=== PATIENT | female | born 1950 | race Caucasian/White ===

== ENCOUNTER 2018-07-29 13:41 | Outpatient (REF) | payer MEDICARE, BC, SELFPAY ==
[2018-07-29 14:14] LABS: Cholesterol 153 mg/dL (50-200); HDL Cholesterol 36 mg/dL (40-60); LDL CHOLESTEROL 93 mg/dL (<100); Triglyceride 291 mg/dL (30-150)
== END 2018-07-29 14:01 ==
LOC: NCHCN 13:41
PROVIDERS: PCP Internal Medicine; Visit Provider Family Medicine
DX: E78.5 Hyperlipidemia, unspecified (principal)
CPT/HCPCS: 80061; 83721

== ENCOUNTER 2019-07-28 14:06 | Outpatient (REF) | payer MEDICARE, BC, SELFPAY ==
[2019-07-28 22:12] LABS: Anion Gap 8.9 mmol/L (3-11); BUN 13 mg/dL (7-18); CO2 27.1 mmol/L (21.0-32.0); CREATININE 0.92 mg/dL (0.55-1.02); Calcium 8.7 mg/dL (8.5-10.1); Chloride 100 mmol/L (98-107); Glucose 74 mg/dL (70-100); Potassium 4.6 mmol/L (3.5-5.1); Sodium 136 mmol/L (136-145)
== END 2019-07-28 14:26 ==
LOC: NCHCN 14:06
PROVIDERS: PCP Internal Medicine; Visit Provider Family Medicine
DX: E87.1 Hypo-osmolality and hyponatremia (principal)
CPT/HCPCS: 80048

== ENCOUNTER 2019-10-20 14:28 | Emergency (ER) | payer MEDICARE, BC, SELFPAY ==
[2019-10-20 14:32] VITALS: BP 156/77; PULSE 71; RESP 16; TEMP 36.3; O2SAT 97
--- NOTE | 2019-10-20 14:48 | ED.GENADUL_ITS ---
Discharge Plan Disposition Patient Disposition: HOME Condition: Good Discharge Details Chief Complaint: Orthopedic Clinical Impression: Subungual hematoma Primary Care Provider: Erin Erickson ED Provider: Nic Tolliver Home Meds and New Rx's Prescriptions: New cephalexin [Keflex] 500 mg capsule 500 mg PO QID 5 Days Qty: 20 RF: 0 No Action atenolol 100 MG tablet 100 mg PO DAILY RF: 0 lovastatin 40 MG tablet 40 mg PO DAILY RF: 0 aspirin [Aspir-81] 81 MG tablet,delayed release (DR/EC) 81 mg PO DAILY RF: 0 levothyroxine 88 MCG tablet 88 mcg PO DAILY RF: 0 metformin [Glucophage] 1,000 MG tablet 1,000 mg PO BID RF: 0 hydrochlorothiazide 25 MG tablet 25 mg PO DAILY RF: 0 lisinopril 40 MG tablet 40 mg PO DAILY RF: 0 liraglutide [Victoza 2-Thee] 0.6 MG/0.1 ML pen injector 1.2 mg SQ DAILY RF: 0 glimiperide 4 mg PO BID RF: 0 humalog kwikpen 2 - 8 units Sub-Q TID RF: 0 lantus 28 units HS RF: 0 zovirax RF: 0 Discharge Instructions Instructions: Subungual Hematoma (ED) Additional Instructions: There is a questionable very small fracture at the distal fingertip. Out of an abundance of precaution I would recommend taking the antibiotic as directed. Please take it with yogurt with live culture. Please keep the splint on for the next week to help with the healing process. Please take Tylenol and Motrin as needed for pain. If you notice any worsening of your symptoms, or any new symptoms such as redness or worsening swelling of your finger, vomiting, diarrhea, fever, chills, shortness of breath, chest pain, numbness, weakness, or fainting , please return immediately to the emergency department for reevaluation. Please follow up with your primary care provider as soon as possible for reassessment and reevaluation. As always, it was a pleasure participating in your medical care today. Referrals: Erin Erickson [Primary Care Provider] - Medical Decision Making This is a pleasant 69-year-old female who presents today for evaluation of trauma to her left thumb. The patient had her left thumb crushed in a car door 5 days ago. It was her nondominant hand. Since then she developed there is subungual hematoma in her left thumb. Pain is mild to moderate. She has no significant pain with movement otherwise. Physical exam demonstrates notable subungual hematoma and well attached nail. The nail was fenestrated with electrocautery, notable amount of blood was removed, no pus. Improvement of pain was certainly present, patient was also given a digital block which also notably improved her symptoms. X-ray is concerning for very small minimal fracture. Out of an abundance of precaution we will prescribe Keflex to prevent/avoid any significant infection. Tetanus will be updated here today. I have extensively reviewed the treatment plan and discharge instructions with the patient. I have addressed all patient concerns at this time. The patient was made aware of what symptoms to monitor for that would warrant a return to the emergency department. Discussed the plan with the patient, they demonstrate verbal understanding and agreement with our assessment and plan at this time. HPI General Date/Time Provider Initiated Documentation: 10/20/19 14:35 . HPI Narrative: This is a 69-year-old female with no significant past medical history except for diabetes, hypertension, thyroid disease, who presents today for evaluation of left thumb pain. 5 days ago on her nondominant hand she squished the tip of her left thumb in a car door. She has had subungual hematoma in her left thumb since then has had pain. She is unsure of her tetanus status. Pain is unrelieved with Tylenol or Motrin. She denies fever chills or redness. Pain is made worse with movement. She denies any other complaints at this time. No other modifying factors. Related Data Home Medications Medication Instructions Recorded Confirmed Glimiperide 4 mg PO BID 12/10/16 12/19/16 Humalog Kwikpen 2 - 8 units SUB-Q TID 12/10/16 12/19/16 Lantus 28 units HS 12/10/16 12/19/16 aspirin [Aspir-81] 81 mg PO DAILY tab-cap 12/10/16 12/19/16 atenolol 100 mg PO DAILY tab-cap 12/10/16 12/19/16 hydrochlorothiazide 25 mg PO DAILY tab-cap 12/10/16 12/19/16 levothyroxine 88 mcg PO DAILY tab-cap 12/10/16 12/19/16 liraglutide [Victoza 2-Thee] 1.2 mg SQ DAILY ml 12/10/16 12/19/16 lisinopril 40 mg PO DAILY tab-cap 12/10/16 12/19/16 lovastatin 40 mg PO DAILY tab-cap 12/10/16 12/19/16 metformin [Glucophage] 1,000 mg PO BID tab-cap 12/10/16 12/19/16 cephalexin [Keflex] 500 mg PO QID 5 Days #20 cap 10/20/19 Previous Rx's Medication Instructions Recorded cephalexin [Keflex] 500 mg PO QID 5 Days #20 cap 10/20/19 Allergies Allergy/AdvReac Type Severity Reaction Status Date / Time No Known Allergies Allergy Unverified 10/20/19 14:36 General Stated Complaint: Orthopedic SABAS: 4 Review of Systems All systems reviewed & are unremarkable except as noted in HPI and below PFSH Surgical History (Updated 09/01/18 @ 14:34 by [facility]) Cholecystectomy Colonoscopy - IV Sedation (12/19/16) Tubal Ligation, Family History Mother CAD (coronary artery disease) Pacemaker Father Diabetes CAD (coronary artery disease) Sister CAD (coronary artery disease) Social History Smoking/Tobacco Use Status: Former Tobacco Use Alcohol Intake: never Drug use: Never Do you feel safe at home: Yes Do you feel safe in your relationship?: Yes Exam Narrative Exam Narrative: 1.Const: Well-nourished, Well-developed, appearing stated age 2.Eyes: PERRL, no conjunctival injection, and symmetrical lids. 3.ENT: Atraumatic external nose and ears. Moist MM. Neck: Symmetric, trachea midline, No thyromegaly. 4.CVS: +S1/S2, No murmurs or gallops. Peripheral pulses 2+ and equal in all extremities. Brisk capillary refill in all extremities. 5.RESP: Unlabored respiratory effort. Clear to auscultation bilaterally. No wheezes rales or rhonchi 6.GI: Soft, Nontender/Nondistended, No hepatosplenomegaly. No guarding or rebound. 7.MSK: Normocephalic. Patient demonstrates evidence of notable contusion and subungual hematoma under her left thumbnail. Patient demonstrates brisk capillary refill, good flexion extension, notable pain on palpation of the distal tip of the finger. No evidence of laceration or other abnormality. No cyanosis or clubbing, Normal movement of all extremities 8.Skin: Warm, Dry. Please see musculoskeletal. 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 Sensation grossly intact, no focal neurologic deficits. 10.Psych: (AAO) x3. Appropriate mood and affect Course Vital Signs Vital signs: Vital Signs Temperature 36.3 C L 10/20/19 14:32 Pulse 71 10/20/19 14:32 Respiratory Rate 16 10/20/19 14:32 Blood Pressure 156/77 H 10/20/19 14:32 Pulse Oximetry 97 10/20/19 14:32 Temperature 36.3 C L 10/20/19 14:32 Temperature Source Skin 10/20/19 14:32 Pulse 71 10/20/19 14:32 Respiratory Rate 16 10/20/19 14:32 Respiratory Effort 10/20/19 14:36 Blood Pressure 156/77 H 10/20/19 14:32 Blood Pressure Position Sitting 10/20/19 14:32 Pulse Oximetry 97 10/20/19 14:32 Oxygen Delivery Method Room Air 10/20/19 14:32 Oxygen Flow Rate 0 10/20/19 14:32 Pain Level 8 10/20/19 14:32 Comment 10/20/19 14:32
--- NOTE | 2019-10-20 14:50 | DI.RAD_ITS ---
EXAM: XR THUMB LT INDICATION: crushed tip. COMPARISON: No exams were available for comparison TECHNIQUE: 2D digital imaging was performed. FINDINGS: Gauze is seen over the thumb. No fracture or foreign body is identified.
[2019-10-20] MEDS: Cephalexin 500 MG CAP PO (15:05)
== END 2019-10-20 15:21 | disposition home or self-care (01) ==
PROVIDERS: Emergency Provider Student in an Organized Health Care Education/Training Program; PCP Family Medicine
DX: S60.111A Contusion of right thumb with damage to nail, initial encounter (principal); W23.0XXA Caught, crushed, jammed, or pinched between moving objects, initial encounter
CPT/HCPCS: 11740; 90471; 99283; 73140; 99281

== ENCOUNTER 2020-02-06 14:37 | Outpatient (REF) | payer MEDICARE, BC, SELFPAY ==
[2020-02-09 09:11] LABS: SARS-CoV-2 RNA Undetected (Undetected); SARS-CoV-2 Specimen Source NASOPHARYGEAL
== END 2020-02-06 14:57 ==
LOC: NCHCN 14:37
PROVIDERS: PCP Family Medicine; Visit Provider Physician Assistant
DX: Z20.828 Contact with and (suspected) exposure to other viral communicable diseases (principal); J06.9 Acute upper respiratory infection, unspecified

== ENCOUNTER 2020-05-28 13:54 | Outpatient (REF) | payer MEDICARE, BC, SELFPAY ==
[2020-05-28 23:45] LABS: Hemoglobin A1C 7.3 % (3.8-5.6)
[2020-05-29 00:02] LABS: BUN 15 mg/dL (7-18); Calcium 8.7 mg/dL (8.5-10.1); Glucose 284 mg/dL (74-106)
[2020-05-29 00:03] LABS: Anion Gap 9.6 mmol/L (3-11); CO2 26.4 mmol/L (21.0-32.0); CREATININE 0.98 mg/dL (0.55-1.02); Chloride 96 mmol/L (98-107); Estimated GFR 56.11 (mL/min/1.73m2); Potassium 4.7 mmol/L (3.5-5.1); Sodium 132 mmol/L (136-145)
[2020-05-29 00:13] LABS: Vitamin D 25 Total 60.1 ng/ml (30-100)
== END 2020-05-28 14:14 ==
LOC: LBN 13:54
PROVIDERS: PCP Family Medicine; Visit Provider Internal Medicine Endocrinology, Diabetes & Metabolism
DX: E55.9 Vitamin D deficiency, unspecified (principal); E11.40 Type 2 diabetes mellitus with diabetic neuropathy, unspecified; E03.8 Other specified hypothyroidism
CPT/HCPCS: 80048; 82306; 83036; 84443

== ENCOUNTER 2020-07-18 21:03 | Outpatient (REF) | payer MEDICARE, BC, SELFPAY ==
[2020-07-21 05:49] LABS: Patient Race White; SARS-CoV-2 RNA Undetected (Undetected); SARS-CoV-2 Specimen Source Nasal
== END 2020-07-18 21:23 ==
LOC: NCHCN 21:03
PROVIDERS: PCP Family Medicine; Visit Provider Family Medicine
DX: Z20.828 Contact with and (suspected) exposure to other viral communicable diseases (principal)
CPT/HCPCS: U0003

== ENCOUNTER 2021-02-01 06:26 | Day surgery (SDC) | payer MEDICARE, BC, SELFPAY ==
[2021-02-01] MEDS: Tropicam./Phenyleph. (1/2.5%) 5 ML BTL OS ×3 (06:47→06:59)
[2021-02-01 06:57] VITALS: BP 158/84; PULSE 67; RESP 16; TEMP 36.3; O2SAT 99
[2021-02-01] MEDS: Lidocaine 1% Pres-Free 5 ML VIAL (07:27)
[2021-02-01] MEDS: Balanced Salt Soln.-PLUS 500 ML BAG (07:29)
[2021-02-01] MEDS: Lidocaine 2% Jelly 6 ML SYR (07:29)
[2021-02-01] MEDS: Povidone-Iodine Ophth 30 ML BTL (07:30)
[2021-02-01] MEDS: Duovisc Viscoelastic System EACH 1 EACH (07:30)
[2021-02-01] MEDS: Tetracaine 0.5% 4 ML BTL OS (07:32)
--- NOTE | 2021-02-01 07:49 | W.PM.DSUDISC ---
Discharge Plan Disposition Patient Disposition: HOME Condition: Good Discharge Details Attending Provider: Geoffrey Yepez Home Meds and New Rx's Prescriptions: No Action lovastatin 40 mg Tablet 40 mg PO DAILY RF: 0 metoprolol succinate 100 mg Tablet Extended Release 24 Hr 100 mg PO DAILY RF: 0 calcium 500 mg Tablet 1,000 mg PO DAILY RF: 0 Theragran Tablet 1 tab PO DAILY RF: 0 aspirin [Aspir-81] 81 mg Tablet,Delayed Release (Dr/Ec) 81 mg PO DAILY RF: 0 levothyroxine 75 mcg Tablet 75 mcg PO DAILY RF: 0 metformin [Glucophage] 1,000 mg Tablet 1,000 mg PO BID RF: 0 glimepiride 4 mg Tablet 4 mg PO BID RF: 0 acyclovir 200 mg Capsule 200 mg PO TID PRNRF: 0 lisinopril 40 mg Tablet 40 mg PO DAILY RF: 0 fluoxetine 20 mg Capsule 20 mg PO DAILY RF: 0 insulin lispro [Humalog KwikPen Insulin] 100 unit/mL Insulin Pen 2 - 8 unit SUBCUT AC RF: 0 Lantus U-100 Insulin 100 unit/mL Cartridge 50 unit SUBCUT HS RF: 0 Victoza 2-Thee 0.6 mg/0.1 mL (18 mg/3 mL) Pen Injector 1.2 mg SUBCUT DAILY RF: 0 Discharge Instructions Stand Alone Forms: Post-op Topical Cataract, Annie Boggs (DSU) Discharge Orders Discharge Orders: Discharge Order (Routine); Ordered 02/01/21 Ordered By: Geoffrey Yepez DS: Diagnosis Discharge Diagnosis (1) Posterior subcapsular age-related cataract of left eye: Status: Resolved (2) Cortical cataract of left eye: Status: Resolved (3) Nuclear sclerotic cataract of left eye: Status: Resolved
--- NOTE | 2021-02-01 07:50 | ROE_ITS ---
Date of service: 02/01/21 Time of Service: 07:50 Operative Note Operative Note DATE OF PROCEDURE: 02/01/21 PRE-OP DIAGNOSIS: Nuclear/cortical/posterior subcapsular cataract, left eye Status post LASIK Desire for monovision, OS near, -2.0 refractive target POST-OP DIAGNOSIS: same PROCEDURE: Cataract extraction using phacoemulsification with intraocular lens implant, left eye SURGEON: Geoffrey Yepez ANESTHESIA TYPE: Local By Surgeon and MAC Refer to Anesthesia Record PATHOLOGY: none sent COMPLICATIONS: None Patient was transported to: same day Patient's condition: stable Implants: Angel [employer] / [employer] Tecnis ZCB00 Indications: Progressive decreased vision due to cataract, left eye Procedure Description: CATARACT SURGERY OPERATIVE REPORT PREOPERATIVE DIAGNOSIS: Nuclear/cortical/posterior subcapsular cataract, left eye Status post LASIK Desire for monovision, OS near, -2.0 target POSTOPERATIVE DIAGNOSIS: Same OPERATION: Cataract extraction using phacoemulsification with posterior chamber intraocular lens implant, left eye. IOL: IOL Clinical Application Consultant/Model: [employer] Vision / [employer] Tecnis ZCB00 IOL Power: + 24.5 diopters IOL Serial Number: [id number] Optic Diameter: 6.0mm Haptic/Overall Diameter: 13.0mm PHACO INFO: Sergo [employer] Vision System with OZil and Active Fluidics Cumulative Dispersed Energy (CDE): 8.35 seconds SURGEON: Geoffrey Yepez MD, RAUL ANESTHESIA: Monitored Anesthesia Care (MAC), with local sub-tenon's anesthetic infiltration COMPLICATIONS: None SPECIMENS: None INDICATIONS FOR PROCEDURE: The patient is a 70-year-old lady who has previously undergone corneal laser refractive surgery. She has now developed symptomatic bilateral nuclear/cortical/posterior subcapsular cataract. She desires cataract surgery and attempt to improve and maximize her vision. In addition, she desires monovision, left eye near. Postoperative refractive target is approximately - 2.0 diopters. The option of cataract surgery was offered to the patient and she wished to proceed. PROCEDURE: The correct surgical eye was identified and marked as the left eye and the pupil was dilated in the preoperative area using mydriatics and cycloplegics. The dilated pupil size was 6.5 mm. Oral sedation was administered in the form of an Imprimis MKO Melt (midazolam 3mg/ketamine 25mg/ondansetron 2mg). The patient was brought to the operating room where cardiopulmonary jaspreet toring was instituted and surgical time-out was performed, confirming the correct operative eye and IOL power. Topical anesthesia was administered and ophthalmic povidone-iodine 5% was instilled into the conjunctival fornices. Lidocaine gel was applied to the cornea and the tavo-ocular area was prepped with Betadine 10% solution and draped in the usual sterile fashion for intraocular surgery, including an aperture drape. A Tegaderm transparent film dressing was cut in half and used to cover the lashes and lid margins. Care was taken to sequester the lashes and lid margins under the Tegaderm dressing. A lid speculum was placed between the lids of the operative eye and the Thom-Tisha operating microscope was maneuvered into position. Osmel scissors were then used to make a conjunctival buttonhole approximately 6mm posterior to the limbus in the inferonasal quadrant. Blunt dissection was carried out to expose bare sclera, and a blunt-tipped sub-tenon?s anesthesia cannula was introduced and passed posteriorly along the globe where non- preserved plain lidocaine was injected into posterior sub-Tenon?s space. A sideport knife was used to make a paracentesis port superior/superiortemporally. Intraocular phenylephrine/lidocaine was injected into the anterior chamber. The anterior chamber was then filled with viscoelastic. A 2.4mm keratome knife was used to create a half-thickness groove at the limbus and then to construct a three-plane near-clear corneal tunnel extending 2.0mm into clear cornea in the temporal position. . A flap was raised on the anterior capsule and capsulorhexis forceps were used to complete a continuous curvilinear capsulorhexis of 5.5 mm. Balanced salt solution was then used to perform cortical cleaving hydrodissection and nuclear hydrodelineation until the lens could be freely rotated within the capsular bag. The lens nucleus was then disassembled and removed within the capsular bag and iris plane using phacoemulsification. Residual cortical material was removed using the 45-degree angled silicone I/A tip with 0.3mm port. The posterior capsule was carefully polished to remove as much residual lens epithelial cells as safely possible. The capsular bag was then inflated and the anterior chamber deepened with viscoelastic. The lens implant described above was inserted into the capsular bag using the MILDRED [place] Injector. A Kuglen hook was used to dial the IOL into position. Residual viscoelastic was then removed first from posterior to the IOL, then from the anterior chamber using the I/A handpiece. The lens implant was noted to center nicely within the capsular bag. The incisions were stromally hydrated, and the anterior chamber was reformed using BSS. Then 0.5cc of moxifloxacin 1.0mg/ml were injected into the capsular bag and anterior chamber. The incisions were checked with a Weck spear and found to be secure. Several drops of ophthalmic povidone-iodine 5% were then applied to the eye followed by two drops of Imprimis combination prednisolone/moxifloxacin/nepafenac solution. The drapes were removed and a clear plastic protective eye shield was placed over the eye. The patient was then returned to Same Day Surgery in stable condition.
[2021-02-01 08:16] VITALS: BP 158/73; PULSE 72; RESP 16; TEMP 36.6; O2SAT 97
== END 2021-02-01 08:41 | disposition home or self-care (01) ==
PROVIDERS: Visit Provider Ophthalmology
PROC: (CPT 66984; principal; 2021-02-01 07:30)
DX: H25.042 Posterior subcapsular polar age-related cataract, left eye (principal); H25.12 Age-related nuclear cataract, left eye; E78.00 Pure hypercholesterolemia, unspecified; I10 Essential (primary) hypertension; E11.9 Type 2 diabetes mellitus without complications; Z79.4 Long term (current) use of insulin; E03.9 Hypothyroidism, unspecified
CPT/HCPCS: 66984; V2632

== ENCOUNTER 2021-02-14 06:45 | Outpatient (CLI) | payer MEDICARE, BC, SELFPAY ==
--- NOTE | 2021-02-14 | DI.MAMMO_ITS ---
EXAM: MG MAMMO SCREENING CLINICAL HISTORY: SCREENING, Z12.31. TECHNIQUE: Bilateral full field digital CC and MLO mammographic images were obtained with 3D tomosyn thesis and utilizing computer aided detection (CAD). COMPARISON: Prior mammograms dating back to 2013, the most recent being October 2016. FINDINGS: There are new microcalcifications posteriorly in the left breast only partially included in the field of view here and requiring spot Mag views. Benign-appearing nodules both breasts are again noted which are unchanged and probably benign lymph n odes. There is no significant architectural distortion nor skin thickening-retraction. IMPRESSION: There is new microcalcification group located quite posteriorly in the left breast, not evident on pr ior mammograms. Spot Mag views recommended this microcalcification group. BI-RADS Category 0 - Assessment Incomplete: Need additional imaging evaluation Breast Density - Category B - Scattered areas of fibroglandular density Breast density Category C or D implies that the patient has dense breast tissue. Dense breast tissue can make it harder to find cancer on a mammogram. Dense breast tissue is also associated with an incr eased risk of breast cancer. This information about the result of the mammogram report was provided to the patient to raise their awareness. Use this report when you speak with the patient about their risks for breast cancer, which includes their family history. At that time, you may recommend additional screening tests (Ultrasoun d or MRI) as these tests may add significant information. A negative radiographic report should not delay biopsy if a dominant or clinically suspicious mass is present. Up to ten percent of cancers are not identified on mammography. A negative report may reinforce clinical impression. Adenosis and dense breasts may obscure an underlying neoplasm. False positive reports average 6 to 10%. Patient will receive a letter notifying them of these results.
== END 2021-02-14 07:05 ==
PROVIDERS: PCP Family Medicine; Visit Provider Family Medicine
DX: Z12.31 Encounter for screening mammogram for malignant neoplasm of breast (principal); R92.8 Other abnormal and inconclusive findings on diagnostic imaging of breast
CPT/HCPCS: 77063; 77067

== ENCOUNTER 2021-02-15 09:45 | Day surgery (SDC) | payer MEDICARE, BC, SELFPAY ==
[2021-02-15] MEDS: Tropicam./Phenyleph. (1/2.5%) 5 ML BTL OD ×3 (09:55→10:10)
[2021-02-15 10:02] VITALS: BP 124/71; PULSE 73; RESP 16; TEMP 36.1; O2SAT 95
[2021-02-15] MEDS: Tetracaine 0.5% 4 ML BTL OD (11:06)
[2021-02-15] MEDS: Lidocaine 1% Pres-Free 5 ML VIAL (11:12)
[2021-02-15] MEDS: Balanced Salt Soln.-PLUS 500 ML BAG (11:15)
[2021-02-15] MEDS: Duovisc Viscoelastic System EACH 1 EACH (11:15)
[2021-02-15] MEDS: Lidocaine 2% Jelly 6 ML SYR (11:16)
[2021-02-15] MEDS: Povidone-Iodine Ophth 30 ML BTL (11:18)
--- NOTE | 2021-02-15 11:38 | W.PM.DSUDISC ---
Discharge Plan Disposition Patient Disposition: HOME Condition: Good Discharge Details Attending Provider: Geoffrey Yepez Home Meds and New Rx's Prescriptions: No Action hydrochlorothiazide 25 MG tablet 25 mg PO DAILY RF: 0 lovastatin 40 mg Tablet 40 mg PO DAILY RF: 0 metoprolol succinate 100 mg Tablet Extended Release 24 Hr 100 mg PO DAILY RF: 0 calcium 500 mg Tablet 1,000 mg PO DAILY RF: 0 Theragran Tablet 1 tab PO DAILY RF: 0 aspirin [Aspir-81] 81 mg Tablet,Delayed Release (Dr/Ec) 81 mg PO DAILY RF: 0 levothyroxine 75 mcg Tablet 75 mcg PO DAILY RF: 0 metformin [Glucophage] 1,000 mg Tablet 1,000 mg PO BID RF: 0 glimepiride 4 mg Tablet 4 mg PO BID RF: 0 acyclovir 200 mg Capsule 200 mg PO TID PRNRF: 0 lisinopril 40 mg Tablet 40 mg PO DAILY RF: 0 fluoxetine 20 mg Capsule 20 mg PO DAILY RF: 0 insulin lispro [Humalog KwikPen Insulin] 100 unit/mL Insulin Pen 2 - 8 unit SUBCUT AC RF: 0 Lantus U-100 Insulin 100 unit/mL Cartridge 50 unit SUBCUT HS RF: 0 Victoza 2-Thee 0.6 mg/0.1 mL (18 mg/3 mL) Pen Injector 1.2 mg SUBCUT DAILY RF: 0 Discharge Instructions Stand Alone Forms: Post-op Topical Cataract, Press Ganey (DSU) Discharge Orders Discharge Orders: Discharge Order (Routine); Ordered 02/15/21 Ordered By: Geoffrey Yepez DS: Diagnosis Discharge Diagnosis (1) Nuclear sclerotic cataract of right eye: Status: Resolved (2) Cortical cataract of right eye: Status: Resolved
--- NOTE | 2021-02-15 11:38 | ROE_ITS ---
Date of service: 02/15/21 Time of Service: 11:38 Operative Note Operative Note DATE OF PROCEDURE: 02/15/21 PRE-OP DIAGNOSIS: Nuclear/cortical cataract, right eye POST-OP DIAGNOSIS: same PROCEDURE: Cataract extraction using phacoemulsification with intraocular lens implant, right eye SURGEON: Geoffrey Yepez ANESTHESIA TYPE: Local By Surgeon and MAC Refer to Anesthesia Record ESTIMATED BLOOD LOSS: 0 PATHOLOGY: none sent COMPLICATIONS: None Patient was transported to: same day Patient's condition: stable Implants: [employer] / [employer] Tecnis ZCB00 intraocular lens Indications: Progressive decreased vision due to cataract, right eye Procedure Description: CATARACT SURGERY OPERATIVE REPORT PREOPERATIVE DIAGNOSIS: Nuclear/cortical cataract, right eye Status post corneal laser refractive surgery POSTOPERATIVE DIAGNOSIS: Same OPERATION: Cataract extraction using phacoemulsification with posterior chamber intraocular lens implant, right eye. IOL: IOL Drywall Professional/Model: [employer]J Vision / [employer] T[employer]nis ZCB00 IOL Power: + 23.0 diopters IOL Serial Number: [id number] Optic Diameter: 6.0mm Haptic/Overall Diameter: 13.0mm PHACO INFO: Sergo [employer] Vision System with OZil and Active Fluidics Cumulative Dispersed Energy (CDE): 8.01 seconds SURGEON: Geoffrey Yepez MD, RAUL ANESTHESIA: Monitored Anesthesia Care (MAC), with local sub-tenon's anesthetic infiltration COMPLICATIONS: None SPECIMENS: None INDICATIONS FOR PROCEDURE: The patient is a 70-year-old lady who has previously undergone corneal laser refractive surgery who has now developed significant nuclear and cortical cataracts. She has already undergone cataract surgery in the left eye and is doing well postoperatively. She now presents for cataract surgery in the right eye. PROCEDURE: The correct surgical eye was identified and marked as the right eye and the pupil was dilated in the preoperative area using mydriatics and cycloplegics. The dilated pupil size was 7.0 mm. Oral sedation was administered in the form of an Imprimis MKO Melt (midazolam 3mg/ketamine 25mg/ondansetron 2mg). The patient was brought to the operating room where cardiopulmonary monitoring was instituted and surgical time-out was performed, confirming the correct operative eye and IOL power. Topical anesthesia was administered and ophthalmic povidone-iodine 5% was instilled into the conjunctival fornices. Lidocaine gel was applied to the cornea and the tavo-ocular area was prepped with Betadine 10% solution and draped in the usual sterile fashion for intraocular surgery, including an aperture drape. A Tegaderm transparent film dressing was cut in half and used to cover the lashes and lid margins. Care was taken to sequester the lashes and lid margins under the Tegaderm dressing. A lid speculum was placed between the lids of the operative eye and the Thom-Tisha operating microscope was maneuvered into position. Osmel scissors were then used to make a conjunctival buttonhole approximately 6mm posterior to the limbus in the inferonasal quadrant. Blunt dissection was carried out to expose bare sclera, and a blunt-tipped sub-tenon?s anesthesia cannula was introduced and passed posteriorly along the globe where non- preserved plain lidocaine was injected into posterior sub-Tenon?s space. A sideport knife was used to make a paracentesis port inferiortemporally. Intraocular phenylephrine/lidocaine was injected into the anterior chamber. The anterior chamber was then filled with viscoelastic. A 2.4mm keratome knife was used to create a half-thickness groove at the limbus and then to construct a three-plane near-clear corneal tunnel extending 2.0mm into clear cornea in the superiortemporal position. . A flap was raised on the anterior capsule and capsulorhexis forceps were used to complete a continuous curvilinear capsulorhexis of 5.5 mm. Balanced salt solution was then used to perform cortical cleaving hydrodissection and nuclear hydrodelineation until the lens could be freely rotated within the capsular bag. The lens nucleus was then disassembled and removed within the capsular bag and iris plane using phacoemulsification. Residual cortical material was removed using the I/A handpiece. The posterior capsule was carefully polished to remove as much residual lens epithelial cells as safely possible. The capsular bag was then inflated and the anterior chamber deepened with viscoelastic. The lens implant described above was inserted into the capsular bag using the [employer]ED [place] Injector. A Kuglen hook was used to dial the IOL into position. Residual viscoelastic was then removed first from posterior to the IOL, then from the anterior chamber using the I/A handpiece. The lens implant was noted to center nicely within the capsular bag. The incisions were stromally hydrated, and the anterior chamber was reformed using BSS. Then 0.5cc of moxifloxacin 1.0mg/ml were injected into the capsular bag and anterior chamber. The incisions were checked with a Weck spear and found to be secure. Several drops of ophthalmic povidone-iodine 5% were then applied to the eye followed by two drops of Imprimis combination prednisolone/moxifloxacin/nepafenac solution. The drapes were removed and a clear plastic protective eye shield was placed over the eye. The patient was then returned to Same Day Surgery in stable condition.
[2021-02-15 12:05] VITALS: BP 142/79; PULSE 74; RESP 16; TEMP 36.6; O2SAT 95
== END 2021-02-15 12:29 | disposition home or self-care (01) ==
PROVIDERS: Visit Provider Ophthalmology
PROC: (CPT 66984; principal; 2021-02-15 12:30)
DX: H25.11 Age-related nuclear cataract, right eye (principal); H25.011 Cortical age-related cataract, right eye; Z96.1 Presence of intraocular lens; Z98.42 Cataract extraction status, left eye; I10 Essential (primary) hypertension
CPT/HCPCS: 66984; V2632

== ENCOUNTER 2021-02-21 01:04 | Outpatient (CLI) | payer MEDICARE, BC, SELFPAY ==
--- NOTE | 2021-02-21 | DI.MAMMO_ITS ---
EXAM: MG MAMMO SCREEN CALL BACK UNI CLINICAL HISTORY: F/U MAMMO, NEW LT MICROCALCIFICATIONS TECHNIQUE: Spot compression magnification views were performed in CC and MLO projections of the pos terior inferior left breast. COMPARISON: 2013 through recent exam 14 February 2021. FINDINGS: The recent exam showed calcifications partially included on the left cc view. The calcifications wer e difficult to include on the spot magnification views due to the far posterior location. They show a coarse, benign appearance. There is no associated architectural distortion.. IMPRESSION: BI-RADS Category 2 - Benign Findings Yearly screening mammography is recommended. Breast Density - Category B, scattered fibroglandular densities.
== END 2021-02-21 01:24 ==
PROVIDERS: Visit Provider Family Medicine
DX: Z12.31 Encounter for screening mammogram for malignant neoplasm of breast (principal); R92.8 Other abnormal and inconclusive findings on diagnostic imaging of breast; N64.59 Other signs and symptoms in breast
CPT/HCPCS: 77063; 77067

== ENCOUNTER 2021-09-19 08:26 | Outpatient (REF) | payer MEDICARE, BC, SELFPAY ==
[2021-09-19 14:14] LABS: ALT 19 U/L (14-59); AST 17 U/L (15-37); Albumin 3.9 g/dL (3.4-5.0); Alkaline Phosphatase 64 U/L (46-116); Anion Gap 6.8 mmol/L (3-11); BUN 17 mg/dL (7-18); Bilirubin, Total 0.4 mg/dL (0.2-1.0); CO2 31.2 mmol/L (21.0-32.0); Calcium 8.9 mg/dL (8.5-10.1); Calculated LDL 76 mg/dL (<100); Chloride 96 mmol/L (98-107); Cholesterol 157 mg/dL (<200); Glucose 159 mg/dL (74-106); HDL Cholesterol 41 mg/dL (40-60); Potassium 4.9 mmol/L (3.5-5.1); Sodium 134 mmol/L (136-145); Total Protein 6.5 g/dL (6.4-8.2); Triglyceride 202 mg/dL (<150)
[2021-09-19 14:19] LABS: Hemoglobin A1C 8.5 % (<5.7)
== END 2021-09-19 08:27 | disposition home or self-care (01) ==
LOC: NCHCN 08:26
PROVIDERS: Visit Provider Family Medicine
DX: E11.40 Type 2 diabetes mellitus with diabetic neuropathy, unspecified (principal); I10 Essential (primary) hypertension; E78.5 Hyperlipidemia, unspecified
CPT/HCPCS: 80053; 80061; 83036

== ENCOUNTER 2021-12-24 02:24 | Outpatient (CLI) | payer MEDICARE, SELFPAY ==
--- NOTE | 2021-12-24 14:00 | NS.NUTBLAN_ITS ---
Luis Miguel was referred to [facility] for diabetes self management education. 5'2 133 lbs BMI 24. PMH: DM2, hypertension, hyperlipidemia. Reports losing about 50 lbs in last couple of years secondary to stress and starting victoza- no appetite. Estimated Nutrient Needs: [id number] kcal, 60-70 g protein, 45-55 g fat Most recent labs (12/16/21) A1C: 7.9% chol: 157, LDL: 76, HDL: 41, Tri Meds: metformin 1000 mg BID Glimepiride 4 mg BID victoza 1.2 mg qd Humalog 2-8 units QID Lantus: 50 u q hs lisinopril, metoprolol, lovastatin MVI, [place] with D No formal exercise Diet Recall: yogurt parfait, hot dog, 1/2 cup noodles, 1/2 cup baked beans, coke Luis Miguel requests help to lower her A1C and states that stress from recent divorce and poor eating habits have taken its toll. Currently, she is not eating in excess, suspect high blood sugars due mostly to stress and anxiety. She reports having no appetite at all since taking victoza and has to force herself to eat twice daily. Typically eats a yogurt for breakfast and has a small dinner. Does drink coke during day. Session today focused on how to adjust her diet to meet her nutrient needs. She is willing to try Coke Zero and take a Glucerna shake for lunch. We also discussed importance of checking blood sugars. She does check her blood sugars in AM. Typically, running 170-180 mg/dl fasting and 220-240 mg after meals. Reports no hypoglycemic events. Dexcom 6 continuous glucose monitor offered and placed. Direct feed back on meal choices will be a great teaching tool. Will follow up with PCP for script for sensors- will need 3 sensors per month. Using her iphone as reader. Traveling to [place] this week. Follow up appt. scheduled for 01/09/22 at 2 pm for data down load. Will fax glycemic info to PCP at that time.
== END 2021-12-24 02:25 | disposition home or self-care (01) ==
LOC: DS 02:24
PROVIDERS: Visit Provider Dietitian, Registered
DX: E11.9 Type 2 diabetes mellitus without complications (principal); Z71.3 Dietary counseling and surveillance
CPT/HCPCS: 97802

== ENCOUNTER 2022-01-09 02:53 | Outpatient (CLI) | payer MEDICARE, SELFPAY | END 2022-01-09 02:54 | disposition home or self-care (01) | LOC: DS 02:54 | PROVIDERS: Visit Provider Dietitian, Registered ==

== ENCOUNTER 2022-01-16 04:41 | Outpatient (CLI) | payer MEDICARE, SELFPAY ==
--- NOTE | 2022-01-16 13:00 | NS.NUTBLAN_ITS ---
Luis Miguel returns for diabetes self management education. She has used a Dexcom G6 continuous glucose monitor from 12/19/21-01/01/22. Was unable to cook pickled meat new sensors as not approved by pharmacy. She enjoyed wearing the CGM as it kept her more mindful and aware of foods that cause hyperglycemia. Home Dm meds: 16 units lantus PM, 3-5 units humolog TID 24 hour recall: yogurt, pork rinds, hashbrowns, hot dog, pork and beans. Has stopped eating bread and pastries Ambulatory Glucose Profile (12/18-01/01/22) Average Blood Sugar: 173 mg/dl Time in Range (70-180 mg/dl): 57.3% 180-250 mg/dl: 42% >250 mg/dl: 8.7% no hypoglycemic events Blood sugars are not well controlled as per CGM report. Will benefit from continued use of CGM as feedback and as a teaching tool. [employer] to follow up with PCP office about getting approval for CGM by DME as needed with medicare. Luis Miguel takes insulin 4 times per day, making her eligible for a CGM through an DME. Luis Miguel as made some progress on her diet but continues to have elevated blood sugars. Would benefit from increase in long acting insulin, and splitting dose with an AM and PM dose. Plan: Luis Miguel to follow up with PCP re: insulin adjustment [employer] to follow up with PCP office re: approve for CGM with Medicare
== END 2022-01-16 04:42 | disposition home or self-care (01) ==
PROVIDERS: Visit Provider Dietitian, Registered
DX: E11.9 Type 2 diabetes mellitus without complications (principal); Z79.4 Long term (current) use of insulin; Z71.3 Dietary counseling and surveillance
CPT/HCPCS: 97803

== ENCOUNTER → 2023-06-26 00:54 | Outpatient (CLI) | payer MEDICARE, SELFPAY ==
--- NOTE | 2023-06-26 | DI.MAMMO_ITS ---
Exam(s) MAMMO SCREENING EXAM: MAMMO SCREENING CLINICAL HISTORY: SCREENING, Z12.31,WELL ADULT PREVENTATIVE CARE,Z00.00 TECHNIQUE: Mammograms were interpreted according to the usual protocol including computer analysis w ith CAD system, tomosynthesis and C-view imaging. COMPARISON: 2013 through 2020 FINDINGS: The breasts are composed of scattered fibroglandular densities, Breast Density category B. No suspicious masses or suspicious microcalcifications are seen. No skin thickening or abnormal axillary lymph nodes are seen. There has been no significant change from prior exams. IMPRESSION: BI-RADS Category 1, Negative mammogram Yearly screening mammography is recommended. Breast Density - Category B, scattered fibroglandular densities. A negative radiographic report should not delay biopsy if a dominant or clinically suspicious mass is present. Up to ten percent of cancers are not identified on mammography. A negative report may reinforce clinical impression. Adenosis and dense breasts may obscure an underlying neoplasm. False positive reports average 6 to 10%. Patient will receive a letter notifying them of these results.
== END ==
PROVIDERS: Visit Provider Family Medicine
DX: Z12.31 Encounter for screening mammogram for malignant neoplasm of breast (principal)
CPT/HCPCS: 77063; 77067

== ENCOUNTER 2023-09-16 18:38 | Outpatient (REF) | payer MEDICARE, SELFPAY ==
[2023-09-16 14:54] LABS: Abs Immature Grans 0.02 10^3/uL (0.0-0.06); Absolute Basophil Count 0.03 10^3/uL (0.0-0.2); Absolute Eosinophil Count 0.18 10^3/uL (0.0-0.7); Absolute Lymphocyte Count 1.71 10^3/uL (1.2-3.4); Absolute Monocyte Count 0.47 10^3/uL (0.1-0.8); Absolute Neutrophil Count 3.47 10^3/uL (1.2-6.7); Basophils % 0.5; Eosinophils % 3.1; HCT 35.5 % (36.0-46.0); Immature Grans % 0.3; Lymphocytes % 29.1; MCH 27.3 pg (27.0-33.0); MCHC 33.8 % (32.0-36.0); MCV 81 fL (80-95); MPV 10.5 fL (8.0-11.0); Platelet Count 314 10^3/uL (130-400); RDW 13.1 % (11.7-14.6); RDW-SD 38.6 fL; WBC 5.88 10^3/uL (4.4-10.8)
[2023-09-16 15:24] LABS: ALT 19 U/L (14-59); AST 15 U/L (15-37); Albumin 3.9 g/dL (3.4-5.0); Alkaline Phosphatase 55 U/L (46-116); Anion Gap 12.4 mmol/L (3-11); BUN 26 mg/dL (7-18); Bilirubin, Total 0.4 mg/dL (0.2-1.0); CO2 21.6 mmol/L (21.0-32.0); CREATININE 1.3 mg/dL (0.55-1.02); Calcium 8.8 mg/dL (8.5-10.1); Chloride 89 mmol/L (98-107); Estimated GFR 43.15 (mL/min/1.73m2); Glucose 193 mg/dL (74-106); Potassium 4.2 mmol/L (3.5-5.1); Total Protein 6.8 g/dL (6.4-8.2)
[2023-09-16 15:42] LABS: Sodium 123 mmol/L (136-145)
== END 2023-09-16 18:39 | disposition home or self-care (01) ==
LOC: NCHCN 18:38
PROVIDERS: PCP Family Medicine; Visit Provider Family Medicine
DX: R19.7 Diarrhea, unspecified (principal)
CPT/HCPCS: 80053; 85025

== ENCOUNTER 2023-09-18 16:50 | Outpatient (REF) | payer MEDICARE, SELFPAY ==
[2023-09-18 14:34] LABS: Anion Gap 11.1 mmol/L (3-11); BUN 12 mg/dL (7-18); CO2 24.9 mmol/L (21.0-32.0); Calcium 9.2 mg/dL (8.5-10.1); Chloride 95 mmol/L (98-107); Estimated GFR 59.12 (mL/min/1.73m2); Glucose 88 mg/dL (74-106); Potassium 4.5 mmol/L (3.5-5.1); Sodium 131 mmol/L (136-145)
== END 2023-09-18 16:51 | disposition home or self-care (01) ==
LOC: NCHCN 16:50
PROVIDERS: PCP Family Medicine; Visit Provider Family Medicine
DX: R19.7 Diarrhea, unspecified (principal)
CPT/HCPCS: 80048

== ENCOUNTER 2023-11-24 16:33 | Emergency (ER) | payer MEDICARE, SELFPAY ==
[2023-11-24 16:46] VITALS: BP 147/72; PULSE 79; RESP 18; TEMP 36.9; O2SAT 98
--- NOTE | 2023-11-24 17:20 | DI.RAD_ITS ---
Exam(s) XR FOOT RT COMPLETE EXAM: XR FOOT RT COMPLETE CLINICAL HISTORY: Right foot pain. TECHNIQUE: 2D digital imaging was performed of the right foot. Three images were obtained. AP, obl ique and lateral views were obtained. COMPARISON: No exams were available for comparison FINDINGS: BONES: No acute fracture is present. No bony destructive lesion is seen. There is a tiny spur at the plantar surface of the calcaneus. JOINTS: No dislocation present. The joint spaces are well maintained. SOFT TISSUE: Normal. IMPRESSION: No acute abnormality. DATA REPOSITORY: RADIATION DOSE DELIVERED:
--- NOTE | 2023-11-24 17:40 | ED.GENADUL_ITS ---
HPI General Stated Complaint: Orthopedic SABAS: 4 Date/Time Provider Initiated Documentation: 11/24/23 16:51. HPI Narrative: MDM This is a overall very well-appearing normothermic and not tachycardic 73-year-old insulin-dependent diabetic female with right erythema with signs of infection concerning for cellulitis. No pain out of proportion to suggest necrotizing soft tissue infection. Her feet are well cared for and she has no diabetic foot ulcers. No fluctuance to suggest abscess. Patient and I discussed whether or not her symptoms could be secondary to gout. She has no history of gout and her pain is not limited to 1 joint so my suspicion is lower for gout. Furthermore patient is not an alcoholic. I advised that she elevate her foot. I did not put her in a splint as I want her to monitor her foot. I offered her a work note which she declined. I advised that her foot may become slightly more swollen and more red in the next 24 hours but that if she had sudden worsening in her pain, fevers, cannot eat or drink as result of nausea or vomiting that she should return immediately to the emergency department. She understood her return indications and was discharged with empiric trial of expectant outpatient management. I treated her with clindamycin 450 mg every 8 for 14 days. 5:43 PM I asked health progressive care unit registered nurse Gail to have the patient seen by her primary care later this week for follow-up in setting of her right diabetic foot cellulitis. Chronic conditions affecting the care of the patient: Diabetes History obtained from an outside historian: N/A External record review: N/A Medications: Clindamycin Social determinants of health affecting disposition: N/A Management discussed with: N/A Treatment/interventions considered: N/A Response to therapies provided: N/A HPI This is a 73-year-old diabetic female arrived to the emergency department via private vehicle in the setting of right foot pain. Patient reports that yesterday morning she woke up and her foot on the right felt painful and swollen. It felt slightly better during the day and then returned today. She has no history of trauma to her right foot. No prior history of similar symptoms in the past. No history of gout. Patient denies routine tobacco, ethanol, and illicits. She works on a [employer] office and oftentimes is sitting. She has no diabetic foot ulcers. Her hemoglobin A1c is 7.1%. She has been recently taken off of her glargine. No fevers chills nausea vomiting chest pain or shortness of breath. Exam General: Well-appearing in no acute distress speaking in complete sentences. Head: Normocephalic, atraumatic. Eye: Extraocular eye movements intact. No conjunctival injection. No scleral icterus. Ear, nose, mouth, throat: Grossly normal inspection. Normal voice, handling secretions normally. Neck: Trachea midline. Cardiovascular: Well-perfused distal extremities. Respiratory: Nonlabored respiration. Gastrointestinal: Nondistended abdomen. Musculoskeletal: Right foot well-perfused with 2+ PT and DP pulses. Right foot is slightly warm and has mild swelling with mild erythema. No pain out of proportion. No fluctuance. Cap refill less than 2 seconds of the right toes. Patient is able to dorsi and plantarflex on the right with 5/5 strength. Patient has no signs of diabetic foot ulcers. Patient is not missing any toes on the right. Skin: Normal for age and race, grossly normal temperature and turgor. No acute rash. Neurologic: Alert and appropriate, no apparent acute deficits. Psychiatric: Mood and manner are appropriate. Grooming and personal hygiene are appropriate. Related Data Home Medications Medication Instructions Recorded Confirmed acyclovir 200 mg capsule 200 mg PO TID PRN 01/29/21 11/24/23 aspirin 81 mg tablet,delayed 81 mg PO DAILY 01/29/21 11/24/23 release calcium 500 mg tablet 1,000 mg PO DAILY 01/29/21 11/24/23 glimepiride 4 mg tablet 4 mg PO BID 01/29/21 11/24/23 insulin glargine 100 unit/mL 50 unit subcut HS 01/29/21 11/24/23 subcutaneous cartridge insulin lispro 100 unit/mL 2 - 8 unit subcut AC 01/29/21 11/24/23 subcutaneous pen (Humalog KwikPen (U-100) Insulin) levothyroxine 75 mcg tablet 75 mcg PO DAILY 01/29/21 11/24/23 liraglutide 0.6 mg/0.1 mL (18 mg/3 1.2 mg subcut DAILY 01/29/21 11/24/23 mL) subcutaneous pen injector (Victoza 2-Thee) lovastatin 40 mg tablet 40 mg PO DAILY 01/29/21 11/24/23 metformin 1,000 mg tablet 1,000 mg PO BID 01/29/21 11/24/23 (Glucophage) metoprolol succinate 100 mg 100 mg PO DAILY 01/29/21 11/24/23 tablet,extended release 24 hr therapeutic multivitamin 1 tab PO DAILY 01/29/21 11/24/23 lisinopril 20 2 tab PO DAILY 07/09/23 11/24/23 mg-hydrochlorothiazide 12.5 mg tablet omeprazole 40 mg capsule,delayed 40 mg PO DAILY 07/09/23 11/24/23 release clindamycin HCl 150 mg capsule 450 mg (3 x 150 mg) PO Q8H 14 days 11/24/23 #126 caps Previous Rx's Medication Instructions Recorded clindamycin HCl 150 mg capsule 450 mg (3 x 150 mg) PO Q8H 14 days 11/24/23 #126 caps Allergies Allergy/AdvReac Type Severity Reaction Status Date / Time betamethasone Allergy Intermediate Skin Rash Unverified 11/24/23 16:49 [From Lotrisone] clotrimazole [From Lotrisone] Allergy Intermediate Skin Rash Unverified 11/24/23 16:49 PFSH All Active Problems (Updated 11/24/23 @ 17:40 by Edwin Hensley MD) Cellulitis of right foot (Acute) Dysphagia (Acute) Medical History (Updated 11/24/23 @ 17:40 by Edwin Hensley MD) Diabetes mellitus Depression Hypothyroidism Hyperlipemia Hypertension Bilateral cataracts Surgical History (Updated 02/15/21 @ 11:38 by Geoffrey Yepez MD) Hx of cataract surgery [place] teeth extracted History of esophagogastroduodenoscopy (EGD) Hx of colonoscopy Hx of cholecystectomy Tubal Ligation, Colonoscopy - IV Sedation (12/19/16) Cholecystectomy Family History Mother CAD (coronary artery disease) Pacemaker Father Diabetes CAD (coronary artery disease) Sister CAD (coronary artery disease) Social History (System 02/13/21 @ 11:22 by Wu Pelayo) Smoking/Tobacco Use Status: Former Tobacco Use Quit Date: 11/16/03 Smoking risk assessment performed?: Yes Alcohol Intake: never Drug use: Never Substance use type: does not use Do you feel safe at home: Yes Do you feel safe in your relationship?: Yes Course Vital Signs Vital signs: Vital Signs Temperature 36.9 C 11/24/23 16:46 Pulse 79 11/24/23 16:46 Respiratory Rate 18 11/24/23 16:46 Blood Pressure 147/72 H 11/24/23 16:46 Pulse Oximetry 98 11/24/23 16:46 Temperature 36.9 C 11/24/23 16:46 Temperature Source Skin 11/24/23 16:46 Pulse 79 11/24/23 16:46 Respiratory Rate 18 11/24/23 16:46 Blood Pressure 147/72 H 11/24/23 16:46 Blood Pressure Position Sitting 11/24/23 16:46 Pulse Oximetry 98 11/24/23 16:46 Oxygen Delivery Method Room Air 11/24/23 16:46 Oxygen Flow Rate 0 11/24/23 16:46 Pain Level 9 11/24/23 16:46 Medical Decision Making Quality:SDOH Health Related Social Needs: No Data to Display Discharge Plan Disposition Patient Disposition: Home Discharge Details Clinical Impression: Cellulitis of right foot Primary Care Provider: Erin Erickson ED Provider: Edwin Hensley Home Meds and New Rx's Prescriptions: New clindamycin HCl 150 mg capsule 450 mg PO Q8H 14 Days Qty: 126 0RF Continued lisinopril-hydrochlorothiazide 20-12.5 mg tablet 2 tab PO DAILY omeprazole 40 mg capsule,delayed release(DR/EC) 40 mg PO DAILY lovastatin 40 mg Tablet 40 mg PO DAILY Hold Instructions: by pcp metoprolol succinate 100 mg Tablet Extended Release 24 Hr 100 mg PO DAILY calcium 500 mg Tablet 1,000 mg PO DAILY therapeutic multivitamin Tablet 1 tab PO DAILY aspirin 81 mg Tablet,Delayed Release (Dr/Ec) 81 mg PO DAILY levothyroxine 75 mcg Tablet 75 mcg PO DAILY metformin [Glucophage] 1,000 mg Tablet 1,000 mg PO BID glimepiride 4 mg Tablet 4 mg PO BID acyclovir 200 mg Capsule 200 mg PO TID PRN insulin lispro [Humalog KwikPen Insulin] 100 unit/mL Insulin Pen 2 - 8 unit SUBCUT AC Rx Instructions: TID FOR CORRECTION OF HIGH BG >150 insulin glargine 100 unit/mL Cartridge 50 unit SUBCUT HS Victoza 2-Thee 0.6 mg/0.1 mL (18 mg/3 mL) Pen Injector 1.2 mg SUBCUT DAILY Discharge Instructions Instructions: Cellulitis (ED) Additional Instructions: You were seen in the emergency department for your foot pain. You are receiving antibiotics that you should take as directed. Please return to the emergency department if you develop worsening pain streaking signs of infection or any fevers. Otherwise please follow-up with your primary care provider. Discharge Data Discharge Date/Time-TO BE ENTERED AT DEPARTURE: 11/24/23 17:52
[2023-11-24] MEDS: Clindamycin 150 MG CAP 450 MG PO (17:47)
--- NOTE | 2023-11-24 17:48 | NUR.NOTE ---
Referral Faxed to [facility] for Pt to be seen by her Primary Care Provider this week for a right foot infection.
== END 2023-11-24 17:52 | disposition home or self-care (01) ==
PROVIDERS: Emergency Provider Emergency Medicine; PCP Family Medicine
DX: L03.115 Cellulitis of right lower limb (principal); R13.10 Dysphagia, unspecified; E11.9 Type 2 diabetes mellitus without complications; E03.8 Other specified hypothyroidism; E78.5 Hyperlipidemia, unspecified; I10 Essential (primary) hypertension; Z79.82 Long term (current) use of aspirin; Z79.4 Long term (current) use of insulin; Z79.84 Long term (current) use of oral hypoglycemic drugs; Z87.891 Personal history of nicotine dependence
CPT/HCPCS: 99283; 73630

== ENCOUNTER → 2024-01-28 02:36 | Outpatient (CLI) | payer MEDICARE, SELFPAY ==
--- NOTE | 2024-01-28 | DI.RAD_ITS ---
Exam(s) XR LUMBAR SPINE COMPLETE EXAM: XR LUMBAR SPINE COMPLETE CLINICAL HISTORY: M54.31 Sciatica, right side. TECHNIQUE: 2D digital imaging was performed. COMPARISON: No exams were available for comparison FINDINGS: Five views. No evidence of fracture. Mild degenerative anterolisthesis L4 upon L5 related to facet arthropathy. There are no pars defects at this level. There is no disc space narrowing at this level nor other l evels in the lumbar spine and there is no scoliosis. Some degenerative changes are noted in the facet joints at the lower 3 levels. Sacroiliac joints cabrera ear unremarkable. Twelfth ribs are small. Calcification noted in the abdominal aorta and common iliac arteries. IMPRESSION: Mild findings as above. If clinically indicated flexion and extension lateral views can be performed to determine the true amount of slippage of L4 upon L5 during everyday activities. DATA REPOSITORY: RADIATION DOSE DELIVERED:
== END ==
PROVIDERS: PCP Family Medicine; Visit Provider Family Medicine
DX: M54.31 Sciatica, right side (principal)
CPT/HCPCS: 72110

== ENCOUNTER → 2024-02-29 04:57 | Outpatient (CLI) | payer MEDICARE, SELFPAY ==
--- NOTE | 2024-02-29 | DI.MRI_ITS ---
Exam(s) MR LUMBAR SPINE WO EXAM: MR LUMBAR SPINE WO CLINICAL HISTORY: LUMBAGO WITH SCIATICA PRECIOUS, M54.40. TECHNIQUE: Multiplanar multisequence MRI of the Lumbar spine was performed. COMPARISON: CR XR LUMBAR SPINE COMPLETE from 01/28/2024 FINDINGS: Bones: The last intervertebral disc space is designated the L5/S1 level for the numbering purpose of this examination. The vertebral body heights are well maintained. There is a mild left convex curva ture of the lumbar spine. The signal characteristics are unremarkable. Cord: The conus tip ends at the T12 level. It is of normal size and signal intensity. T12-L1: No disc herniations or bulges are present. No central spinal canal or neural foraminal stenos is. L1-2: No disc herniations or bulges are present. No central spinal canal or neural foraminal stenosis . L2-3: No disc herniations or bulges are present. No central spinal canal or neural foraminal stenosis . L3-4: There is a diffuse disc bulge. There are degenerative changes of the facets and hypertrophy of the ligamentum flavum. These all contribute to cause moderate narrowing of the central spinal canal . There is mild right neural foraminal stenosis. No significant left neural foraminal stenosis. L4-5: There is a mild diffuse disc bulge. There are degenerative changes of the facets bilaterally. There is a 0.6 cm synovial cyst associated with the right L4-5 facet joint. It does project into th e central spinal canal. There are hypertrophic changes of the ligamenta flavum. The findings do res ult in mild narrowing of the central spinal canal. There is mild right neural foraminal narrowing an d no significant left neural foraminal stenosis. L5-S1: No disc herniations or bulges are present. No central spinal canal or neural foraminal stenosi s. Soft tissues: The visualized SI joints and sacrum are well maintained. The paraspinal soft tissues ar e unremarkable. IMPRESSION: 1. Degenerative changes at L3-L4 causing moderate central spinal canal stenosis and mild right neural foraminal stenosis. 2. Degenerative changes at L4-L5 causing mild central spinal canal stenosis and mild right neural for aminal stenosis. DATA REPOSITORY:
== END ==
PROVIDERS: PCP Family Medicine; Visit Provider Family Medicine
DX: M54.41 Lumbago with sciatica, right side (principal); M71.38 Other bursal cyst, other site; M54.42 Lumbago with sciatica, left side; M51.26 Other intervertebral disc displacement, lumbar region
CPT/HCPCS: 72148

== ENCOUNTER 2024-03-13 14:05 | Emergency (ER) | payer MEDICARE, SELFPAY ==
[2024-03-13 14:09] VITALS: PULSE 78; RESP 18; TEMP 36.2; O2SAT 99
[2024-03-13 14:13] VITALS: BP 248/99
--- NOTE | 2024-03-13 14:41 | ED.GENADUL_ITS ---
Discharge Plan Disposition Patient Disposition: Home Condition: Good Discharge Details Clinical Impression: Right sciatic nerve pain Primary Care Provider: Erin Erickson ED Provider: Nic Tolliver Home Meds and New Rx's Prescriptions: New prednisone 50 mg tablet 50 mg PO DAILY Qty: 5 0RF No Action lisinopril-hydrochlorothiazide 20-12.5 mg tablet 2 tab PO DAILY omeprazole 40 mg capsule,delayed release(DR/EC) 40 mg PO DAILY lovastatin 40 mg Tablet 40 mg PO DAILY Hold Instructions: by pcp metoprolol succinate 100 mg Tablet Extended Release 24 Hr 100 mg PO DAILY calcium 500 mg Tablet 1,000 mg PO DAILY therapeutic multivitamin Tablet 1 tab PO DAILY aspirin 81 mg Tablet,Delayed Release (Dr/Ec) 81 mg PO DAILY levothyroxine 75 mcg Tablet 75 mcg PO DAILY metformin [Glucophage] 1,000 mg Tablet 1,000 mg PO BID glimepiride 4 mg Tablet 4 mg PO BID acyclovir 200 mg Capsule 200 mg PO TID PRN insulin lispro [Humalog KwikPen Insulin] 100 unit/mL Insulin Pen 2 - 8 unit SUBCUT AC Rx Instructions: TID FOR CORRECTION OF HIGH BG >150 insulin glargine 100 unit/mL Cartridge 50 unit SUBCUT HS Victoza 2-Thee 0.6 mg/0.1 mL (18 mg/3 mL) Pen Injector 1.2 mg SUBCUT DAILY Discharge Instructions Instructions: Sciatica (ED) Additional Instructions: As we discussed together we do need to help diminish the inflammation that is occurring around the sciatic nerve. Please take the prednisone as directed. Please make sure that if you continue the Tylenol and ibuprofen as prescribed by your primary care provider that you continue taking the omeprazole that you are prescribed. You can also take the prednisone with Tums. If you take these medications without your stomach acid medication it could cause an ulcer or irritation in your stomach. Please make sure to take all these medications with food. Please follow-up closely with the [facility] spine center for your scheduled appointment in April. Please continue to see physical therapy/chiropractor for continued management of the muscle strength surrounding your back and buttock. If you notice any worsening of your symptoms, or any new symptoms such as vomiting, diarrhea, fever, chills, shortness of breath, chest pain, numbness, weakness, or fainting , please return immediately to the emergency department for reevaluation. Please follow up with your primary care provider as soon as possible for reassessment and reevaluation. As always, it was a pleasure participating in your medical care today. Referrals: Erin Erickson [Primary Care Provider] - [facility] General Date/Time Provider Initiated Documentation: 03/13/24 14:24 . HPI Narrative: 73-year-old female with past medical history of type 2 diabetes, hypertension, hypothyroidism, high cholesterol, who presents today for evaluation of right buttock and sciatic nerve distribution pain. Patient states that for the last 2 to 3 months she has been having this.. She did already get an outpatient MRI which showed no evidence of cauda equina, and no emergent surgical etiology. The MRI was performed 15 days ago, and it did show mild foraminal and canal stenosis. No evidence of other concerning abnormality. Pain has continued. She has seen physical therapy/chiropractor without s ignificant improvement. She does have scheduled appointment at the [facility] spine center on April 27. She has been taking Tylenol and Motrin as prescribed by her primary care provider, she is also appropriately on omeprazole. She has tried methocarbamol without significant improvement. She has no other complaints at this time. Patient denies any saddle anesthesia, numbness or tingling in the groin, change in sensation when wiping. Patient denies any change in sensation during sexual intercourse, bowel or bladder incontinence, leakage, or retention. Patient denies any weakness in the lower extremities, atypical falls or imbalance. Related Data Home Medications Medication Instructions Recorded Confirmed acyclovir 200 mg capsule 200 mg PO TID PRN 01/29/21 11/24/23 aspirin 81 mg tablet,delayed 81 mg PO DAILY 01/29/21 11/24/23 release calcium 500 mg tablet 1,000 mg PO DAILY 01/29/21 11/24/23 glimepiride 4 mg tablet 4 mg PO BID 01/29/21 11/24/23 insulin glargine 100 unit/mL 50 unit subcut HS 01/29/21 11/24/23 subcutaneous cartridge insulin lispro 100 unit/mL 2 - 8 unit subcut AC 01/29/21 11/24/23 subcutaneous pen (Humalog KwikPen (U-100) Insulin) levothyroxine 75 mcg tablet 75 mcg PO DAILY 01/29/21 11/24/23 liraglutide 0.6 mg/0.1 mL (18 mg/3 1.2 mg subcut DAILY 01/29/21 11/24/23 mL) subcutaneous pen injector (Victoza 2-Thee) lovastatin 40 mg tablet 40 mg PO DAILY 01/29/21 11/24/23 metformin 1,000 mg tablet 1,000 mg PO BID 01/29/21 11/24/23 (Glucophage) metoprolol succinate 100 mg 100 mg PO DAILY 01/29/21 11/24/23 tablet,extended release 24 hr therapeutic multivitamin 1 tab PO DAILY 01/29/21 11/24/23 lisinopril 20 2 tab PO DAILY 07/09/23 11/24/23 mg-hydrochlorothiazide 12.5 mg tablet omeprazole 40 mg capsule,delayed 40 mg PO DAILY 07/09/23 11/24/23 release prednisone 50 mg tablet 50 mg PO DAILY #5 tabs 03/13/24 Previous Rx's Medication Instructions Recorded prednisone 50 mg tablet 50 mg PO DAILY #5 tabs 03/13/24 Allergies Allergy/AdvReac Type Severity Reaction Status Date / Time betamethasone Allergy Intermediate Skin Rash Unverified 11/24/23 16:49 [From Lotrisone] clotrimazole [From Lotrisone] Allergy Intermediate Skin Rash Unverified 11/24/23 16:49 General Stated Complaint: Nk/Back Pain SABAS: 4 Review of Systems All systems reviewed & are unremarkable except as noted in HPI and below Exam Narrative Exam Narrative: 1.Const: Well-nourished, Well-developed, appearing stated age 2.Eyes: PERRL, no conjunctival injection, and symmetrical lids. 3.ENT: Atraumatic external nose and ears. Moist MM. Neck: Symmetric, trachea midline, No thyromegaly. 4.CVS: +S1/S2, No murmurs or gallops. Peripheral pulses 2+ and equal in all extremities. Brisk capillary refill in all extremities. 5.RESP: Unlabored respiratory effort. Clear to auscultation bilaterally. No wheezes rales or rhonchi 6.GI: Soft, Nontender/Nondistended, No hepatosplenomegaly. No guarding or rebound. 7.MSK: Normocephalic/Atraumatic, Extremities w/o deformity or ttp No cyanosis or clubbing, Normal movement of all extremities No midline tenderness to palpation over the CTLS spine. Normal ROM in flexion, extension, side bend, and rotation. Patient has +5 out of 5 strength in the lower extremities in dorsiflexion and plantarflexion, knee flexion and extension, hip flexion and extension. Normal strength for dorsiflexion and plantar flexion of the great toe bilaterally. There is +2 over 2 dorsalis pedis pulses bilaterally. There is normal sensation to the skin with light touch at the foot, knee, and hip. Normal saddle sensation. Good sensation over the deep sural nerve area bilaterally. Rectal exam demonstrates good rectal tone with excellent tavo-rectal sensation. Reflexes are +2 over 4 in the patellar reflex bilaterally. +5 out of 5 strength in the medial, ulnar, radial nerve distribution bilaterally in the hands as well as intact light touch sensation to these dermatomes on the hands 8.Skin: Warm, Dry. No rashes or lesions. 9.Neuro: wrapper layer and examiner soft work II-XII grossly intact. Sensation grossly intact, no focal neurologic deficits. 10.Psych: (AAO) x3. Appropriate mood and affect Course Vital Signs Vital signs: Vital Signs Temperature 36.2 C L 03/13/24 14:09 Pulse 78 03/13/24 14:09 Respiratory Rate 18 03/13/24 14:09 Pulse Oximetry 99 03/13/24 14:09 Temperature 36.2 C L 03/13/24 14:09 Temperature Source Skin 03/13/24 14:09 Pulse 78 03/13/24 14:09 Respiratory Rate 18 03/13/24 14:09 Respiratory Effort Normal 03/13/24 14:12 Blood Pressure 248/99 H 03/13/24 14:13 Blood Pressure Position Sitting 03/13/24 14:09 Pulse Oximetry 99 03/13/24 14:09 Oxygen Delivery Method Room Air 03/13/24 14:09 Oxygen Flow Rate 0 03/13/24 14:09 Medical Decision Making 73-year-old female with past medical history of type 2 diabetes, hypertension, hypothyroidism, high cholesterol, who presents today for evaluation of right buttock and sciatic nerve distribution pain. Patient states that for the last 2 to 3 months she has been having this.. She did already get an outpatient MRI which showed no evidence of cauda equina, and no emergent surgical etiology. The MRI was performed 15 days ago, and it did show mild foraminal and canal stenosis. No evidence of other concerning abnormality. Pain has continued. She has seen physical therapy/chiropractor without significant improvement. She does have scheduled appointment at the [facility] spine center on April 27. She has been taking Tylenol and Motrin as prescribed by her primary care provider, she is also appropriately on omeprazole. She has tried methocarbamol without significant improvement. She has no other complaints at this time. Patient denies any saddle anesthesia, numbness or tingling in the groin, change in sensation when wiping. Patient denies any change in sensation during sexual intercourse, bowel or bladder incontinence, leakage, or retention. Patient denies any weakness in the lower extremities, atypical falls or imbalance. Exam demonstrates well-appearing female, no midline cervical thoracic or lumbar spine tenderness. Mild pain over the area of the piriformis muscle in the right lateral sacrum. Sensation intact throughout the entirety of the leg, +2 patellar reflexes, excellent dorsiflexion of the great toe. Normal saddle sensation, normal rectal tone, no diminished rectal tone. Symptoms appear clinically consistent with mild sciatica. Pulses are intact. Good capillary refill. At this time the patient does have the majority of her medical management certainly appropriately titrated however I do feel that she at this stage does require additional anti-inflammatory effects. We will start the patient on a short 5-day course of prednisone steroids. Will recommend continued physical therapy. Will recommend continued close follow-up with the spine center. With no evidence of cauda equina syndrome, vascular abnormality, or neurovascular deficit I do feel that the patient can be discharged home. I did recommend taking Tums with the steroid, and making sure that she not miss any of her antiacid medication while on the NSAIDs and steroid. I also did discuss with her the concern for stomach irritation and potential GI bleed which she understands. Discussed red flags which to return. I have extensively reviewed the treatment plan and discharge instructions with the patient. I have addressed all patient concerns at this time. The patient was made aware of what symptoms to monitor for that would warrant a return to the emergency department. Discussed the plan with the patient, they demonstrate verbal understanding and agreement with our assessment and plan at this time. The documentation in this chart was dictated using [employer] dictation software. Please excuse any dictation errors. Quality:SDOH Health Related Social Needs: No Data to Display PFSH All Active Problems Right sciatic nerve pain (Acute) Dysphagia (Acute) Medical History Diabetes mellitus Depression Hypothyroidism Hyperlipemia Hypertension Bilateral cataracts Surgical History Hx of cataract surgery [place] teeth extracted History of esophagogastroduodenoscopy (EGD) Hx of colonoscopy Hx of cholecystectomy Tubal Ligation, Colonoscopy - IV Sedation (12/19/16) Cholecystectomy Family History Mother CAD (coronary artery disease) Pacemaker Father Diabetes CAD (coronary artery disease) Sister CAD (coronary artery disease) Social History Smoking/Tobacco Use Status: Former Tobacco Use Quit Date: 11/16/03 Smoking risk assessment performed?: Yes Alcohol Intake: never Drug use: Never Substance use type: does not use Do you feel safe at home: Yes Do you feel safe in your relationship?: Yes
== END 2024-03-13 14:51 | disposition home or self-care (01) ==
PROVIDERS: Emergency Provider Student in an Organized Health Care Education/Training Program; PCP Family Medicine
DX: M54.31 Sciatica, right side (principal)
CPT/HCPCS: 99283

== ENCOUNTER 2024-06-29 10:28 | Outpatient (REF) | payer MEDICARE, SELFPAY ==
[2024-06-29 14:59] LABS: Abs Immature Grans 0.02 10^3/uL (0.0-0.06); Absolute Basophil Count 0.07 10^3/uL (0.0-0.2); Absolute Eosinophil Count 0.38 10^3/uL (0.0-0.7); Absolute Lymphocyte Count 1.66 10^3/uL (1.2-3.4); Absolute Monocyte Count 0.52 10^3/uL (0.1-0.8); Absolute Neutrophil Count 3.75 10^3/uL (1.2-6.7); Basophils % 1.1 %; Eosinophils % 5.9 %; HCT 33.8 % (36.0-46.0); HGB 11.4 g/dL (11.2-15.7); Immature Grans % 0.3 %; Lymphocytes % 25.9 %; MCHC 33.7 % (32.0-36.0); MCV 86 fL (80-95); MPV 10.6 fL (8.0-11.0); Monocytes % 8.1 %; Neutrophils % 58.7 %; Platelet Count 356 10^3/uL (130-400); RBC 3.93 10^6/uL (3.93-5.22); RDW-SD 40.5 fL
[2024-06-29 17:20] LABS: ALT 16 U/L (14-59); AST 12 U/L (15-37); Albumin 4.1 g/dL (3.4-5.0); Alkaline Phosphatase 52 U/L (46-116); Anion Gap 11.3 mmol/L (3-11); BUN 22 mg/dL (7-18); Bilirubin, Total 0.43 mg/dL (0.2-1.0); CO2 26.7 mmol/L (21.0-32.0); CREATININE 1.1 mg/dL (0.55-1.02); Calcium 9.1 mg/dL (8.5-10.1); Chloride 94 mmol/L (98-107); Estimated GFR 52.73 (mL/min/1.73m2); Folate 15.3 ng/mL (8.6-20.0); Glucose 117 mg/dL (74-106); Potassium 4.7 mmol/L (3.5-5.1); Sodium 132 mmol/L (136-145); Total Protein 6.7 g/dL (6.4-8.2); Vitamin B12 109 pg/mL (193-986)
== END 2024-06-29 10:29 | disposition home or self-care (01) ==
LOC: NCHCN 10:28
PROVIDERS: PCP Family Medicine; Visit Provider Family Medicine
DX: K13.0 Diseases of lips (principal)
CPT/HCPCS: 80053; 82607; 82746; 84443; 85025

== ENCOUNTER 2024-07-21 21:02 | Outpatient (REF) | payer MEDICARE, SELFPAY | END 2024-07-21 21:03 | disposition home or self-care (01) | LOC: NCHCN 21:02 | PROVIDERS: PCP Family Medicine; Visit Provider Nurse Practitioner Family | DX: N95.2 Postmenopausal atrophic vaginitis (principal) | CPT/HCPCS: 87480; 87510; 87660 ==

== ENCOUNTER 2024-10-31 15:29 | Outpatient (REF) | payer MEDICARE, SELFPAY ==
[2024-10-31 15:32] LABS: HGB 11.5 g/dL (11.2-15.7); MCH 28.3 pg (27.0-33.0); MCHC 32.9 % (32.0-36.0); MCV 86 fL (80-95); MPV 10.6 fL (8.0-11.0); Platelet Count 301 10^3/uL (130-400); RBC 4.07 10^6/uL (3.93-5.22); RDW 12.8 % (11.7-14.6); WBC 6.88 10^3/uL (4.4-10.8)
[2024-10-31 16:08] LABS: ALT 12 U/L (14-59); AST 13 U/L (15-37); Albumin 4.1 g/dL (3.4-5.0); Alkaline Phosphatase 58 U/L (46-116); BUN 19 mg/dL (7-18); Bilirubin, Total 0.44 mg/dL (0.2-1.0); CREATININE 1.3 mg/dL (0.55-1.02); Chloride 96 mmol/L (98-107); Estimated GFR 42.88 (mL/min/1.73m2); Glucose 112 mg/dL (74-106); Potassium 4.6 mmol/L (3.5-5.1); Sodium 133 mmol/L (136-145); Total Protein 6.8 g/dL (6.4-8.2)
== END 2024-10-31 15:30 | disposition home or self-care (01) ==
LOC: NCHCN 15:29
PROVIDERS: PCP Family Medicine; Visit Provider Family Medicine
DX: M48.062 Spinal stenosis, lumbar region with neurogenic claudication (principal); M48.061 Spinal stenosis, lumbar region without neurogenic claudication
CPT/HCPCS: 80053; 85027

== ENCOUNTER 2024-11-01 16:35 | Outpatient (REF) | payer MEDICARE, SELFPAY ==
--- NOTE | 2024-11-01 15:30 | LIPBX_PTH ---
PATIENT: Luis Miguel Bahena LOC: [facility] U#:[id number] AGE/SX: 74/F ROOM: RE11/01/[address]: Ed Dhillon MD : [id number] BED: DIS: 11/01/2024 SPEC #: [id number] RECD: 11/02/24 12:48 STATUS: TATUM REQ #: [id number] MICHAEL: 11/01/24 15:[address]: Ed Dhillon DEPT: Surgical Specimen RECD BY: Emma Barnes ENTERED: 11/02/24 12:48 SP TYPE: LIPBX OTHR DR: Erin Erickson Tissues: 1 - LIP BIOPSY/RESECTION Procedures: GROSS AND MICRO LEVEL 4 SPECIAL STAIN 1 Comments: [id number]
== END 2024-11-01 16:36 | disposition home or self-care (01) ==
LOC: LBN 16:35
PROVIDERS: PCP Family Medicine; Visit Provider Otolaryngology
DX: K13.0 Diseases of lips (principal)
CPT/HCPCS: 88305; 88312

== ENCOUNTER 2024-12-07 13:29 | Outpatient (REF) | payer MEDICARE, SELFPAY ==
[2024-12-07 15:33] LABS: Anion Gap 7.6 mmol/L (3-11); BUN 14 mg/dL (7-18); CO2 29.4 mmol/L (21.0-32.0); CREATININE 0.9 mg/dL (0.55-1.02); Calcium 8.7 mg/dL (8.5-10.1); Chloride 96 mmol/L (98-107); Estimated GFR 66.67 (mL/min/1.73m2); Glucose 156 mg/dL (74-106); Magnesium 0.9 mg/dL (1.8-2.4); Potassium 5.2 mmol/L (3.5-5.1); Sodium 133 mmol/L (136-145)
== END 2024-12-07 13:30 | disposition home or self-care (01) ==
LOC: NCHCN 13:29
PROVIDERS: PCP Family Medicine; Visit Provider Family Medicine
DX: E87.1 Hypo-osmolality and hyponatremia (principal); E83.42 Hypomagnesemia
CPT/HCPCS: 80048; 83735

== ENCOUNTER 2025-02-02 20:03 | Outpatient (REF) | payer MEDICARE, SELFPAY ==
[2025-02-02 20:49] LABS: HCT 32.1 % (36.0-46.0); HGB 10.4 g/dL (11.2-15.7); MCH 28.8 pg (27.0-33.0); MCHC 32.4 % (32.0-36.0); MCV 89 fL (80-95); MPV 11.2 fL (8.0-11.0); Platelet Count 304 10^3/uL (130-400); RBC 3.61 10^6/uL (3.93-5.22); RDW 14.2 % (11.7-14.6); RDW-SD 45.5 fL; WBC 6.82 10^3/uL (4.4-10.8)
[2025-02-02 21:11] LABS: ALT 23 U/L (14-59); AST 12 U/L (15-37); Albumin 3.7 g/dL (3.4-5.0); Alkaline Phosphatase 70 U/L (46-116); Anion Gap 8.1 mmol/L (3-11); BUN 13 mg/dL (7-18); Bilirubin, Total 0.3 mg/dL (0.2-1.0); CO2 27.9 mmol/L (21.0-32.0); CREATININE 1.3 mg/dL (0.55-1.02); Calcium 8.9 mg/dL (8.5-10.1); Chloride 102 mmol/L (98-107); Estimated GFR 42.88 (mL/min/1.73m2); Glucose 222 mg/dL (74-106); Magnesium 1.1 mg/dL (1.8-2.4); Potassium 5.3 mmol/L (3.5-5.1); Sodium 138 mmol/L (136-145); TSH 4.33 uIU/mL (0.36-3.74); Total Protein 6.5 g/dL (6.4-8.2)
[2025-02-03 17:19] LABS: T4, Free 1.2 ng/dL (0.8-2.2)
== END 2025-02-02 20:04 | disposition home or self-care (01) ==
LOC: NCHCN 20:03
PROVIDERS: PCP Family Medicine; Visit Provider Family Medicine
DX: I10 Essential (primary) hypertension (principal); E83.42 Hypomagnesemia; Z00.00 Encounter for general adult medical examination without abnormal findings; E03.9 Hypothyroidism, unspecified
CPT/HCPCS: 80053; 85027; 83735; 84439; 84443

== ENCOUNTER 2025-02-20 23:34 | Observation (INO) | payer MEDICARE, SELFPAY ==
--- NOTE | 2025-02-20 23:30 | RT.EKG_ITS ---
APPROVED REPORT Exam: Resting ECG Reason for Exam: nausea over 44 Patient Location: E HR:84 bpm ECG Measurements Heart Rate 84 AXIS MI 221 P 68 QRSd 92 QRS 54 QT 419 T 50 QTc 495 Conclusion Sinus rhythm...normal P axis, V-rate no ST segment or T wave abnormailties to suggest occlusive VT
[2025-02-20 23:35] VITALS: BP 260/108; PULSE 93; RESP 18; TEMP 33.8; O2SAT 96
[2025-02-20 23:39] VITALS: BP 260/108; PULSE 90; RESP 18; TEMP 33.4; O2SAT 95
--- NOTE | 2025-02-20 23:45 | DI.CT_ITS ---
Exam(s) CT HEAD WO EXAM: CT HEAD WO CLINICAL HISTORY: headache, vomiting, elevated BP. TECHNIQUE: Imaging Protocol: Axial computed tomography images with coronal and sagittal reformatted images were created and reviewed COMPARISON: No exams were available for comparison FINDINGS: Ventricles and Extra axial spaces: Normal in size and morphology for the patient's age. Hemorrhage: None. Cerebral parenchyma: No evidence of acute infarct or mass. small focal calcifications in the right co alejandra radiata and a few in the basal ganglia which appear chronic. Midline shift: None. Brainstem/Cerebellum: Normal. Calvarium: Normal. Visualized Paranasal sinuses:Clear. Mastoids: Clear. Soft Tissues: Unremarkable. ORBITS: Unremarkable. PITUITARY: Not enlarged. IMPRESSION: No acute intracranial process. RADIATION DOSE DELIVERED: 832.6mGy.cm Total DLP DATA REPOSITORY: All CT scans at this facility are submitted to the National Radiology Data Registry (NRDR) Dose Index Registry (DIR) with the [employer] ([employer]). RADIATION OPTIMIZATION: All CT scans at this facility use at least one of these dose optimization te chniques: automated exposure control; mA and/or kV adjustment per patient size (includes targeted exa ms where dose is matched to clinical indication); or iterative reconstruction.
--- NOTE | 2025-02-20 23:50 | W.ED.GENAD ---
Discharge Plan Disposition Patient Disposition: Admit to [facility] Condition: Serious Discharge Details Chief Complaint: Nausea/Vomit/Diar Clinical Impression: Hypertensive crisis, Vomiting, Hypotension due to drugs, Headache Primary Care Provider: Erin Erickson ED Provider: Elissa Lindsey Home Meds and New Rx's Prescriptions: No Action omeprazole 40 mg capsule,delayed release(DR/EC) 40 mg PO DAILY acyclovir 200 mg capsule 400 mg PO TID PRN diclofenac sodium 3 % gel 1 applic topical BID triamcinolone acetonide 0.1 % cream 1 applic topical BID metoprolol succinate 100 mg Tablet Extended Release 24 Hr 100 mg PO DAILY calcium 500 mg Tablet 1,000 mg PO DAILY therapeutic multivitamin Tablet 1 tab PO DAILY aspirin 81 mg Tablet,Delayed Release (Dr/Ec) 81 mg PO DAILY levothyroxine 75 mcg Tablet 75 mcg PO DAILY metformin [Glucophage] 1,000 mg Tablet 1,000 mg PO BID glimepiride 4 mg Tablet 4 mg PO BID insulin lispro [Humalog KwikPen Insulin] 100 unit/mL Insulin Pen 2 - 8 unit SUBCUT AC Rx Instructions: TID FOR CORRECTION OF HIGH BG >150 Trulicity 0.75 mg/0.5 mL pen injector 0.75 mg subcut QWEEK lisinopril 40 mg tablet 40 mg PO DAILY Patient Comments: TAKE ONE TABLET BY MOUTH EVERY DAY insulin glargine [Lantus Solostar U-100 Insulin] 100 unit/mL (3 mL) insulin pen 50 unit SUBCUT HS HPI General Mode of arrival: EMS. Date/Time Provider Initiated Documentation: 02/20/25 23:48. Limitations to Documentation: no limitations. Information obtained by: patient and EMS. HPI Narrative: 74yo F with hx HTN, DM, presenting via EMS for nausea and vomiting. [place] well yesterday. One hour prior to arrival began vomiting, 3-4 times over the last hour. Non bloody nonbilious. Had an episode of loose stool about 30 minutes ago, also non bloody. No abdominal pain. Has never had symptoms this bad before. Reports a headache which started after the vomiting and is worse with vomiting, described as 'mild' but gives a 7 when asked to rate severity on numeric scale. No numbness, tingling, or weakness. No vertigo or vision changes. Headache is dull, involves her whole head, is not worse with movement. Not maximal at onset. No recent falls or injuries, no head strikes. No sick contacts. She is otherwise in her usual state of health with no fevers, chills, rash, or other concerns. Related Data Home Medications ?Medication ?Instructions ?Recorded ?Confirmed aspirin 81 mg tablet,delayed 81 mg PO DAILY 01/29/21 02/20/25 release calcium 500 mg tablet 1,000 mg PO DAILY 01/29/21 02/20/25 glimepiride 4 mg tablet 4 mg PO BID 01/29/21 02/20/25 insulin lispro 100 unit/mL 2 - 8 unit subcut AC 01/29/21 02/20/25 subcutaneous pen (Humalog KwikPen (U-100) Insulin) levothyroxine 75 mcg tablet 75 mcg PO DAILY 01/29/21 02/20/25 metformin 1,000 mg tablet 1,000 mg PO BID 01/29/21 02/20/25 (Glucophage) metoprolol succinate 100 mg 100 mg PO DAILY 01/29/21 02/20/25 tablet,extended release 24 hr therapeutic multivitamin 1 tab PO DAILY 01/29/21 02/20/25 omeprazole 40 mg capsule,delayed 40 mg PO DAILY 07/09/23 02/20/25 release acyclovir 200 mg capsule 400 mg PO TID PRN 08/19/24 02/20/25 diclofenac sodium 3 % topical gel 1 applic topical BID 08/19/24 02/20/25 triamcinolone acetonide 0.1 % 1 applic topical BID 08/19/24 02/20/25 topical cream dulaglutide 0.75 mg/0.5 mL 0.75 mg subcut QWEEK 02/20/25 02/20/25 subcutaneous pen injector (Trulicity) lisinopril 40 mg tablet 40 mg PO DAILY 02/20/25 02/21/25 insulin glargine 100 unit/mL (3 50 unit subcut HS 02/21/25 02/21/25 mL) subcutaneous pen (Lantus Solostar U-100 Insulin) Allergies Allergy/AdvReac Type Severity Reaction Status Date / Time betamethasone (From Allergy Intermediate Skin Rash Unverified 02/20/25 23:49 Lotrisone) clotrimazole (From Lotrisone) Allergy Intermediate Skin Rash Unverified 02/20/25 23:49 General Stated Complaint: Nausea/Vomit/Diar SABAS: 3 Exam Narrative Exam Narrative: General: Alert, well nourished Head: Normocephalic, atraumatic Neck: Trachea midline, ?Neck supple. ENT: ?MMM.? No oropharygeal lesions or exudate. Cardiac: ?RRR, no murmurs appreciated Resp: No respiratory distress. CTAB. Abd: ?Soft, non-distended, nontender : ?No suprapubic tenderness. Extremities: ?No deformities.? No peripheral edema. Neuro: ? GCS 15.? PERRL.? EOMI.? Fluent speech, no dysarthria. Motor- 5/5 strength symmetric bilateral upper and lower extremities including shoulder abductors/adductors, elbow flexors/extensors, wrist flexors/extensors, finger abductors/adductors, hipflexors/extensors, knee flexors/extensors, ankle dorsiflexors and planter flexors. Sensation- ?Intact to light touch and symmetric multiple dermatomes including upper and lower extremities Coordination- No dysmetria on finger to nose Gait/station: ?Normal stance.? No truncal ataxia. Steady gait with equal normal steps CRANIAL NERVES: II: Pupils equal and reactive, III, IV, : EOM intact, no gaze preference or deviation, no nystagmus. V: normal sensation in V1, V2, and V3 segments bilaterally VII: no asymmetry, no nasolabial fold flattening VIII: normal hearing to speech IX, X: normal palatal elevation, no uvular deviation XI: 5/5 head turn and 5/5 shoulder shrug bilaterally XII: midline tongue protrusion Course Vital Signs Vital signs: Vital Signs Temperature 33.8 C L 02/20/25 23:35 Pulse 93 H 02/20/25 23:35 Respiratory Rate 18 02/20/25 23:35 Blood Pressure 260/108 H 02/20/25 23:35 Pulse Oximetry 96 02/20/25 23:35 Temperature 33.4 C L 02/20/25 23:39 Temperature Source Temporal Artery Scan 02/20/25 23:35 Pulse 90 02/20/25 23:39 Respiratory Rate 18 02/20/25 23:39 Blood Pressure 260/108 H 02/20/25 23:39 Pulse Oximetry 95 02/20/25 23:39 Oxygen Delivery Method Room Air 02/20/25 23:39 Oxygen Flow Rate 0 02/20/25 23:35 Pain Level 5 02/20/25 23:39 Medical Decision Making 74yo F with hx HTN, DM, presenting via EMS for nausea and vomiting x 1 hour with associated diarrhea and headache. Fingerstick blood glucose in normal range for EMS. Hypertensive on arrival, 260/108 (pt reports her typical blood pressure is in 190-200 range systolic). Normal neurologic exam. Onset of headache after vomiting and presence of diarrhea favor gastroenteritis, however constellation of symptoms in setting of markedly elevated blood pressure raises concern for intracranial hemmoraghe. History and exam not suggestive of DKA, mesenteric ischemia, bowel obstruction, cholecystitis, or other surgical intrabdominal process, aortic dissection, acute pulmonary edema, or hypertensive encephalopathy. Given 4mg IV zofran for vomiting and 1g IV acetaminophen for headache; will get CT head to evaluate for bleed -EKG on arrival SR, no ST segment or T wave abnormalities to suggest occlusive NH. Some baseline wander and motion artifact limit interp; will repeat when patient more comfortable. -Labs reviewed as below, CBC with leukocytosis to 18 (nonspecific), CMP overall reassuring with no actionable electrolyte abnormalities at Cr of 1.4 from 1.3 one month prior on [facility] record review, Mg low at 1.1 (2g IV replacement ordered), lipase not suggestive of pancreatitis, coags normal, initial troponin normal at 6 with one hour repeat of 7 (would not further pursue ACS) -CT independently reviewed; punctuate lesions on right concerning for potential bleed vs artifact/calcifications on my view, discussed with [facility]. [facility] radiology with finding of 'small hyperdensities in the right basal ganglia and segura radiata. Differential includes small calcifications versus hemmorrhages'. On reassessment patient reports headache has entirely resolved and nausea is much better. Neurologic exam remains normal. Appears very well. Repeat EKG NSR, borderline QTc, no ST segment or T wave abnormalities to suggest occlusive NH. Will avoid further QT prolonging medication. Repeat BP with systolic 205. Clinically remains less likely ICH however with possibility of bleed with potentially devastating consequences does warrant improved blood pressure control. Will start with 10mg of IV labatelol with target SBP <160. Strong response to labatelol with repeat BP 142/42; patient is symptomatic and lightheaded with this though remains alert and well appearing, no pallor or diaphoresis. Consulted [facility] neurosurgery; spoke with Tasneem HOBBS with plan for CTA, repeat noncon CT in 6 hours, mt garcia for seizure ppx. Recommended goal BP <140, however after discussion given that patient is symptomatic at 140 states <150 would be acceptable target. Started on low dose labatelol gtt for this purpose. -CTA independently reviewed and discussed with [facility] radiology Dr. Varela; no evident AVM or aneurysm however does have significant stenosis of R & L carotid siphons and distal left M1 segment; I reviewed this finding with patient and let her know that she will need to followup with her primary care doctor regarding this for medical management (statins, antihypertensive) vs referral for vascular intervention. On reassessment @ 0315 BP 136/38, patient sleeping. Overall acceptable, nursing aware to monitor closely and wean/titrate drip as needed. BP had increased back to ~170's-190's prior to being up-titrated to current pump settings. 0330 patient down-titrated off drip after being on slightly less than an hour in total as SBP decreased to low 100's. Patient awake, alert, feels 'weak all over' but no pre-syncope with this and no neurologic complaints. Remains well appearing with no further headache or nausea. Within 5-10 minutes BP increased to 132/52. Given aggressive level of response to labatelol and resulting labile pressures, will change to nicardipene if needed and start with half dose (2.5mg/hr). 0355 patient with SBP 90's within 1-2 minutes after starting nicardipene which was immediately dced. Remained persistently borderline hypotensive with SBP 90's-100's for approximately one hour after this. No bradycardia. Bedside US shows non-plethoric IVC, no abdominal aortic aneurysm, no free fluid in RUQ or LUQ or pelvis, no pericardial effusion. Hypotension most likely 2/t response to antihypertensives . Given 1L IVFB (I do not believe she is significantly volume depleted based on her exam and only 1 hour of N/V/D prior to arrival however certainly possible and may be contributing to labile pressures with antihypertensives. Within one hour BP improved to SBP 120's-130's. She continued to feel entirely throughout well with no headache, nausea, further vomiting, pain anywhere including abdomen/chest/back, and with no abdominal tenderness on exam. 0600 BP more stable SBP 100's-120's; some readings remain low however these are all when patient is laying on her right side with arm positioned under her (BP cuff on right currently). Taken to CT; will get scan for dissection as well as noncon head. Plan for 2nd liter IVFB on return from CT given double contrast load and normal pressure at this time. -CT head independently reviewed, lesions do not appear grossly increased in size on my view; radiology read as small calcifications and NO intracranial hemorrhage. -CTA CAP independently reviewed, no clear dissection on my view. Radiology as below, no dissection or acute intrabdominal process, significant atherosclerotic disease. Spoke again with [facility] neurosurgery, Dr. Cunha, who reviewed CT images and concurs with radiology read; no further interventions or followup indicated from their perspective. Did advise possible non-urgent neurology involvement for intracranial atherosclerotic disease. On reassessment patient is well appearing, normal neurologic exam, no further headache or N/V/D, BP remains quite low compared to initial presenting at 119/65. I question whether her initial presentation (WARD/N/V/HTN) represents hypertensive crisis vs simple gastroenteritis. Her symptoms did resolve entirely after 20% reduction in initial BP (as well as treatment with tylenol and zofran) and have not recurred after approximately seven hours despite no further anti-emetics. Given possibility of hypertensive crisis and dramatic BP swings here with medication warrants hospital admission for monitoring as medication continues to wear off and to determine need for further treatment. Discussed with [facility] hospitalist Dr. Dumas and patient accepted to medicine service for further workup and management. Awaiting admission orders and transfer to the floor. Imaging Data Radiologic Study: Imaging: CT Scan Radiologist's impression: CT non-con head: IMPRESSION: Small hyperdensities in the right basal ganglia and segura radiata. Differential includes small calcifications versus hemorrhages. Comparison with prior imaging if available can be helpful for stability assessment. Otherwise short-term follow-up is recommended. CTA head & neck: IMPRESSION: 1. Hypoplastic right A1 segment, congenital variant. 2. Approximately 80-90% stenosis of the right carotid siphon. 3. Approximately 80% stenosis of the left carotid siphon. 4. Approximately 60-70% stenosis of the distal left M1 segment. 5. Empty sella IMPRESSION: 1. Arteriosclerotic changes, as described above. 2. No large vessel occlusion. CT non-con head (repeat): MPRESSION: 1. No acute intracranial hemorrhage or infarct. 2. Small calcifications in the right basal ganglia and segura radiata, apparently related to small venous angioma. CTA dissection: IMPRESSION: 1. No evidence of thoracic or abdominal aortic aneurysm or dissection. 2. Extrinsic compression of the left subclavian vein as described above. Correlate for thoracic outlet syndrome. 3. The kidneys demonstrate small wedge-shaped hypoattenuating foci. These may represent renal cortical infarcts of uncertain chronicity. 4. Short-segment severe stenosis of the superior mesenteric artery origin. 5. Moderate stenosis of the celiac artery origin. 6. Severe stenosis of the left renal artery origin. 7. Possible hemodynamically significant stenosis of the right renal artery origin. 8. Bilateral renal cortical scarring. Quality:SDOH Health Related Social Needs: No Data to Display Critical Care Time Critical Care Time Critical Care Time: Yes Total Critical Care Time: 76 Attestation: Due to a high probability of clinically significant, life threatening deterioration, the patient required my highest level of preparedness to intervene emergently and I personally spent this critical care time directly and personally managing the patient. This critical care time included obtaining a history; examining the patient; pulse oximetry; ordering and review of studies; arranging urgent treatment with development of a management plan; evaluation of patient's response to treatment including approximately one hour at bedside managing blood pressure with nursing; frequent reassessment; and, discussions with other providers. This critical care time was performed to assess and manage the high probability of imminent, life-threatening deterioration that could result in multi-organ failure. It was exclusive of separately billable procedures and treating other patients? PFSH All Active Problems (Updated 02/21/25 @ 07:52 by Elissa Lindsey MD) Headache (Acute) Hypotension due to drugs (Acute) Vomiting (Acute) Hypertensive crisis (Acute) Dysgeusia (Acute) Cheilitis (Acute) Dysphagia (Acute) Medical History Diabetes mellitus Depression Hypothyroidism Hyperlipemia Hypertension Bilateral cataracts Surgical History Hx of cataract surgery [place] teeth extracted History of esophagogastroduodenoscopy (EGD) Hx of colonoscopy Hx of cholecystectomy Tubal Ligation, Colonoscopy - IV Sedation (12/19/16) Cholecystectomy Family History Mother CAD (coronary artery disease) Pacemaker Father Diabetes CAD (coronary artery disease) Sister CAD (coronary artery disease) Social History Smoking/Tobacco Use Status: Former Tobacco Use Quit Date: 11/16/03 Smoking risk assessment performed?: Yes Alcohol Intake: never Drug use: Never Substance use type: does not use Do you feel safe at home: Yes Do you feel safe in your relationship?: Yes POCUS Exam (ED) FAST Exam DATE OF EXAM: 02/21/25 TIME OF EXAM: 05:10 PROVIDER THAT PERFORMED THE STUDY: Elissa Lindsey IS THIS A REPEAT EXAM DURING THIS ENCOUNTER: no REASON FOR EXAM: Hypotension VISUALIZED STRUCTURES: Hepatorenal space, Pelvis, Pericardium, Perisplenic space and Other structure: aorta PERTINENT FINDINGS/IMPRESSION: no apparent free fluid and no pericardial effusion Limited Transthoracic Exam: Exam complete Limited Chest Exam: Exam complete Limited Abdominal Exam: Exam complete Limited Retroperitoneal Exam: Exam complete THOMAS Exam DATE OF EXAM: 02/21/25 TIME OF EXAM: 05:10 PROVIDER THAT PERFORMED THE STUDY: Elissa Lindsey
[2025-02-20] MEDS: Ondansetron 4 MG/2 ML VIAL (23:52)
[2025-02-20 23:55] LABS: Abs Immature Grans 0.12 10^3/uL (0.0-0.06); Basophils % 0.6 %; Eosinophils % 1.1 %; HCT 40.4 % (36.0-46.0); HGB 12.8 g/dL (11.2-15.7); Immature Grans % 0.6 %; Lymphocytes % 10.8 %; MCH 28.1 pg (27.0-33.0); MCHC 31.7 % (32.0-36.0); MCV 89 fL (80-95); MPV 10.1 fL (8.0-11.0); Monocytes % 5.5 %; Neutrophils % 81.4 %; Platelet Count 373 10^3/uL (130-400); RBC 4.56 10^6/uL (3.93-5.22); RDW 13.5 % (11.7-14.6); RDW-SD 43.9 fL; WBC 18.48 10^3/uL (4.4-10.8)
[2025-02-20] MEDS: ACETAMINOPHEN 1,000 MG/100 ML BAG 400 MG IVPB (23:55)
[2025-02-20 23:56] LABS: Absolute Basophil Count 0.11 10^3/uL (0.0-0.2); Absolute Monocyte Count 1.02 10^3/uL (0.1-0.8); Absolute Neutrophil Count 15.04 10^3/uL (1.2-6.7)
[2025-02-21] VITALS (122 sets, daily range): BP systolic 89–192; BP diastolic 16–81; PULSE 64–101; RESP 10–28; TEMP 35.5–36.9; O2SAT 94–100
--- NOTE | 2025-02-21 | DI.US_ITS ---
Exam(s) US RENAL EXAM: US RENAL CLINICAL HISTORY: severe HTN, bilateral renal art stenosis on CT. TECHNIQUE: Craven scale, color and spectral Doppler were used. COMPARISON: CT CT THORAX ABD/PEL CTA from 02/21/2025 FINDINGS: Right kidney: 8.7cm. Mildly lobulated contour. Echogenicity: Normal Hydronephrosis: No Cyst or mass: No Nephrolithiasis: No Left kidney: 8.3cm. Mildly lobulated contour. Echogenicity: Normal Hydronephrosis: No Cyst or mass: 7 millimeter cyst upper pole. Nephrolithiasis: No Bladder:Normal. Prevoid vol:312 cc Postvoid vol:8 cc IMPRESSION: Mildly lobulated renal contour could be congenital versus bilateral areas of scarring. Mild bilatera l renal atrophy. DATA REPOSITORY:
[2025-02-21 00:08] LABS: PTT Activated 23.7 sec (20.6-30.2); Prothrombin Time 9.7 sec (9.1-11.1)
[2025-02-21 00:14] LABS: ALT 20 U/L (14-59); AST 16 U/L (15-37); Albumin 4.2 g/dL (3.4-5.0); Alkaline Phosphatase 80 U/L (46-116); Anion Gap 11.8 mmol/L (3-11); BUN 23 mg/dL (7-18); Bilirubin, Total 0.3 mg/dL (0.2-1.0); CO2 25.2 mmol/L (21.0-32.0); CREATININE 1.4 mg/dL (0.55-1.02); Calcium 9.8 mg/dL (8.5-10.1); Chloride 98 mmol/L (98-107); Estimated GFR 39.23 (mL/min/1.73m2); Glucose 157 mg/dL (74-106); Magnesium 1.1 mg/dL (1.8-2.4); Potassium 3.9 mmol/L (3.5-5.1); Sodium 135 mmol/L (136-145); Total Protein 7.8 g/dL (6.4-8.2); Troponin I 6 ng/L (<or=51)
[2025-02-21 00:20] LABS: Lipase 120 U/L (<78)
--- NOTE | 2025-02-21 00:30 | RT.EKG_ITS ---
APPROVED REPORT Exam: Resting ECG Reason for Exam: vomiting Patient Location: E HR:74 bpm ECG Measurements Heart Rate 74 AXIS VT 185 P 65 QRSd 87 QRS 68 QT 442 T 95 QTc 492 Conclusion Sinus rhythm...normal P axis, V-rate 60- 99 Probable left atrial enlargement...P >50mS, <-0.10mV V1 no ST segment or T wave abnormailties to suggest occlusive DE
[2025-02-21] MEDS: MAGNESIUM SULFATE 2 GM/50 ML BAG IV_INF ×2 (00:34→09:52)
--- NOTE | 2025-02-21 00:35 | DI.VRAD_ITS ---
Addendum created by Smooth Rooney DO on 02/21/2025 12:38:10 AM EDT: THIS REPORT CONTAINS FINDINGS THAT MAY BE CRITICAL TO PATIENT CARE. The findings were verbally communicated via telephone conference with BARB DESIR at 12:38 AM EDT on 02/21/2025. The findings were acknowledged and understood. Initial report created on 02/21/2025 12:35:19 AM EDT: PROCEDURE INFORMATION: Exam: CT Head Without Contrast Exam date and time: 02/20/2025 11:58 PM Age: 74 years old Clinical indication: Other: Headache, vomiting, elevated BP TECHNIQUE: Imaging protocol: Computed tomography of the head without contrast. Radiation optimization: All CT scans at this facility use at least one of these dose optimization techniques: automated exposure control; mA and/or kV adjustment per patient size (includes targeted exams where dose is matched to clinical indication); or iterative reconstruction. COMPARISON: No relevant prior studies available. FINDINGS: Brain: Small hyperdensities in the right basal ganglia and segura radiata. Cerebral ventricles: No ventriculomegaly. Paranasal sinuses: Visualized sinuses are unremarkable. No fluid levels. Mastoid air cells: Visualized mastoid air cells are well aerated. Orbital cavities: Bilateral cataract surgery. Bones: Unremarkable. No acute fracture. Soft tissues: Unremarkable. IMPRESSION: Small hyperdensities in the right basal ganglia and segura radiata. Differential includes small calcifications versus hemorrhages. Comparison with prior imaging if available can be helpful for stability assessment. Otherwise short-term follow-up is recommended. Dictated and Authenticated by: Smooth Rooney MD. Orderin César Bowers MD
[2025-02-21] MEDS: Labetalol 100 MG/20 ML VIAL 10 MG IVP (00:49)
--- NOTE | 2025-02-21 01:15 | DI.CT_ITS ---
Exam(s) CT BRAIN NECK CTA EXAM: CT BRAIN NECK CTA CLINICAL HISTORY: WARD, N/V, HTN, ? ICH on noncon. TECHNIQUE: Imaging Protocol: Axial CT angiography was performed with multi-slice acquisition and mu lti-planar and MIP reconstructions. CONTRAST MATERIAL: Intravenous: Omnipaque 350 Contrast volume:70ml COMPARISON: CT CT HEAD WO from 02/20/2025 FINDINGS: CT Head W/O and W contrast: Ventricles and Extra axial spaces: Normal in size and morphology for the patient's age. Hemorrhage: None. Cerebral parenchyma: No evidence of acute infarct or mass. Small calcifications again noted in rig ht basal ganglia and segura radiata. Partially empty sella. Midline shift: None. Brainstem/Cerebellum: No acute findings.. Calvarium: Normal. Visualized Paranasal sinuses/Mastoids: Clear. Soft Tissues: Unremarkable. Enhancement: Normal. CTA Brain W: Internal Carotid Arteries: Petrous: Normal. Cavernous: Heavy calcification causing significant stenosis approximately 80 percent bilaterally. Cerebral: Normal. Middle Cerebral Arteries: Right: No aneurysm, occlusion or significant stenosis. Left: Narrowing of the distal portion, 60-70 percent. No aneurysm. Anterior Cerebral Arteries: Right: No aneurysm, occlusion or significant stenosis. Mildly hypoplastic A1 segment, and tonic vari ant. Left: No aneurysm, occlusion or significant stenosis. Posterior cerebral Arteries: Right: No aneurysm, occlusion or significant stenosis. Left: No aneurysm, occlusion or significant stenosis. Vertebral Arteries: Right: No aneurysm, occlusion or significant stenosis. Left: No aneurysm, occlusion or significant stenosis. Basilar Artery: No aneurysm, occlusion or significant stenosis. CTA Neck W: Common Carotid: Calcification at the origins bilateral. Right: Heavy calcification focally in the distal portion with proximate 60 percent stenosis. Scatter ed calcifications. No dissection, occlusion . Left: Scattered calcifications. No dissection, occlusion or significant stenosis. External Carotid: Right: No dissection, occlusion or significant stenosis. Left: No dissection, occlusion or significant stenosis. Internal Carotid: Right: Scattered calcifications. No dissection, occlusion or significant stenosis. Left: Calcification proximally. No dissection, occlusion or significant stenosis. Vertebral Artery: Right: No dissection, occlusion or significant stenosis. Left: No dissection, occlusion or significant stenosis. Lung Apices: No acute findings. Bones: No acute abnormality. Degenerative changes in the cervical spine. Soft Tissues: Normal. IMPRESSION: 1. CTA brain: The cavernous portions of the internal carotid arteries heavily calcified causing appro ximately 80 percent stenosis bilaterally. Stenosis of the distal left M1 segment of 60-70 [address]: there are few right chronic calcifications in the right segura radiata and right basal g anglia. No acute abnormality. 3. CTA neck: Multifocal calcifications. Approximate 60 percent stenosis at the distal right common c arotid artery. No other areas of significant stenosis. RADIATION DOSE DELIVERED: 1,183.14mGy.cm Total DLP DATA REPOSITORY: All CT scans at this facility are submitted to the National Radiology Data Registry (NRDR) Dose Index Registry (DIR) with the [employer] ([employer]). RADIATION OPTIMIZATION: All CT scans at this facility use at least one of these dose optimization te chniques: automated exposure control; mA and/or kV adjustment per patient size (includes targeted exa ms where dose is matched to clinical indication); or iterative reconstruction.
[2025-02-21 01:26] LABS: Troponin I 7 ng/L (<or=51)
[2025-02-21] MEDS: Omnipaque 350 MG/ML 100 ML BTL IJ ×2 (01:48→05:48)
[2025-02-21] MEDS: Normal Saline - Diluent 50 ML VIAL IJ ×2 (01:49→05:50)
[2025-02-21] MEDS: Normal Saline Flush 10 ML SYR IVP ×2 (01:49→05:51)
--- NOTE | 2025-02-21 02:44 | DI.VRAD_ITS ---
Addendum created by Dain Varela MD on 02/21/2025 2:47:08 AM EDT: Findings were discussed with BARB DESIR at 02/21/2025 2:46 AM EDT. Initial report created on 02/21/2025 2:43:50 AM EDT: PROCEDURE INFORMATION: Exam: CTA Head Without And With Contrast, Arteriography Exam date and time: 02/21/2025 1:49 AM Age: 74 years old Clinical indication: Stroke-like symptoms; Headache; Additional info: WARD, n/v, HTN, ? ich on noncon TECHNIQUE: Imaging protocol: Computed tomographic angiography of the head without and with contrast. Exam focused on the arteries. 3D rendering (Not supervised by radiologist): MIP and/or 3D reconstructed images were created by the technologist. Radiation optimization: All CT scans at this facility use at least one of these dose optimization techniques: automated exposure control; mA and/or kV adjustment per patient size (includes targeted exams where dose is matched to clinical indication); or iterative reconstruction. Contrast material: OMNIPAQUE 350; Contrast volume: 70 ml; Contrast route: INTRAVENOUS (IV); Other technique: STROKE PROTOCOL was implemented. COMPARISON: CT HEAD WO 02/20/2025 11:58 PM FINDINGS: ANTERIOR CIRCULATION: Right internal carotid artery: There is calcification of the right carotid siphon with approximately 80-90% stenosis of the lumen. Right middle cerebral artery: No occlusion or significant stenosis. No aneurysm. Right anterior cerebral artery: The right A1 segment is slightly hypoplastic. Left internal carotid artery: There is calcification of the left carotid siphon with approximately 80% stenosis of the lumen. Left middle cerebral artery: There is approximately 60-70% stenosis of the distal left M1 segment. Left anterior cerebral artery: No occlusion or significant stenosis. No aneurysm. POSTERIOR CIRCULATION: Right vertebral artery: No occlusion or significant stenosis. No aneurysm. Left vertebral artery: No occlusion or significant stenosis. No aneurysm. Basilar artery: No occlusion or significant stenosis. No aneurysm. Right posterior cerebral artery: No occlusion or significant stenosis. No aneurysm. Left posterior cerebral artery: No occlusion or significant stenosis. No aneurysm. HEAD: Brain: Empty sella is noted. Cerebral ventricles: Normal. No ventriculomegaly. Bones: Unremarkable. No acute fracture. Orbital cavities: The patient is status post bilateral intraocular lens replacement surgeries. Paranasal sinuses: Visualized sinuses are normal. No fluid levels. Mastoid air cells: Visualized mastoids are normal. No mastoid effusion. Soft tissues: Unremarkable. IMPRESSION: 1. Hypoplastic right A1 segment, congenital variant. 2. Approximately 80-90% stenosis of the right carotid siphon. 3. Approximately 80% stenosis of the left carotid siphon. 4. Approximately 60-70% stenosis of the distal left M1 segment. 5. Empty sella. ASSESSMENT: ASPECTS ([facility] Stroke Program Early CT Score) is 10. PROCEDURE INFORMATION: Exam: CTA Neck Without And With Contrast Exam date and time: 02/21/2025 1:49 AM Age: 74 years old Clinical indication: Stroke-like symptoms; Headache; Additional info: WARD, n/v, HTN, ? ich on noncon TECHNIQUE: Imaging protocol: Computed tomographic angiography of the neck without and with contrast. Exam focused on the cervical segments of the vasculature. 3D rendering (Not supervised by radiologist): MIP and/or 3D reconstructed images were created by the technologist. Radiation optimization: All CT scans at this facility use at least one of these dose optimization techniques: automated exposure control; mA and/or kV adjustment per patient size (includes targeted exams where dose is matched to clinical indication); or iterative reconstruction. Contrast material: OMNIPAQUE 350; Contrast volume: 70 ml; Contrast route: INTRAVENOUS (IV); COMPARISON: CT HEAD WO 02/20/2025 11:58 PM FINDINGS: Right common carotid artery: There is calcification of the mid right common carotid artery with no hemodynamically significant stenosis. There is calcification of the distal right common carotid artery with approximately 60% stenosis of the lumen. Right internal carotid artery: No stenosis of the extracranial segment. No dissection or occlusion. Right external carotid artery: No occlusion or stenosis of the origin. Left common carotid artery: There is calcification of the proximal left common carotid artery. There is calcification of the mid left common carotid artery. There is calcification of the distal left common carotid artery with no hemodynamically significant stenosis. Left internal carotid artery: There is calcification of the proximal left internal carotid artery with no hemodynamically significant stenosis. Left external carotid artery: No occlusion or stenosis of the origin. Right vertebral artery: No stenosis. No dissection or occlusion. Left vertebral artery: No stenosis. No dissection or occlusion. Brachiocephalic artery: There is calcification involving the proximal brachiocephalic artery and proximal left subclavian artery. Aorta: There is calcification of the aortic arch. Soft tissues: Normal. No significant soft tissue swelling. Bones/joints: There is narrowing of the intervertebral disc spaces at C5-C6-C7. There is fusion of the left articular facets at C2-C3. IMPRESSION: 1. Arteriosclerotic changes, as described above. 2. No large vessel occlusion. REFERENCES: NASCET CRITERIA. The degree of stenosis in the cervical segment of the internal carotid artery is based on NASCET criteria. Normal is no stenosis. Mild is less than 50% stenosis. Moderate is 50-69% stenosis. Severe is 70% to 99% stenosis. Total occlusion is no detectable patent lumen. Dictated and Authenticated by: Dain Varela MD. Orderin César Bowers MD
[2025-02-21] MEDS: levETIRAcetam 1,000 MG in Normal Saline 100 ML 400 MG IVPB (03:00)
[2025-02-21] MEDS: niCARdipine 25 MG in Normal Saline 240 ML IV (03:50)
[2025-02-21] MEDS: Normal Saline 1,000 ML 1000 ML IV ×2 (04:05→05:50)
--- NOTE | 2025-02-21 05:15 | DI.CT_ITS ---
Exam(s) CT THORAX ABD/PEL CTA EXAM: CT THORAX ABD/PEL CTA CLINICAL HISTORY: eval for aortic dissection. TECHNIQUE: Imaging Protocol: Axial CT angiography was performed with multi-slice acquisition and m ulti-planar and/or 3D reconstructions. CONTRAST MATERIAL: Intravenous: Omnipaque 350 Contrast volume:70 ml Oral: / no COMPARISON: CT UPPER ABD W/WO CONTRAST(P) from 04/25/2014 FINDINGS: CHEST: Pulmonary Arteries: Bolus timing set for evaluation for the aorta. No gross evidence of filling defe ct to suggest pulmonary emboli. Tracheobronchial tree: Patent where visualized. Mediastinum and Hoa: No dominant adenopathy or fluid collection. Pulmonary parenchyma: No consolidation or dominant measurable mass. Mild right upper lobe scarring. Dependent changes. Pleura: No effusion or pneumothorax. Heart: The heart is not dilated. Moderate coronary artery calcifications are seen. Aorta: Thoracic aorta non-dilated. No evidence of dissection. Mild atherosclerotic changes. Venous structures: There are multiple collaterals around the left shoulder and posterior chest wall. This appears to be secondary to narrowing of the subclavian vein passing between the clavicle and le ft 1st rib. Bones: Unremarkable for age. Tubes, Catheters, and Lines: None Vasculature: Abdomen: Celiac axis: Calcified plaque causing moderate stenosis. There may also be compression by the median arcuate ligament. Mesenteric arteries: Mixed plaque at the origin causing severe stenosis. Renal Arteries: Moderate to severe stenosis of both renal arteries at the origin secondary to calcifi c plaque. There is a single renal artery perfusing each kidney. Aorta: No evidence of occlusion or significant stenosis. No aneurysm or dissection. Moderate ath erosclerotic calcifications. Narrowing of the luminal diameter distally. Pelvis: Iliac Arteries: Heavily calcified proximally but no evidence of occlusion or significant stenosis. Common Femoral Arteries: [id number] plaque left greater than right no evidence of occlusion or significant stenosis. ABDOMEN: Liver: Normal density. No measurable mass. Portal, Superior Mesenteric, and Splenic Veins: Unremarkable. Gallbladder and Biliary Tract: Cholecystectomy. No biliary dilation. Pancreas: Normal density, no abnormal calcifications or inflammatory process. Spleen: Normal. Adrenals: No masses seen. Kidneys: Normal size and axis. Small multifocal areas of bilateral renal scarring. No radiodense st ones or obstructive uropathy. No masses seen. Bowel: No obstruction or bowel wall thickening. Appendix is not visualized. Peritoneal Cavity: No ascites, collection or mesenteric inflammatory response. Soft Tissues: Unremarkable. Bladder: Symmetric distention, no gross wall thickening. Reproductive Organs: Unremarkable as visualized. Lymph Nodes: Within normal limits. Bones: posterior fusion hardware at the L4-5 level. IMPRESSION: No evidence of aortic dissection. Some compression of the left subclavian vein between the 1st rib and clavicle. 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 Bilateral renal artery stenosis at the origin. Mild bilateral renal cortical scarring. RADIATION DOSE DELIVERED: 498.66mGy.cm Total DLP DATA REPOSITORY: All CT scans at this facility are submitted to the National Radiology Data Registry (NRDR) Dose Index Registry (DIR) with the [employer] ([employer]). RADIATION OPTIMIZATION: All CT scans at this facility use at least one of these dose optimization te chniques: automated exposure control; mA and/or kV adjustment per patient size (includes targeted exa ms where dose is matched to clinical indication); or iterative reconstruction.
--- NOTE | 2025-02-21 05:45 | DI.CT_ITS ---
Exam(s) CT HEAD WO EXAM: CT HEAD WO CLINICAL HISTORY: repeat, ? ICH. TECHNIQUE: Imaging Protocol: Axial computed tomography images with coronal and sagittal reformatted images were created and reviewed COMPARISON: CT CT BRAIN NECK CTA from 02/21/2025 FINDINGS: Ventricles and Extra axial spaces: Normal in size and morphology for the patient's age. Hemorrhage: None. Cerebral parenchyma: No evidence of acute infarct or mass. Calcifications again noted in right basa l ganglia and segura radiata. No evidence of hemorrhage. Midline shift: None. Brainstem/Cerebellum: Normal. Calvarium: Normal. Visualized Paranasal sinuses:Clear. Mastoids: Clear. Soft Tissues: Unremarkable. ORBITS: Unremarkable. PITUITARY: Not enlarged. IMPRESSION: No acute intracranial process. RADIATION DOSE DELIVERED: 763.12mGy.cm Total DLP DATA REPOSITORY: All CT scans at this facility are submitted to the National Radiology Data Registry (NRDR) Dose Index Registry (DIR) with the [employer] ([employer]). RADIATION OPTIMIZATION: All CT scans at this facility use at least one of these dose optimization te chniques: automated exposure control; mA and/or kV adjustment per patient size (includes targeted exa ms where dose is matched to clinical indication); or iterative reconstruction.
--- NOTE | 2025-02-21 06:45 | DI.VRAD_ITS ---
PROCEDURE INFORMATION: Exam: CT Head Without Contrast Exam date and time: 02/21/2025 5:47 AM Age: 74 years old Clinical indication: Other: Repeat CT; Repeat ? ich TECHNIQUE: Imaging protocol: Computed tomography of the head without contrast. Radiation optimization: All CT scans at this facility use at least one of these dose optimization techniques: automated exposure control; mA and/or kV adjustment per patient size (includes targeted exams where dose is matched to clinical indication); or iterative reconstruction. COMPARISON: CT BRAIN NECK CTA 02/21/2025 1:49 AM FINDINGS: Brain: Small radiodensities in the right basal ganglia and segura radiata, described on the previous study represent calcifications, apparently related to small venous angioma. No acute intracranial hemorrhage or infarct is identified. No mass effect. There is no midline shift. Cerebral ventricles: No ventriculomegaly. Paranasal sinuses: Visualized sinuses are unremarkable. No fluid levels. Mastoid air cells: Visualized mastoid air cells are well aerated. Bones: Unremarkable. No acute fracture. Soft tissues: Unremarkable. IMPRESSION: 1. No acute intracranial hemorrhage or infarct. 2. Small calcifications in the right basal ganglia and segura radiata, apparently related to small venous angioma. Dictated and Authenticated by: Dain Varela MD. Orderin César Bowers MD
--- NOTE | 2025-02-21 07:05 | NUR.NOTE ---
Called [facility] [place] for Dr Lindsey @ [phone] Called to [employer] @ [phone]
--- NOTE | 2025-02-21 07:18 | DI.VRAD_ITS ---
PROCEDURE INFORMATION: Exam: CTA Chest With Contrast CTA Abdomen and Pelvis With Contrast Exam date and time: 02/21/2025 6:03 AM Age: 74 years old Clinical indication: Other: Eval for dissection; Abdominal pain; Generalized; Prior surgery; Surgery date: 6+ months; Surgery type: Back surgery; Eval for aortic dissection TECHNIQUE: Imaging protocol: Computed tomographic angiography of the chest with contrast. Exam focused on the arteries. Computed tomographic angiography of the abdomen and pelvis with contrast. Exam focused on the arteries. 3D rendering (Not supervised by radiologist): MIP and/or 3D reconstructed images were created by the technologist. Radiation optimization: All CT scans at this facility use at least one of these dose optimization techniques: automated exposure control; mA and/or kV adjustment per patient size (includes targeted exams where dose is matched to clinical indication); or iterative reconstruction. Contrast material: OMNIPAQUE 350; Contrast volume: 70 ml; Contrast route: INTRAVENOUS (IV); COMPARISON: CT BRAIN NECK CTA 02/21/2025 1:49 AM FINDINGS: VASCULATURE: Pulmonary arteries: Limited evaluation of the lobar and segmental pulmonary arteries due to timing of the contrast bolus, which was optimized for evaluation of the aorta. No central pulmonary arterial filling defects identified. Aorta: No aortic aneurysm. No aortic dissection. Celiac trunk and mesenteric arteries: Patent. Short-segment severe stenosis of the superior mesenteric artery origin due to calcified and noncalcified plaque (image 39/series 6). Moderate stenosis of the celiac artery origin which may be due to a combination of calcified plaque and compression by the median arcuate ligament. Renal arteries: Patent bilateral single renal arteries. Severe stenosis of the left renal artery origin (image 24/series 4). Blooming artifact from a calcified plaque at the right renal artery origin limits evaluation. There may also be a hemodynamically significant stenosis of the right renal artery origin. Right iliac arteries: No occlusion or significant stenosis. Left iliac arteries: No occlusion or significant stenosis. Veins: Numerous enhancing collateral vessels are seen around the left shoulder , lower neck, and upper left posterior chest wall. The left subclavian vein is markedly narrowed as it passes between the clavicle and left anterior 1st rib (image 12/series 8). CHEST: Lungs: Unremarkable. No consolidation. No masses. Pleural spaces: Unremarkable. No pneumothorax. No pleural effusion. Heart: Unremarkable. No cardiomegaly. No pericardial effusion. Coronary arteries: Mild atherosclerotic calcifications of the coronary arteries. ABDOMEN AND PELVIS: Liver: No mass. Gallbladder and biliary ducts: The gallbladder is surgically absent. No biliary dilatation. Pancreas: Unremarkable. No mass. No ductal dilation. Spleen: Unremarkable. No splenomegaly. Adrenal glands: Unremarkable. No mass. Kidneys and ureters: The kidneys are ibzj-ww-toqaplghdr atrophic, qtns-wfnqcro-mzbc-right. The kidneys demonstrate renal cortical defects consistent with scarring, right greater than left. The kidneys also demonstrate small wedge-shaped hypoattenuating foci. Otherwise unremarkable. Stomach and bowel: Unremarkable. No obstruction. No mucosal thickening. Appendix: Appendix unable to be delineated. Intraperitoneal space: Unremarkable. No free air. No significant fluid collection. Urinary bladder: Unremarkable. No mass. Reproductive: Unremarkable as visualized. Lymph nodes: Unremarkable. No enlarged lymph nodes. Bones/joints: See Veins finding. Soft tissues: Unremarkable. IMPRESSION: 1. No evidence of thoracic or abdominal aortic aneurysm or dissection. 2. Extrinsic compression of the left subclavian vein as described above. Correlate for thoracic outlet syndrome. 3. The kidneys demonstrate small wedge-shaped hypoattenuating foci. These may represent renal cortical infarcts of uncertain chronicity. 4. Short-segment severe stenosis of the superior mesenteric artery origin. 5. Moderate stenosis of the celiac artery origin. 6. Severe stenosis of the left renal artery origin. 7. Possible hemodynamically significant stenosis of the right renal artery origin. 8. Bilateral renal cortical scarring. Dictated and Authenticated by: Marilia Saucedo MD. Orderin César Bowers MD
--- NOTE | 2025-02-21 08:09 | W.PM.HP.N ---
Date of service: 02/21/25 Time of Service: 08:09 Assessment and Plan Assessment and plan (1) Hypertensive crisis: Status: Acute Assessment and plan: Initial presentation c/w hypertensive crisis By time of admission this morning BP had stabilized off nicardipine drip Given severe HTN followed by hypotension, admitted for observation (2) Vomiting: Status: Acute Assessment and plan: It appears the trigger to this episode was food poisoning. Her symptoms appear to be resolved. monitor. (3) Hypertension: Assessment and plan: Reviewing her medical records [facility] and [facility], and per her history, her blood pressure has been poorly controlled since HCTZ stopped during her post-op course after spinal surgery at [facility] [place] in November 2024. HCTZ was at 50mg/day and was stopped due to hyponatremia. She has been on 40mg lisinopril (down from 80mg) since then continuously (though this is not clear on [facility] record). Will add low dose amlodipine to this along with the metoprolol. See JEYSON below. (4) Headache: Status: Acute Assessment and plan: A/w severe HTN. CT/CTA reassuring, neurosurgery reassured by f/u scan. symptoms much imrpoved. (5) Diabetes mellitus: Assessment and plan: Blood sugars have been recently poorly controlled. She is also experiencing lows since starting GLP-1. A1c today c/w improved control. Will cut glimeperide, give only daily given risk of hypoglycemia with this medicaiton. She may be able to come off this as she titrates up GLP-1 hold metormin for 48h after contrast CT (6) Hypothyroidism: Assessment and plan: Recent TSH wnl, not contributing to HTN (7) Renal artery stenosis, [place], bilateral: Status: Acute Assessment and plan: This is likely a trigger for labile HTN She has been tolerating ÓSCAR, which is appropriate first line therapy for this. K+ not high. Adding CCB as above I ordered renal doppler, but our radioloy unable to measure peak velocities. Will defer to PCP if she wants referral for vascular to consider surgical/stenting options, but if BP controlled on medications it is likely not worth it. (8) Spongiotic dermatitis: Status: Acute Assessment and plan: She was prescribed Cellcept, which can affect BP, but never took it. Mild clinically. Managing with skin care. (9) DVT prophylaxis: Status: Acute Assessment and plan: enoxaparin History of Present Illness History of Present Illness Chief Complaint: vomiting, headache Narrative: 74 yo F with history of hypertension and type 2 DM who presented to the emergency room overnight with sudden onset nausea and vomiting followed by headache and was found to be hypertensive in the 260s/100s. She was well before about 8pm when she started feeling nauseous and vomiting. She had several loose watery stools. No blood in stool or fever, no bad abdominal pain. She started getting a headache and called her daughter to bring her into the hospital a little after midnight. When she arrived her blood pressure was 260/108. CT was initially concerning for bleed, CTA head/neck done, repeat CT reassuring per read and neurosurgical consult from [facility]. This was a false positive. Her headache got a lot better when she was put on nicardipine drip and BP came down, but this was stopped by 4am when BP became low. BP improved with fluids and she has been off medication since. She went out to dinner last night at [employer] restaurant in [place] where she had scallops, thinks she may have had food poisoning. No blood or yellow in vomit. She is no longer nauseous and ate breakfast. She had several loose watery stools last night but has not had more since she has been here. No abdominal pain now, no discomfort or n/v after eating . No chest pain or SOB or palpitations. Not dizzy. She has a mild diffuse WARD still, but better than previously. She fever had voice changes, vision changes, or focal numbness or weakness. Review of Systems All systems reviewed & are unremarkable except as noted in HPI and below Integumentary/Breasts Skin/Breast: Reports pruritus (chronic) and Reports rash (chronic, not bad) PFSH All Active Problems DVT prophylaxis (Acute) Spongiotic dermatitis (Acute) with eosinophils, Dr. Jarquin Renal artery stenosis, tling[place] & ha[place], bilateral (Acute) Headache (Acute) Hypotension due to drugs (Acute) Vomiting (Acute) Hypertensive crisis (Acute) Dysgeusia (Acute) Cheilitis (Acute) Dysphagia (Acute) Medical History Diabetes mellitus Depression Hypothyroidism Hyperlipemia Hypertension Bilateral cataracts Surgical History Hx of cataract surgery [place] teeth extracted History of esophagogastroduodenoscopy (EGD) Hx of colonoscopy Hx of cholecystectomy Tubal Ligation, Colonoscopy - IV Sedation (12/19/16) Cholecystectomy Family History Mother CAD (coronary artery disease) Pacemaker Father Diabetes CAD (coronary artery disease) Sister CAD (coronary artery disease) Social History (Updated 02/21/25 @ 15:32 by Edwin Dumas) Smoking/Tobacco Use Status: Former Tobacco Use Quit Date: 11/16/03 Smoking risk assessment performed?: Yes Alcohol Intake: never Drug use: Never Substance use type: does not use Housing: house Do you feel safe at home: Yes Do you feel safe in your relationship?: Yes Additional Social history: lives in her own apartment in [facility] office in [place]. Daughter Maritza close. Meds Allergies and Home Medications Allergies Allergy/AdvReac Type Severity Reaction Status Date / Time betamethasone (From Allergy Intermediate Skin Rash Unverified 02/20/25 23:49 Lotrisone) clotrimazole (From Lotrisone) Allergy Intermediate Skin Rash Unverified 02/20/25 23:49 Home Medications ?Medication ?Instructions ?Recorded ?Confirmed ?Type aspirin 81 mg tablet,delayed 81 mg PO DAILY 01/29/21 02/20/25 History release calcium 500 mg tablet 1,000 mg PO DAILY 01/29/21 02/20/25 History glimepiride 4 mg tablet 4 mg PO BID 01/29/21 02/20/25 History insulin lispro 100 unit/mL 2 - 8 unit subcut AC 01/29/21 02/20/25 History subcutaneous pen (Humalog KwikPen (U-100) Insulin) levothyroxine 75 mcg tablet 75 mcg PO DAILY 01/29/21 02/20/25 History metformin 1,000 mg tablet 1,000 mg PO BID 01/29/21 02/20/25 History (Glucophage) metoprolol succinate 100 mg 100 mg PO DAILY 01/29/21 02/20/25 History tablet,extended release 24 hr therapeutic multivitamin 1 tab PO DAILY 01/29/21 02/20/25 History omeprazole 40 mg capsule,delayed 40 mg PO DAILY 07/09/23 02/20/25 History release acyclovir 200 mg capsule 400 mg PO TID PRN 08/19/24 02/20/25 History diclofenac sodium 3 % topical gel 1 applic topical BID 08/19/24 02/20/25 History triamcinolone acetonide 0.1 % 1 applic topical BID 08/19/24 02/20/25 History topical cream dulaglutide 0.75 mg/0.5 mL 0.75 mg subcut QWEEK 02/20/25 02/20/25 History subcutaneous pen injector (Trulicity) lisinopril 40 mg tablet 40 mg PO DAILY 02/20/25 02/21/25 History insulin glargine 100 unit/mL (3 50 unit subcut HS 02/21/25 02/21/25 History mL) subcutaneous pen (Lantus Solostar U-100 Insulin) Exam Narrative Exam Narrative: GEN: Alert and oriented x 4, pleasant and cooperative, gives linear history. No acute distress at rest. HEENT: Head atraumatic. Conjunctiva clear, no icterus. PEERL, EOMI. no rhinorrhea. MMM, OP benign. Neck is supple with no masses or lymphadenopathy, normal ROM, trachea midline LUNGS: CTAB with normal effort CV: RRR with no murmurs, gallops, or rubs. cap refill <2 sec ABD: active bowel sounds, soft, nontender and nondistended. No masses. EXT: no cyanosis, clubbing, or edema MSK: No joint redness or swelling NEURO: CN 2-12 grossly intact. Normal sensation to light touch. Normal movement of 4 extremities. Normal speech and coordination. No tremor SKIN: No rashes or open wounds except subtle red patches on forehead, perioral PSYCH: normal mood and affect, nl thought process Results Imaging Abdominal x-ray: report reviewed and image reviewed (NSR, nl axis, intervals okay but QTc 492, no ischemic ST-T changes) Imaging Studies: CT head 00:35: Small hyperdensities in the right basal ganglia and segura radiata. Differential includes small calcifications versus hemorrhages. Comparison with prior imaging if available can be helpful for stability assessment. Otherwise short-term follow-up is recommended. 5:35: No acute intracranial process. CTA head/neck:1. CTA brain: The cavernous portions of the internal carotid arteries heavily calcified causing approximately 80 percent stenosis bilaterally. Stenosis of the distal left M1 segment of 60-[address]: there are few right chronic calcifications in the right segura radiata and right basal ganglia. No acute abnormality. 3. CTA neck: Multifocal calcifications. Approximate 60 percent stenosis at the distal right common carotid artery. No other areas of significant stenosis. CT C/A/P: No evidence of aortic dissection. Some compression of the left subclavian vein between the 1st rib and clavicle. 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 Bilateral renal artery stenosis at the origin. Mild bilateral renal cortical scarring. Labs 02/20/25 23:43 02/20/25 23:43 Labs: Laboratory Results - last 24 hr 02/20/25 02/21/25 02/21/25 23:43 00:55 02:48 WBC 18.48 H RBC 4.56 Hgb 12.8 Hct 40.4 MCV 89 MCH 28.1 MCHC 31.7 L RDW 13.5 Plt Count 373 MPV 10.1 Immature Gran % 0.6 Neutrophils % 81.4 Lymphocytes % 10.8 Monocytes % 5.5 Eosinophils % 1.1 Basophils % 0.6 Nucleated RBC % 0.0 Absolute Neutrophils 15.04 H Absolute Lymphocytes 2.00 Absolute Monocytes 1.02 H Absolute Eosinophils 0.20 Absolute Basophils 0.11 PT 9.7 INR 1.0 APTT 23.7 Sodium 135 L Potassium 3.9 Chloride 98 Carbon Dioxide 25.2 Anion Gap 11.8 H BUN 23 H Creatinine 1.4 H Est GFR (CKD-EPI 2020) 39.23 Glucose 157 H Calcium 9.8 Magnesium 1.1 L Total Bilirubin 0.3 AST 16 ALT 20 Alkaline Phosphatase 80 Troponin I 6 7 Cancelled Total Protein 7.8 Albumin 4.2 Lipase 120 H Last Vital Signs Temp 35.5 C L 02/21/25 03:15 Pulse 76 02/21/25 07:21 Resp 20 02/21/25 07:21 BP 119/65 02/21/25 07:21 Pulse Ox 100 02/21/25 07:02 Time Spent Time spent with Patient: >75 minutes Time was spent: preparing to see the patient(eg.review tests), obtaining and/or reviewing separately otained hiistory, ordering medications,tests, procedures, referring, communicating with other health personal care home administrator, indepentently interpreting results, counseling the patient and care coordination
[2025-02-21 08:28] LABS: Hemoglobin A1C 6.8 % (<5.7)
--- NOTE | 2025-02-21 08:47 | W.PC.ACHO ---
Registration Status: Primary Language: Preferred Language: ED Information & Data Chief Complaint Nausea/Vomit/Diar 02/20/25 23:50 Triage Note PT states that she started 02/20/25 23:35 vomiting after eating scallops for dinner. PT states that she has eaten them previously and had no issues. Medical / Surgical History (Last Reviewed 11/01/24 @ 17:00 by Ed Dhillon MD) Diabetes mellitus Depression Hypothyroidism Hyperlipemia Hypertension Bilateral cataracts (Last Reviewed 11/01/24 @ 17:00 by Ed Dhillon MD) Hx of cataract surgery [place] teeth extracted History of esophagogastroduodenoscopy (EGD) Hx of colonoscopy Hx of cholecystectomy Tubal Ligation, Colonoscopy - IV Sedation (12/19/16) Cholecystectomy Most Recent Vital Signs Temperature 35.5 C L 02/21/25 03:15 Temperature Source Tympanic 02/21/25 03:15 Pulse 76 02/21/25 07:21 Pulse 80 02/21/25 07:21 Respiratory Rate 20 02/21/25 07:21 Blood Pressure 119/65 02/21/25 07:21 Blood Pressure Mean 86 02/21/25 07:21 Pulse Oximetry 100 02/21/25 07:02 Oxygen Delivery Method Room Air 02/20/25 23:39 Oxygen Flow Rate 0 02/20/25 23:35 Pain Level 5 02/20/25 23:39 Allergies betamethasone (From Lotrisone) Allergy (Intermediate, Unverified 02/20/25 23:49) Skin Rash clotrimazole (From Lotrisone) Allergy (Intermediate, Unverified 02/20/25 23:49) Skin Rash Active Medications Generic Name Dose Route Start Last Admin Trade Name Freq PRN Reason Stop Dose Admin Nicardipine HCl 25 mg/ Sodium 250 mls @ 0 mls/hr 02/21/25 03:45 02/21/25 06:10 Chloride IV Infused INFUSION PAULETTE Titration Protocol Sliding Scale Iohexol 100 ml 02/21/25 02:00 02/21/25 05:48 Omnipaque 350 Mg/Ml 100 Ml Btl IJ 03/23/25 23:59 70 ml DIRECTED PAULETTE Administration Labetalol HCl 10 mg 02/21/25 00:45 02/21/25 00:49 Labetalol 100 Mg/20 Ml Vial IVP 10 mg NOW PAULETTE Administration Sodium Chloride 0 ml 02/21/25 01:48 02/21/25 05:51 Normal Saline Flush 10 Ml Syr IVP 10 ml PRN PRN Administration Sodium Chloride 50 ml 02/21/25 02:00 02/21/25 05:50 Normal Saline - Diluent 50 Ml Vial IJ 50 ml .FOR DI USE PAULETTE Administration IV IV Catheter Type [Left Upper Saline Lock arm] IV Catheter Type [Left Saline Lock Antecubital] IV Catheter Gauge [Left Upper 20 arm] IV Catheter Gauge [Left 18 Antecubital] Diet Orders Category Date Time Status Diabetes Consistent CHO/Heart Healthy [DIET] Nutrition 02/21/25 Breakfast Active Diagnostics 02/21/25 02/21/25 02/20/25 Range/Units 02:48 00:55 23:43 WBC 18.48 H (4.4-10.8) 10^3/uL RBC 4.56 (3.93-5.22) 10^6/uL Hgb 12.8 (11.2-15.7) g/dL Hct 40.4 (36.0-46.0) % MCV 89 (80-95) fL MCH 28.1 (27.0-33.0) pg MCHC 31.7 L (32.0-36.0) % RDW 13.5 (11.7-14.6) % Plt Count 373 (130-400) 10^3/uL MPV 10.1 (8.0-11.0) fL Immature Gran % 0.6 % Neutrophils % 81.4 % Lymphocytes % 10.8 % Monocytes % 5.5 % Eosinophils % 1.1 % Basophils % 0.6 % Nucleated RBC % 0.0 (0.0-0.3) % Absolute Neutrophils 15.04 H (1.2-6.7) 10^3/uL Absolute Lymphocytes 2.00 (1.2-3.4) 10^3/uL Absolute Monocytes 1.02 H (0.1-0.8) 10^3/uL Absolute Eosinophils 0.20 (0.0-0.7) 10^3/uL Absolute Basophils 0.11 (0.0-0.2) 10^3/uL PT 9.7 (9.1-11.1) sec INR 1.0 (0.9-1.1) APTT 23.7 (20.6-30.2) sec Sodium 135 L (136-145) mmol/L Potassium 3.9 (3.5-5.1) mmol/L Chloride 98 (98-107) mmol/L Carbon Dioxide 25.2 (21.0-32.0) mmol/L Anion Gap 11.8 H (3-11) mmol/L BUN 23 H (7-18) mg/dL Creatinine 1.4 H (0.55-1.02) mg/dL Est GFR (CKD-EPI 2020) 39.23 (mL/min/1.73m2) Glucose 157 H (74-106) mg/dL Hemoglobin A1c 6.8 H (<5.7) % Calcium 9.8 (8.5-10.1) mg/dL Magnesium 1.1 L (1.8-2.4) mg/dL Total Bilirubin 0.3 (0.2-1.0) mg/dL AST 16 (15-37) U/L ALT 20 (14-59) U/L Alkaline Phosphatase 80 (46-116) U/L Troponin I Cancelled 7 6 (<or=51) ng/L Total Protein 7.8 (6.4-8.2) g/dL Albumin 4.2 (3.4-5.0) g/dL Lipase 120 H (<78) U/L [id number] Documentation Fingerstick Glucose Start: 02/20/25 23:49 Freq: .Stat Status: Active Protocol: Activity Type Activity Date Activity User E-sign Co-sign Detail Recorded Client Recorded Date Recorded By Document 02/21/25 07:11 RASHADG DAEMON(3) [id number] 02/21/25 07:12 BKG DAEMON(4) Intake and Output - 24 Hour Total 02/20/25 23:26 thru 02/21/25 07:32 Intake Total 2290.683 Balance 2290.683 Weight 54.1 kg Intake: IV 2290.683 Falls Risk Assessment History of Falls No History 02/20/25 23:39 Contributing Factors No Factors 02/20/25 23:39 Ambulatory Aids Independent 02/20/25 23:39 Tubes/Lines None 02/20/25 23:39 Gait Evaluation No gait disturbance 02/20/25 23:39 Cognition No cognitive impairment 02/20/25 23:39 Fall Total Score 0 02/20/25 23:39 Level of Risk Standard/Low Risk 02/20/25 23:39 Problems (Last Reviewed 11/01/24 @ 17:00 by Ed Dhillon MD) DVT prophylaxis (Acute) Spongiotic dermatitis (Acute) Renal artery stenosis, [place], bilateral (Acute) Headache (Acute) Hypotension due to drugs (Acute) Vomiting (Acute) Hypertensive crisis (Acute) Notes 02/21/25 07:05 Nursing Notes by Elissa Enriquez [place] [facility] [place] @ 0647 Called DI to [facility] @ 0647 Initialized on 02/21/25 07:05 - END OF NOTE v v v v v v v v v Sending and/or Receiving Nurses: Please use comment section below to note any information pertinent to the patient hand-off not included above. Information / Comments: Report received from:missael
[2025-02-21] MEDS: Omeprazole 20 MG CAPCR 40 MG PO (09:50)
[2025-02-21] MEDS: Aspirin E.C. 81 MG TABEC PO (09:50)
[2025-02-21] MEDS: Multivitamin TAB 1 TAB PO (09:50)
[2025-02-21] MEDS: Metoprolol CR 100 MG TABCR PO (09:50)
[2025-02-21] MEDS: amLODIPine 2.5 MG TAB PO (09:51)
[2025-02-21] MEDS: Levothyroxine 75 MCG TAB PO (09:51)
[2025-02-21] MEDS: Lisinopril 20 MG TAB 40 MG PO (09:51)
[2025-02-21] MEDS: Enoxaparin 30 MG/0.3 ML SYR SC (09:52)
[2025-02-21] MEDS: Calcium Carbonate 1.25 GM TAB PO (09:54)
--- NOTE | 2025-02-21 11:23 | W.INDIABCONS ---
Date of service: 02/21/25 Time of Service: 11:23 Diabetes Inpatient Consult Reason for Visit: diabetes consult re: diabetes mgt/education DESCRIPTION/ASSESSMENT: 74yo female with recent vomiting/diarrhea - being treated for hypertensive crisis. Hx of HTN, DMII with insulin use at home. Home meds include weekly GLP-1 (delaglutide), Glimepiride 4mg BID, 50u insulin glargine HS, and insulin lispro at meals on sliding scale to correct glucose >150. A1c was 6.8% yesterday with fasting glucose today at 157. Fingersticks in upper 100's to lower 200's so far this admission. Sodium lab slightly low yesterday at 135. BUN/Cr 23/1.4, magnesium at 1.1 yesterday (received for iv Mag for this - no lab yet today.) Total protein and albumin labs wnl yesterday. INTERVENTION: went up to offer education x 2 but pt busy with nursing and then resting with harp musician volunteer in room. No aggressive intervention planned. Discharge anticipated within 24 hours. PLAN: will approach again prior to discharge to offer outpatient education Time Spent in Nutritional Counseling and Treatment: 0
--- NOTE | 2025-02-21 11:38 | PHA.REVIEW2 ---
Pharmacy Admission Review Admission Clinical Review Admission Pharmacy Review: DVT prophylaxis (Acute) Spongiotic dermatitis (Acute) Renal artery stenosis, [place], bilateral (Acute) Headache (Acute) Hypotension due to drugs (Acute) Vomiting (Acute) Hypertensive crisis (Acute) betamethasone (From Lotrisone) Allergy (Intermediate, Unverified 02/20/25 23:49) Skin Rash clotrimazole (From Lotrisone) Allergy (Intermediate, Unverified 02/20/25 23:49) Skin Rash Resuscitation Status DNI Height 5 ft 2 in Weight 54.431 kg Pharmacy Admission Review Renal Dosing Renal Dosing: BUN 23 mg/dL (7-18) H 02/20/25 23:43 Creatinine 1.4 mg/dL (0.55-1.02) H 02/20/25 23:43 Medications needing adjustments: Intervened (CrCl 29.83 mL/min) List of meds needing interventions: changed enoxaparin dose from 40mg daily to 30mg daily Anticoagulation Anticoagulation: Hgb 12.8 g/dL (11.2-15.7) 02/20/25 23:43 Hct 40.4 % (36.0-46.0) 02/20/25 23:43 Plt Count 373 10^3/uL (130-400) 02/20/25 23:43 INR 1.0 (0.9-1.1) 02/20/25 23:43 Creatinine 1.4 mg/dL (0.55-1.02) H 02/20/25 23:43 DVT Prophylaxis: Intervened (changed dose due to CrCl < 30) Medications: Enoxaparin (30mg daily) Relevant Labs Relevant Labs: Sodium 135 mmol/L (136-145) L 02/20/25 23:43 Potassium 3.9 mmol/L (3.5-5.1) 02/20/25 23:43 Chloride 98 mmol/L (98-107) 02/20/25 23:43 Magnesium 1.1 mg/dL (1.8-2.4) L 02/20/25 23:43 Electrolytes, C-Reactive P, ESR: Reviewed (No new labs for today) DM Control DM Control: Glucose 157 mg/dL (74-106) H 02/20/25 23:43 Hemoglobin A1c 6.8 % (<5.7) H 02/20/25 23:43 Finger Stick Blood Glucose 213 1139 Finger Stick Blood Glucose 213 1128 Finger Stick Blood Glucose 227 1128 Finger Stick Blood Glucose 227 1002 Finger Stick Blood Glucose 227 0943 Finger Stick Blood Glucose 184 0943 Finger Stick Blood Glucose 184 0711 DM Control: Reviewed Insulin Dosing, Diabetic Medication: Has order for SS insulin, glargine 50 units at bedtime, Trulicity 0.75mg once weekly (changed to patients own order) and glimepiride 2mg BID Cardiac Review Cardiac Review: Troponin I 7 ng/L (<or=51) 02/21/25 02:48 Blood Pressure 125/60 1125 Blood Pressure 131/76 0902 Blood Pressure 131/76 0859 Blood Pressure 178/71 0842 Blood Pressure 161/78 0831 Blood Pressure 160/81 0821 Blood Pressure 167/69 0811 Blood Pressure 151/53 0801 Blood Pressure 127/42 0751 Blood Pressure 135/48 0740 Blood Pressure 125/49 0730 Blood Pressure 119/65 0721 Blood Pressure 122/35 0702 BP, HR, EF%: Reviewed (HR WNL) List meds needing interventions: Has order for amlodipine 2.5mg daily, metoprolol XL 100mg daily and nicardipine infusion (currently paused). Discontinue nicardipine order?? QTc Review QTc: Reviewed (492 from 02/21/25) IV to PO Switch IV Medications: Reviewed (nicardipine) Home Meds Home Med List reviewed: Intervened Relevent Home Meds Not ordered & why?: acyclovir (PRN), diclofenac gel and metformin (has order for SS insulin) Asked nursing to check with patient when their Trulicity is due. Per nurse patient uses on Fridays. I changed order to patients own and informed nurse that it will need to be brought in if patient is still here. Current Meds Current Medication Order Review: Reviewed
[2025-02-21] MEDS: Insulin Aspart 300 UNITS/3 ML PEN SC (11:39)
--- NOTE | 2025-02-21 16:28 | W.PM.DS.N ---
Date of service: 02/21/25 Time of Service: 16:28 DS: Diagnosis Discharge Diagnosis (1) Hypertensive crisis: Status: Acute (2) Vomiting: Status: Acute (3) Hypertension: (4) Headache: Status: Acute (5) Diabetes mellitus: (6) Hypothyroidism: (7) Renal artery stenosis, [place], bilateral: Status: Acute (8) Spongiotic dermatitis: Status: Acute (9) DVT prophylaxis: Status: Acute Discharge Plan Disposition Patient Disposition: Home Condition: Good Discharge Details Reason For Visit: Hypertensive Emergency Admit Date/Time: 02/21/25 07:51 Admit Provider: Edwin Dumas Attending Provider: Edwin Dumas [facility] Hospital Course: 74 yo F with history of hypertension and type 2 DM who presented to the emergency room overnight with sudden onset nausea and vomiting followed by headache and was found to be hypertensive in the 260s/100s. She also had several loose watery stools. She started getting a headache and called her daughter to bring her into the hospital a little after midnight. When she arrived her blood pressure was 260/108. CT was initially concerning for bleed, CTA head/neck done, repeat CT reassuring per read and neurosurgical consult from [facility]. This was a false positive. Her headache got a lot better when she was put on nicardipine drip and BP came down, but this was stopped by 4am when BP became low. BP stabilized and she was admitted to the floor for observation. Troponins and EKG were reassuring. After review of her records, her BP has been running high since HCTZ stopped post-op at [facility] in November due to hyponatremia. She has been taking her lisinopril and metoprolol. 2.5mg amlodipine was added to this regimen. While inpatient, she did not have other spikes in blood pressure or new symtpoms. She elected to go home later in the same day. Stenosis of bilateral renal arteries was noted on CT, which may be contributing to labile BP. Lisinopril is first line for this and was continued. Renal doppler was requested but radiology at [facility] does not do these. She may consider vascular surgery evaluation as an outpatient. Other vascular disease including carotid stenosis was noted, but none critical. Ongoing aspirin and high intensity statin therapy was recommended. Atorvastatin 40mg was prescribed. Her GI symptoms did not recur during her admission. SHe likely had food poisoning. Her A1c was 6.8%, which was an improvement. She started dulaglutide (Trulicity) 3 weeks ago. She described recent lows on her CGM, mostly at night, despite cutting glargine dose to 20u/day. It was recommended she cut the glimepiride to once daily from BID. As she titrates up her GLP-1, we discussed stopping the sulfonurea and/or the insulin. She had an advanced directive that said DNI, but she wanted a short term trial of intubation if necessary. COLST was redone and faxed to PCP office. Her daughter Maritza is DPOA-H and also signed this. Follow up: Blood sugar follow up, titrate medications Blood pressure follow up with new amlodipine Follow up tolerability of statin therapy, lipids Home Meds and New Rx's Prescriptions: New amlodipine 2.5 mg Tablet 2.5 mg PO DAILY Qty: 30 1RF atorvastatin 40 mg tablet 40 mg PO QHS Qty: 30 1RF Continued omeprazole 40 mg capsule,delayed release(DR/EC) 40 mg PO DAILY acyclovir 200 mg capsule 400 mg PO TID PRN triamcinolone acetonide 0.1 % cream 1 applic topical BID metoprolol succinate 100 mg Tablet Extended Release 24 Hr 100 mg PO DAILY calcium 500 mg Tablet 1,000 mg PO DAILY therapeutic multivitamin Tablet 1 tab PO DAILY aspirin 81 mg Tablet,Delayed Release (Dr/Ec) 81 mg PO DAILY levothyroxine 75 mcg Tablet 75 mcg PO DAILY insulin lispro [Humalog KwikPen Insulin] 100 unit/mL Insulin Pen 2 - 8 unit SUBCUT AC Rx Instructions: TID FOR CORRECTION OF HIGH BG >150 Trulicity 0.75 mg/0.5 mL pen injector 0.75 mg subcut QWEEK lisinopril 40 mg tablet 40 mg PO DAILY Patient Comments: TAKE ONE TABLET BY MOUTH EVERY DAY Changed insulin glargine [Lantus Solostar U-100 Insulin] 100 unit/mL (3 mL) insulin pen 20 unit SUBCUT HS Qty: 0 0RF glimepiride 4 mg Tablet 4 mg PO DAILY Qty: 0 0RF Held metformin [Glucophage] 1,000 mg Tablet 1,000 mg PO BID Hold Instructions: Resume on 02/23/25. hold due to contrast given with CT scan Discontinued diclofenac sodium 3 % gel 1 applic topical BID Discharge Instructions Instructions: High blood pressure emergencies Additional Instructions: Add the low dose amlodipine to your current medication for blood pressure Add the atorvastatin for the cholesterol, it will help shrink the plaques we saw in your arteries Stop the night time glimeperide for blood sugar. Your A1c was 6.8%, which is an improvement. You can probably cut this further when you increase the dose of Trulicity Follow up in 1-2 weeks with your primary Activity:: Activity as Tolerated Equipment/Supplies:: No Equipment Needed Diet:: Carb Counting Discharge Orders Discharge Orders: Discharge Order (Routine); Ordered 02/21/25 Ordered By: Edwin Dumas DS: Summary Time Spent with Patient providing and/or coordinating discharge services: Greater than 30 minutes Status at Discharge Functional status at discharge: independent ambulation Overall status at discharge: patient is back to baseline Mental Status: mental status grossly normal Speech and Movement: speech and movement normal Mood: congruent mood Affect: normal affect Quality:SDOH Health Related Social Needs: Health related social needs food insecurity (Z59.41), problems with daily activities (Z73.9) Exam Narrative Exam Narrative: GEN: Alert and oriented x 4, pleasant and cooperative, gives linear history. No acute distress at rest. HEENT: Head atraumatic. Conjunctiva clear, no icterus. PEERL, EOMI. no rhinorrhea. MMM, OP benign. Neck is supple with no masses or lymphadenopathy, normal ROM, trachea midline LUNGS: CTAB with normal effort CV: RRR with no murmurs, gallops, or rubs. cap refill <2 sec ABD: active bowel sounds, soft, nontender and nondistended. No masses. EXT: no cyanosis, clubbing, or edema MSK: No joint redness or swelling NEURO: CN 2-12 grossly intact. Normal sensation to light touch. Normal movement of 4 extremities. Normal speech and coordination. No tremor SKIN: No rashes or open wounds except subtle red patches on forehead, perioral PSYCH: normal mood and affect, nl thought process Psych Mental Status: mental status grossly normal Speech and Movement: speech and movement normal Mood: congruent mood Affect: normal affect DS: Data Vitals/I&O Vitals and I&O: Vital Signs Temperature 36.9 C 02/21/25 14:59 Temperature Source Temporal Artery Scan 02/21/25 14:59 Pulse 65 02/21/25 14:59 Pulse Rhythm Regular 02/21/25 09:02 Pulse 74 02/21/25 08:42 Respiratory Rate 18 02/21/25 14:59 Respiratory Effort Normal 02/21/25 09:02 Respiratory Depth Normal 02/21/25 09:02 Respiratory Pattern Normal 02/21/25 09:02 Blood Pressure 127/57 L 02/21/25 14:59 Blood Pressure Mean 105 02/21/25 08:42 Pulse Oximetry 99 02/21/25 14:59 Oxygen Delivery Method Room Air 02/21/25 14:59 Oxygen Flow Rate 0 02/21/25 14:59 Pain Level 0 02/21/25 09:02 Comment RN notified 02/21/25 08:59 Intake & Output 02/20/25 02/21/25 02/21/25 23:59 11:59 23:59 Intake Total 2560.683 / 2560.683 Output Total 200 / 200 Balance 2560.683 / 2360.683 -200 / 2360.683 Weight 54.1 kg 54.431 kg Intake: IV 2340.683 / 2340.683 Oral 220 / 220 Output: Urine 200 / 200 Other: Urine Color Yellow Urine Appearance Clear Clear Comment pt voided in toilet but missed hat, no issues reported Data Completed and Pending Labs on day of discharge: Labs from last 24 hours 02/21/25 02/21/25 02/20/25 02:48 00:55 23:43 WBC 18.48 H RBC 4.56 Hgb 12.8 Hct 40.4 MCV 89 MCH 28.1 MCHC 31.7 L RDW 13.5 Plt Count 373 MPV 10.1 Immature Gran % 0.6 Neutrophils % 81.4 Lymphocytes % 10.8 Monocytes % 5.5 Eosinophils % 1.1 Basophils % 0.6 Nucleated RBC % 0.0 Absolute Neutrophils 15.04 H Absolute Lymphocytes 2.00 Absolute Monocytes 1.02 H Absolute Eosinophils 0.20 Absolute Basophils 0.11 PT 9.7 INR 1.0 APTT 23.7 Sodium 135 L Potassium 3.9 Chloride 98 Carbon Dioxide 25.2 Anion Gap 11.8 H BUN 23 H Creatinine 1.4 H Est GFR (CKD-EPI 2020) 39.23 Glucose 157 H Hemoglobin A1c 6.8 H Calcium 9.8 Magnesium 1.1 L Total Bilirubin 0.3 AST 16 ALT 20 Alkaline Phosphatase 80 Troponin I Cancelled 7 6 Total Protein 7.8 Albumin 4.2 Lipase 120 H PFSH All Active Problems (Updated 02/21/25 @ 16:22 by Edwin Dumas) DVT prophylaxis (Acute) Spongiotic dermatitis (Acute) with eosinophils, Dr. Jarquin Renal artery stenosis, [place], bilateral (Acute) Headache (Acute) Hypotension due to drugs (Acute) Vomiting (Acute) Hypertensive crisis (Acute) Dysgeusia (Acute) Cheilitis (Acute) Dysphagia (Acute) Medical History Diabetes mellitus Depression Hypothyroidism Hyperlipemia Hypertension Bilateral cataracts Surgical History Hx of cataract surgery [place] teeth extracted History of esophagogastroduodenoscopy (EGD) Hx of colonoscopy Hx of cholecystectomy Tubal Ligation, Colonoscopy - IV Sedation (12/19/16) Cholecystectomy Family History Mother CAD (coronary artery disease) Pacemaker Father Diabetes CAD (coronary artery disease) Sister CAD (coronary artery disease) Social History (Updated 02/21/25 @ 15:32 by Edwin Dumas) Smoking/Tobacco Use Status: Former Tobacco Use Quit Date: 11/16/03 Smoking risk assessment performed?: Yes Alcohol Intake: never Drug use: Never Substance use type: does not use Housing: house Do you feel safe at home: Yes Do you feel safe in your relationship?: Yes Additional Social history: lives in her own apartment in [facility] office in [place]. Daughter Maritza linares. Time Spent with Patient Time Spent with Patient: <45 minutes (total time today admission and discharge 110 minutes) Time was spent: preparing to see the patient(eg.review tests), obtaining and/or reviewing separately otained hiistory, ordering medications,tests, procedures, referring, communicating with other health director of career resources, indepentently interpreting results, counseling the patient and care coordination
== END 2025-02-21 16:39 | disposition home or self-care (01) ==
LOC: ER 02-21 08:02 → MS 02-21 08:52
PROVIDERS: Admitting Provider Family Medicine; Emergency Provider Student in an Organized Health Care Education/Training Program; PCP Family Medicine; Visit Provider Family Medicine
DX: I16.9 Hypertensive crisis, unspecified (principal); R51.9 Headache, unspecified; I10 Essential (primary) hypertension; E03.9 Hypothyroidism, unspecified; I70.1 Atherosclerosis of renal artery; L30.8 Other specified dermatitis; E11.65 Type 2 diabetes mellitus with hyperglycemia; Z79.85 Long-term (current) use of injectable non-insulin antidiabetic drugs; I95.9 Hypotension, unspecified; R11.2 Nausea with vomiting, unspecified; F32.A Depression, unspecified; Z79.84 Long term (current) use of oral hypoglycemic drugs; Z79.4 Long term (current) use of insulin; Z79.82 Long term (current) use of aspirin
CPT/HCPCS: 00123; 36415; 36416; 70496; 70498; 71275; 76604; 76705; 76770; 76857; 80053; 82962; 83690; 93005; 93308; 96361; 96365; 96366; 96367; 96372; 96375; 99291; 70450; 74174; 83036; 83735; 84484; 85025; 85610; 85730; 93010; 99234; G0378; J0131; J1650; J1815; J1920; J1953; J2404; J2405; J3475; J3490

== ENCOUNTER 2025-03-15 00:47 | Outpatient (CLI) | payer MEDICARE, SELFPAY ==
--- NOTE | 2025-03-15 | DI.RAD_ITS ---
Exam(s) XR LUMBAR SPINE AP, LAT EXAM: XR LUMBAR SPINE AP, LAT CLINICAL HISTORY: S/P SURGERY,SPONDYLOLISTHESIS,L4-5,m43.16,synovial cyst,M71.38. TECHNIQUE: 2D digital imaging was performed of the lumbar spine. Three images were obtained. AP, l ateral and L5-S1 spot views were obtained. COMPARISON: CR XR LUMBAR SPINE COMPLETE from 01/28/2024 FINDINGS: BONES: Since the prior examination the patient has undergone posterior spinal surgery at L4 and L5. No fracture or destructive lesion. There are small osteophytes seen at the endplates in the vertebral bodies particularly from L3 through L5. No facet hypertrophy identified. DISKS: Intervertebral disc spaces are maintained. ALIGNMENT: Lumbar spinal alignment is within normal limits. No spondylolysis or spondylolisthesis. SOFT TISSUE: There are surgical clips in the right upper quadrant of the abdomen. Atherosclerotic ca lcification is present. IMPRESSION: 1. Interval posterior spinal surgery at L4-5. 2. Mild degenerative changes seen in the lumbar spine. 3. Extensive atherosclerosis. DATA REPOSITORY: RADIATION DOSE DELIVERED:
== END 2025-03-15 01:07 ==
LOC: DI 00:47
PROVIDERS: PCP Family Medicine; Visit Provider Orthopaedic Surgery Orthopaedic Surgery of the Spine
DX: M43.16 Spondylolisthesis, lumbar region (principal)
CPT/HCPCS: 72100

== ENCOUNTER 2025-04-04 10:20 | Observation (INO) | payer MEDICARE, SELFPAY ==
[2025-04-04] VITALS (38 sets, daily range): BP systolic 126–249; BP diastolic 63–147; PULSE 62–76; RESP 11–23; TEMP 36.3–37.1; O2SAT 96–100
--- NOTE | 2025-04-04 10:15 | RT.EKG_ITS ---
APPROVED REPORT Exam: Resting ECG Reason for Exam: HTN, dizzy Patient Location: E HR:68 bpm ECG Measurements Heart Rate 68 AXIS UT 190 P 67 QRSd 88 QRS 20 QT 401 T 29 QTc 427 Conclusion Sinus rhythm, rate 68 No interval abnormalities No STEMI T wave inversion lead III, new from prior
[2025-04-04 11:06] LABS: BE (Venous) 4 mmol/L (-2-3); HCO3 (Venous) 30 mmol/L (23-28); O2 Sat (Venous) 29 %; TCO2 (Venous) 27 mmol/L (24-29); pCO2 (Venous) 54 mmHg (41-51); pH (Venous) 7.35 (7.31-7.41); pO2 (Venous) 22 mmHg
[2025-04-04 11:09] LABS: Abs Immature Grans 0.03 10^3/uL (0.0-0.06); Absolute Basophil Count 0.05 10^3/uL (0.0-0.2); Absolute Eosinophil Count 0.22 10^3/uL (0.0-0.7); Absolute Lymphocyte Count 1.68 10^3/uL (1.2-3.4); Absolute Monocyte Count 0.56 10^3/uL (0.1-0.8); Absolute Neutrophil Count 3.03 10^3/uL (1.2-6.7); Basophils % 0.9 %; Eosinophils % 3.9 %; HCT 38.4 % (36.0-46.0); HGB 12.5 g/dL (11.2-15.7); Immature Grans % 0.5 %; Lymphocytes % 30.2 %; MCH 27.3 pg (27.0-33.0); MCHC 32.6 % (32.0-36.0); MCV 84 fL (80-95); MPV 9.6 fL (8.0-11.0); Monocytes % 10.1 %; Neutrophils % 54.4 %; Platelet Count 293 10^3/uL (130-400); RBC 4.58 10^6/uL (3.93-5.22); RDW 13.2 % (11.7-14.6); RDW-SD 39.9 fL; WBC 5.57 10^3/uL (4.4-10.8)
[2025-04-04] MEDS: ACETAMINOPHEN 1,000 MG/100 ML BTL 400 MG IVPB (11:11)
[2025-04-04] MEDS: Normal Saline 1,000 ML 1000 ML IV (11:11)
[2025-04-04] MEDS: Prochlorperazine 10 MG/2 ML VIAL 5 MG IVP (11:11)
[2025-04-04 11:18] LABS: Bilirubin Negative (Negative); Blood Negative (Negative); Clarity Clear (Clear); Glucose Negative (Negative); Ketones Negative (Negative); Leukocyte Esterase Negative (Negative); Nitrite Negative (Negative); Specific Gravity 1.015 (1.005-1.025); Urobilinogen 0.2 mg/dL (Up to 0.2)
[2025-04-04 11:24] LABS: Bacteria Few HPF (Negative); C & S Indicated? No; Casts Negative LPF (Negative); Crystals Negative HPF (Negative); Epithelial Cells Rare HPF (Negative); Mucus Trace (Negative); RBC 0-2 HPF (0-2); WBC 0-2 HPF (0-5)
[2025-04-04 11:32] LABS: ALT 16 U/L (14-59); AST 13 U/L (15-37); Albumin 4.1 g/dL (3.4-5.0); Alkaline Phosphatase 81 U/L (46-116); Anion Gap 7.7 mmol/L (3-11); BUN 19 mg/dL (7-18); Bilirubin, Total 0.6 mg/dL (0.2-1.0); CO2 29.3 mmol/L (21.0-32.0); CREATININE 1.2 mg/dL (0.55-1.02); Calcium 9.5 mg/dL (8.5-10.1); Chloride 91 mmol/L (98-107); Estimated GFR 47.21 (mL/min/1.73m2); Glucose 173 mg/dL (74-106); Magnesium 1.2 mg/dL (1.8-2.4); Potassium 4.3 mmol/L (3.5-5.1); Sodium 128 mmol/L (136-145); TSH (W/Ref FT4) 5.08 uIU/mL (0.36-3.74); Total Protein 7.7 g/dL (6.4-8.2); Troponin I 5 ng/L (<or=51)
--- NOTE | 2025-04-04 11:45 | DI.MRI_ITS ---
Exam(s) MR BRAIN WO EXAM: MR BRAIN WO CLINICAL HISTORY: dizzy, WARD, nausea every day TECHNIQUE: Multiplanar multisequence MRI of the brain was performed. COMPARISON: CT CT HEAD WO from 02/21/2025 FINDINGS: VENTRICLES AND EXTRA AXIAL SPACES: Normal in size and morphology for the patient's age. MIDLINE SHIFT: None. CEREBRAL PARENCHYMA: No focus of restricted diffusion to suggest acute infarct. No space-occupying le steve identified. Mild atrophy consistent with the patient's age. There are a few scattered foci of h igh signal in the white matter consistent with sequela of chronic microvascular disease. There are f ew small foci of susceptibility artifact on SWI images in the right basal ganglia region consistent w ith calcifications noted on prior CT. BRAINSTEM/CEREBELLUM: Normal. VISUALIZED PARANASAL SINUSES: Clear. MASTOIDS:Clear. Vasculature: Normal flow void. PITUITARY GLAND: Unremarkable. ORBITS: Unremarkable. IMPRESSION: No acute abnormality. DATA REPOSITORY:
[2025-04-04] MEDS: MAGNESIUM SULFATE 2 GM/50 ML BAG IV_INF (11:50)
[2025-04-04 11:51] LABS: FREE T4 1.16 ng/dL (0.76-1.46)
[2025-04-04 12:19] LABS: Troponin I 8 ng/L (<or=51)
--- NOTE | 2025-04-04 13:41 | NUR.NOTE ---
Appointment made for patient Thursday @ 1145 at [facility]. Nursing Note:
[2025-04-04 14:18] LABS: Troponin I 23 ng/L (<or=51)
[2025-04-04] MEDS: Magnesium Oxide 400 MG TAB 800 MG PO (14:38)
[2025-04-04] MEDS: Normal Saline 1,000 ML 125 ML IV (15:07)
[2025-04-04] MEDS: hydrALAZINE 20 MG/ML VIAL 5 MG IVP (15:08)
[2025-04-04] MEDS: amLODIPine 2.5 MG TAB PO (15:10)
--- NOTE | 2025-04-04 15:23 | W.ED.GENAD ---
Discharge Plan Disposition Patient Disposition: Home Condition: Stable Discharge Details Clinical Impression: Headache, Nausea & vomiting, Hypomagnesemia, Acute hyponatremia, Adverse drug effect Primary Care Provider: Erin Erickson ED Provider: Emma Connor Home Meds and New Rx's Prescriptions: New magnesium 250 mg tablet 250 mg PO TID Qty: 9 0RF prochlorperazine maleate [Compazine] 5 mg tablet 5 mg PO TID PRNQty: 12 0RF amlodipine 5 mg tablet 5 mg PO DAILY Qty: 10 0RF Continued omeprazole 40 mg capsule,delayed release(DR/EC) 40 mg PO DAILY acyclovir 200 mg capsule 400 mg PO TID PRN triamcinolone acetonide 0.1 % cream 1 applic topical BID metoprolol succinate 100 mg Tablet Extended Release 24 Hr 100 mg PO DAILY calcium 500 mg Tablet 1,000 mg PO DAILY therapeutic multivitamin Tablet 1 tab PO DAILY aspirin 81 mg Tablet,Delayed Release (Dr/Ec) 81 mg PO DAILY levothyroxine 75 mcg Tablet 75 mcg PO DAILY metformin [Glucophage] 1,000 mg Tablet 1,000 mg PO BID insulin lispro [Humalog KwikPen Insulin] 100 unit/mL Insulin Pen 2 - 8 unit SUBCUT AC Rx Instructions: TID FOR CORRECTION OF HIGH BG >150 lisinopril 40 mg tablet 40 mg PO DAILY Patient Comments: TAKE ONE TABLET BY MOUTH EVERY DAY atorvastatin 40 mg tablet 40 mg PO QHS Qty: 30 1RF insulin glargine [Lantus Solostar U-100 Insulin] 100 unit/mL (3 mL) insulin pen 20 unit SUBCUT HS Qty: 0 0RF glimepiride 4 mg Tablet 4 mg PO DAILY Qty: 0 0RF Discontinued Trulicity 0.75 mg/0.5 mL pen injector 0.75 mg subcut QWEEK amlodipine 2.5 mg Tablet 2.5 mg PO DAILY Qty: 30 1RF Patient Comments: pt states this medication doesnt help and she feels terrible taking it Discharge Instructions Instructions: High blood pressure in adults, Adverse Drug Reactions, Adult (DC), Hyponatremia, Hypomagnesemia Additional Instructions: Take your blood pressure daily, start on the amlodipine 5 mg and continue to take the lisinopril if your blood pressure is below 120, I would discontinue the amlodipine Take the Compazine first thing in the morning when you wake up to help with nausea and vomiting I suspect this is a side effect to the Trulicity so do not take your Thursday dose and you have an appointment at [address] Erickson I placed a vascular referral for carotid stenosis Your sodium and your magnesium are slightly low I recommend taking the next several days off of work and you can temporarily sprinkle a little bit of salt on your food for the next 3 days( dont worry about this affecting your blood pressure) small frequent, bland meals as tolerated Return to develop uncontrolled vomiting or persistent vomiting worsening headache, or should any new concerns arise Referrals: Erin Erickson [Primary Care Provider] - 3 days (04/07 appt) HPI General Date/Time Provider Initiated Documentation: 04/04/25 10:29. HPI Narrative: 74-year-old female with headache, fogginess, very elevated BP, and nausea for 4 weeks. Symptoms began abruptly with nausea and vomiting 3 days after starting Trulicity. Daily headaches progress to nausea and vomiting, no blood in vomitus, no fever or chills, no prior history of these symptoms. Previously on Victoza, effective but discontinued due to coverage issues, transitioned to Trulicity. Evaluated in ED for hypertensive emergency, mild improvement with BP lowering, discharged on amlodipine, taken until 3 days ago. Seeking reassessment due to persistent illness. No traumatic change in symptoms over the past week, no chest pain. Related Data Home Medications ?Medication ?Instructions ?Recorded ?Confirmed aspirin 81 mg tablet,delayed 81 mg PO DAILY 01/29/21 04/04/25 release calcium 500 mg tablet 1,000 mg PO DAILY 01/29/21 04/04/25 insulin lispro 100 unit/mL 2 - 8 unit subcut AC 01/29/21 04/04/25 subcutaneous pen (Humalog KwikPen (U-100) Insulin) levothyroxine 75 mcg tablet 75 mcg PO DAILY 01/29/21 04/04/25 metformin 1,000 mg tablet 1,000 mg PO BID 01/29/21 04/04/25 (Glucophage) metoprolol succinate 100 mg 100 mg PO DAILY 01/29/21 04/04/25 tablet,extended release 24 hr therapeutic multivitamin 1 tab PO DAILY 01/29/21 04/04/25 omeprazole 40 mg capsule,delayed 40 mg PO DAILY 07/09/23 04/04/25 release acyclovir 200 mg capsule 400 mg PO TID PRN 08/19/24 04/04/25 triamcinolone acetonide 0.1 % 1 applic topical BID 08/19/24 04/04/25 topical cream lisinopril 40 mg tablet 40 mg PO DAILY 02/20/25 04/04/25 atorvastatin 40 mg tablet 40 mg PO QHS #30 tabs 02/21/25 04/04/25 glimepiride 4 mg tablet 4 mg PO DAILY #0 tabs 02/21/25 04/04/25 insulin glargine 100 unit/mL (3 20 unit (0.2 mL) subcut HS #0 mL 02/21/25 04/04/25 mL) subcutaneous pen (Lantus Solostar U-100 Insulin) amlodipine 5 mg tablet 5 mg PO DAILY #10 tabs 04/04/25 magnesium 250 mg tablet 250 mg PO TID #9 tabs 04/04/25 prochlorperazine maleate 5 mg 5 mg PO TID PRN #12 tabs 04/04/25 tablet (Compazine) Previous Rx's ?Medication ?Instructions ?Recorded atorvastatin 40 mg tablet 40 mg PO QHS #30 tabs 02/21/25 glimepiride 4 mg tablet 4 mg PO DAILY #0 tabs 02/21/25 insulin glargine 100 unit/mL (3 20 unit (0.2 mL) subcut HS #0 mL 02/21/25 mL) subcutaneous pen (Lantus Solostar U-100 Insulin) amlodipine 5 mg tablet 5 mg PO DAILY #10 tabs 04/04/25 magnesium 250 mg tablet 250 mg PO TID #9 tabs 04/04/25 prochlorperazine maleate 5 mg 5 mg PO TID PRN #12 tabs 04/04/25 tablet (Compazine) Allergies Allergy/AdvReac Type Severity Reaction Status Date / Time betamethasone (From Allergy Intermediate Skin Rash Unverified 04/04/25 10:33 Lotrisone) clotrimazole (From Lotrisone) Allergy Intermediate Skin Rash Unverified 04/04/25 10:33 General Stated Complaint: Dizzy/Sync SABAS: 3 Exam Narrative Exam Narrative: General Appearance: Alert and oriented x4. Vital signs: Within normal limits. HEENT: Oropharynx patent, uvula midline. Pupils equal, round, reactive to light and accommodation. Respiratory: Within normal limits. Cardiovascular: Regular cardiac rate and rhythm. No JVD. Gastrointestinal: No abdominal or CVA tenderness. Neurological: GCS 15. Cranial nerves II-XII intact. Negative [id number]-weliza, heel mcclellan, and pronator drift tests. Psychiatric: No meningismus. Course Vital Signs Vital signs: Vital Signs Temperature 37.1 C 04/04/25 10:24 Pulse 72 04/04/25 10:24 Respiratory Rate 16 04/04/25 10:24 Blood Pressure 229/129 H 04/04/25 10:24 Pulse Oximetry 98 04/04/25 10:24 Temperature 37.1 C 04/04/25 10:24 Pulse 62 04/04/25 14:01 Pulse 63 04/04/25 14:10 Respiratory Rate 14 04/04/25 14:10 Respiratory Effort Normal, Non-Labored 04/04/25 10:47 Respiratory Depth Normal 04/04/25 10:47 Respiratory Pattern Normal 04/04/25 10:47 Blood Pressure 185/78 H 04/04/25 14:01 Blood Pressure Mean 115 04/04/25 14:01 Pulse Oximetry 98 04/04/25 13:31 Pain Level 8 04/04/25 10:24 Lab/Test Results Lab/Test Results: Laboratory Tests Range/Units 04/04/25 04/04/25 04/04/25 10:45 11:07 11:51 WBC (4.4-10.8) 10^3/uL 5.57 RBC (3.93-5.22) 10^6/uL 4.58 Hgb (11.2-15.7) g/dL 12.5 Hct (36.0-46.0) % 38.4 MCV (80-95) fL 84 MCH (27.0-33.0) pg 27.3 MCHC (32.0-36.0) % 32.6 RDW (11.7-14.6) % 13.2 Plt Count (130-400) 10^3/uL 293 MPV (8.0-11.0) fL 9.6 Immature Gran % % 0.5 Neutrophils % % 54.4 Lymphocytes % % 30.2 Monocytes % % 10.1 Eosinophils % % 3.9 Basophils % % 0.9 Nucleated RBC % (0.0-0.3) % 0.0 Absolute Neutrophils (1.2-6.7) 10^3/uL 3.03 Absolute Lymphocytes (1.2-3.4) 10^3/uL 1.68 Absolute Monocytes (0.1-0.8) 10^3/uL 0.56 Absolute Eosinophils (0.0-0.7) 10^3/uL 0.22 Absolute Basophils (0.0-0.2) 10^3/uL 0.05 VBG pH (7.31-7.41) 7.35 VBG pCO2 (41-51) mmHg 54 H VBG pO2 mmHg 22 VBG HCO3 (23-28) mmol/L 30 H VBG Total CO2 (24-29) mmol/L 27 VBG O2 Saturation % 29 VBG Base Excess (-2-3) mmol/L 4 H Sodium (136-145) mmol/L 128 L Potassium (3.5-5.1) mmol/L 4.3 Chloride (98-107) mmol/L 91 L Carbon Dioxide (21.0-32.0) mmol/L 29.3 Anion Gap (3-11) mmol/L 7.7 BUN (7-18) mg/dL 19 H Creatinine (0.55-1.02) mg/dL 1.2 H Est GFR (CKD-EPI 2020) (mL/min/1.73m2) 47.21 Glucose (74-106) mg/dL 173 H Calcium (8.5-10.1) mg/dL 9.5 Magnesium (1.8-2.4) mg/dL 1.2 L Total Bilirubin (0.2-1.0) mg/dL 0.6 AST (15-37) U/L 13 L ALT (14-59) U/L 16 Alkaline Phosphatase (46-116) U/L 81 Troponin I (<or=51) ng/L 5 8 Total Protein (6.4-8.2) g/dL 7.7 Albumin (3.4-5.0) g/dL 4.1 TSH (0.36-3.74) uIU/mL 5.08 H Free T4 (0.76-1.46) ng/dL 1.16 Urine Color (Yellow) Yellow Urine Clarity (Clear) Clear Urine pH (5-8) 7.0 Ur Specific [place] (1.005-1.025) 1.015 Urine Protein (Neg-Trace) mg/dL 100 H Urine Ketones (Negative) mg/dL Negative Urine Blood (Negative) Negative Urine Nitrite (Negative) Negative Urine Bilirubin (Negative) Negative Urine Urobilinogen (Up to 0.2) mg/dL 0.2 Ur Leukocyte Esterase (Negative) Negative Urine RBC (0-2) HPF 0-2 Urine WBC (0-5) HPF 0-2 Ur Epithelial Cells (Negative) HPF Rare Urine Crystals (Negative) HPF Negative Urine Bacteria (Negative) HPF Few Urine Casts (Negative) LPF Negative Urine Mucus (Negative) Trace Ur Culture Indicated? No Urine Glucose (Negative) mg/dL Negative Range/Units 04/04/25 13:46 WBC (4.4-10.8) 10^3/uL RBC (3.93-5.22) 10^6/uL Hgb (11.2-15.7) g/dL Hct (36.0-46.0) % MCV (80-95) fL MCH (27.0-33.0) pg MCHC (32.0-36.0) % RDW (11.7-14.6) % Plt Count (130-400) 10^3/uL MPV (8.0-11.0) fL Immature Gran % % Neutrophils % % Lymphocytes % % Monocytes % % Eosinophils % % Basophils % % Nucleated RBC % (0.0-0.3) % Absolute Neutrophils (1.2-6.7) 10^3/uL Absolute Lymphocytes (1.2-3.4) 10^3/uL Absolute Monocytes (0.1-0.8) 10^3/uL Absolute Eosinophils (0.0-0.7) 10^3/uL Absolute Basophils (0.0-0.2) 10^3/uL VBG pH (7.31-7.41) VBG pCO2 (41-51) mmHg VBG pO2 mmHg VBG HCO3 (23-28) mmol/L VBG Total CO2 (24-29) mmol/L VBG O2 Saturation % VBG Base Excess (-2-3) mmol/L Sodium (136-145) mmol/L Potassium (3.5-5.1) mmol/L Chloride (98-107) mmol/L Carbon Dioxide (21.0-32.0) mmol/L Anion Gap (3-11) mmol/L BUN (7-18) mg/dL Creatinine (0.55-1.02) mg/dL Est GFR (CKD-EPI 2020) (mL/min/1.73m2) Glucose (74-106) mg/dL Calcium (8.5-10.1) mg/dL Magnesium (1.8-2.4) mg/dL Total Bilirubin (0.2-1.0) mg/dL AST (15-37) U/L ALT (14-59) U/L Alkaline Phosphatase (46-116) U/L Troponin I (<or=51) ng/L 23 Total Protein (6.4-8.2) g/dL Albumin (3.4-5.0) g/dL TSH (0.36-3.74) uIU/mL Free T4 (0.76-1.46) ng/dL Urine Color (Yellow) Urine Clarity (Clear) Urine pH (5-8) Ur Specific [place] (1.005-1.025) Urine Protein (Neg-Trace) mg/dL Urine Ketones (Negative) mg/dL Urine Blood (Negative) Urine Nitrite (Negative) Urine Bilirubin (Negative) Urine Urobilinogen (Up to 0.2) mg/dL Ur Leukocyte Esterase (Negative) Urine RBC (0-2) HPF Urine WBC (0-5) HPF Ur Epithelial Cells (Negative) HPF Urine Crystals (Negative) HPF Urine Bacteria (Negative) HPF Urine Casts (Negative) LPF Urine Mucus (Negative) Ur Culture Indicated? Urine Glucose (Negative) mg/dL Medical Decision Making CBC and VBG show no acute abnormality, mild elevation in pCO2. Sodium 128, chloride 91, BUN 19, creatinine 1.2, glucose 173, magnesium 1.2. Troponins: -5, 8, and 23 at 300 hours sadi. EKG nonischemic, no significant QTc abnormality. Initial Assessment: 74-year-old female with headache, foggy feeling, very elevated blood pressure, nausea, and vomiting. Symptoms started abruptly 3 days after starting Trulicity. No chest pain, fever, or chills. Mild improvement in symptoms with blood pressure management previously. ED Course: - Diagnostic blood work ordered: CBC, VBG, sodium, chloride, BUN, creatinine, glucose, magnesium. - CBC: No acute abnormality. - VBG: Mild elevation in pCO2. - Sodium: Mildly low at 128. - Magnesium: Supplemented with 2 g IV and 800 mg p.o. - 1 L normal saline and 125 saline infusion. - EKG: Nonischemic, no significant QTc abnormality. - Troponins: Two initial troponins -5 and 8, third troponin at 3-hour sadi increased from 8 to 23. - Administered hydralazine 5-10 mg for BP 209/89. - No anticoagulation needed, low suspicion of type I NSTEMI. - Continued amlodipine 2.5 mg in OBs. - Case discussed with Dr. Gomez for admission. Final Assessment: Persistent elevated BP with elevated troponin, significant symptom improvement with treatment. Suspected Trulicity-related nausea and vomiting. Mild hyponatremia likely secondary to vomiting. Clinical Impression: - Hypertension - Nausea and vomiting - Headache - Mild hyponatremia Disposition: - Admission: For hypertension treatment, monitoring electrolytes, elevated blood glucose, and trending troponin levels. MDM Components Evaluation: - Number of Differential Diagnoses or Management Options: Hypertension, nausea and vomiting, headache, mild hyponatremia. - Amount and Complexity of Data Reviewed: CBC, VBG, sodium, chloride, BUN, creatinine, glucose, magnesium, EKG, troponins. - Risk of Complication and Morbidity or Mortality: Elevated blood pressure, elevated troponin, electrolyte abnormalities. Quality:SDOH Health Related Social Needs: Health related social needs food insecurity (Z59.41), problems with daily activities (Z73.9) PFSH All Active Problems (Updated 04/04/25 @ 13:52 by ANJEL Sebastian) Adverse drug effect (Acute) Acute hyponatremia (Acute) Hypomagnesemia (Acute) Nausea & vomiting (Acute) Headache (Acute) Spongiotic dermatitis (Acute) with eosinophils, Dr. Jarquin Renal artery stenosis, [place], bilateral (Acute) Dysgeusia (Acute) Cheilitis (Acute) Dysphagia (Acute) Medical History Diabetes mellitus Depression Hypothyroidism Hyperlipemia Hypertension Bilateral cataracts Surgical History Hx of cataract surgery [place] teeth extracted History of esophagogastroduodenoscopy (EGD) Hx of colonoscopy Hx of cholecystectomy Tubal Ligation, Colonoscopy - IV Sedation (12/19/16) Cholecystectomy Family History Mother CAD (coronary artery disease) Pacemaker Father Diabetes CAD (coronary artery disease) Sister CAD (coronary artery disease) Social History (Updated 02/21/25 @ 15:32 by Edwin Dumas) Smoking/Tobacco Use Status: Former Tobacco Use Quit Date: 11/16/03 Smoking risk assessment performed?: Yes Alcohol Intake: never Drug use: Never Substance use type: does not use Housing: house Do you feel safe at home: Yes Do you feel safe in your relationship?: Yes Additional Social history: lives in her own apartment in [facility] in [place]. Daughter Maritza linares.
--- NOTE | 2025-04-04 15:48 | DI.RAD_ITS ---
Exam(s) XR ABDOMEN FLAT PLATE EXAM: 2D digital imaging was performed. CLINICAL HISTORY: nausea and vomiting. COMPARISON: No exams were available for comparison TECHNIQUE: Supine views of the abdomen was performed. Two images were obtained. FINDINGS: LUNG BASES: Clear. BOWEL GAS PATTERN: Nondistended. There is a moderate amount of stool throughout the colon which may r eflect constipation. FREE AIR: None. CALCIFICATIONS: No radiopaque calcifications. Atherosclerotic calcification is present. OSSEOUS STRUCTURES: Normal for age. Posterior spinal surgery is seen at L4-5. OTHER FINDINGS: There are surgical clips seen in the right upper quadrant of the abdomen. IMPRESSION: Moderate amount of stool throughout the colon which may reflect constipation. DATA REPOSITORY: RADIATION DOSE DELIVERED:
--- NOTE | 2025-04-04 15:56 | W.PC.ACHO ---
Registration Status: Primary Language: Preferred Language: ED Information & Data Chief Complaint Dizzy/Sync 04/04/25 15:30 Triage Note WARD, confusion, very high bp, 04/04/25 10:24 nausea. no CP Medical / Surgical History (Last Reviewed 02/21/25 @ 15:31 by Edwin Dumas) Diabetes mellitus Depression Hypothyroidism Hyperlipemia Hypertension Bilateral cataracts (Last Reviewed 02/21/25 @ 15:31 by Edwin Dumas) Hx of cataract surgery [place] teeth extracted History of esophagogastroduodenoscopy (EGD) Hx of colonoscopy Hx of cholecystectomy Tubal Ligation, Colonoscopy - IV Sedation (12/19/16) Cholecystectomy Most Recent Vital Signs Temperature 37.1 C 04/04/25 10:24 Pulse 62 04/04/25 14:01 Pulse 63 04/04/25 14:10 Respiratory Rate 14 04/04/25 14:10 Respiratory Effort Normal, Non-Labored 04/04/25 10:47 Respiratory Depth Normal 04/04/25 10:47 Respiratory Pattern Normal 04/04/25 10:47 Blood Pressure 185/78 H 04/04/25 14:01 Blood Pressure Mean 115 04/04/25 14:01 Pulse Oximetry 98 04/04/25 13:31 Pain Level 8 04/04/25 10:24 Allergies betamethasone (From Lotrisone) Allergy (Intermediate, Unverified 04/04/25 10:33) Skin Rash clotrimazole (From Lotrisone) Allergy (Intermediate, Unverified 04/04/25 10:33) Skin Rash Active Medications Generic Name Dose Route Start Last Admin Trade Name Freq PRN Reason Stop Dose Admin Sodium Chloride 1,000 mls @ 125 mls/hr 04/04/25 15:00 04/04/25 15:07 Saline 1000ml Bag IV 125 mls/hr INFUSION PAULETTE Administration IV IV Catheter Type [Left Diffusics Antecubital] IV Catheter Gauge [Left 20 Antecubital] Diagnostics 04/04/25 04/04/25 04/04/25 Range/Units 13:46 11:51 11:07 WBC (4.4-10.8) 10^3/uL RBC (3.93-5.22) 10^6/uL Hgb (11.2-15.7) g/dL Hct (36.0-46.0) % MCV (80-95) fL MCH (27.0-33.0) pg MCHC (32.0-36.0) % RDW (11.7-14.6) % Plt Count (130-400) 10^3/uL MPV (8.0-11.0) fL Immature Gran % % Neutrophils % % Lymphocytes % % Monocytes % % Eosinophils % % Basophils % % Nucleated RBC % (0.0-0.3) % Absolute Neutrophils (1.2-6.7) 10^3/uL Absolute Lymphocytes (1.2-3.4) 10^3/uL Absolute Monocytes (0.1-0.8) 10^3/uL Absolute Eosinophils (0.0-0.7) 10^3/uL Absolute Basophils (0.0-0.2) 10^3/uL VBG pH (7.31-7.41) VBG pCO2 (41-51) mmHg VBG pO2 mmHg VBG HCO3 (23-28) mmol/L VBG Total CO2 (24-29) mmol/L VBG O2 Saturation % VBG Base Excess (-2-3) mmol/L Sodium (136-145) mmol/L Potassium (3.5-5.1) mmol/L Chloride (98-107) mmol/L Carbon Dioxide (21.0-32.0) mmol/L Anion Gap (3-11) mmol/L BUN (7-18) mg/dL Creatinine (0.55-1.02) mg/dL Est GFR (CKD-EPI 2020) (mL/min/1.73m2) Glucose (74-106) mg/dL Calcium (8.5-10.1) mg/dL Magnesium (1.8-2.4) mg/dL Total Bilirubin (0.2-1.0) mg/dL AST (15-37) U/L ALT (14-59) U/L Alkaline Phosphatase (46-116) U/L Troponin I 23 8 (<or=51) ng/L Total Protein (6.4-8.2) g/dL Albumin (3.4-5.0) g/dL TSH (0.36-3.74) uIU/mL Free T4 (0.76-1.46) ng/dL Urine Color Yellow (Yellow) Urine Clarity Clear (Clear) Urine pH 7.0 (5-8) Ur Specific [place] 1.015 (1.005-1.025) Urine Protein 100 H (Neg-Trace) mg/dL Urine Ketones Negative (Negative) mg/dL Urine Blood Negative (Negative) Urine Nitrite Negative (Negative) Urine Bilirubin Negative (Negative) Urine Urobilinogen 0.2 (Up to 0.2) mg/dL Ur Leukocyte Esterase Negative (Negative) Urine RBC 0-2 (0-2) HPF Urine WBC 0-2 (0-5) HPF Ur Epithelial Cells Rare (Negative) HPF Urine Crystals Negative (Negative) HPF Urine Bacteria Few (Negative) HPF Urine Casts Negative (Negative) LPF Urine Mucus Trace (Negative) Ur Culture Indicated? No Urine Glucose Negative (Negative) mg/dL 04/04/25 Range/Units 10:45 WBC 5.57 (4.4-10.8) 10^3/uL RBC 4.58 (3.93-5.22) 10^6/uL Hgb 12.5 (11.2-15.7) g/dL Hct 38.4 (36.0-46.0) % MCV 84 (80-95) fL MCH 27.3 (27.0-33.0) pg MCHC 32.6 (32.0-36.0) % RDW 13.2 (11.7-14.6) % Plt Count 293 (130-400) 10^3/uL MPV 9.6 (8.0-11.0) fL Immature Gran % 0.5 % Neutrophils % 54.4 % Lymphocytes % 30.2 % Monocytes % 10.1 % Eosinophils % 3.9 % Basophils % 0.9 % Nucleated RBC % 0.0 (0.0-0.3) % Absolute Neutrophils 3.03 (1.2-6.7) 10^3/uL Absolute Lymphocytes 1.68 (1.2-3.4) 10^3/uL Absolute Monocytes 0.56 (0.1-0.8) 10^3/uL Absolute Eosinophils 0.22 (0.0-0.7) 10^3/uL Absolute Basophils 0.05 (0.0-0.2) 10^3/uL VBG pH 7.35 (7.31-7.41) VBG pCO2 54 H (41-51) mmHg VBG pO2 22 mmHg VBG HCO3 30 H (23-28) mmol/L VBG Total CO2 27 (24-29) mmol/L VBG O2 Saturation 29 % VBG Base Excess 4 H (-2-3) mmol/L Sodium 128 L (136-145) mmol/L Potassium 4.3 (3.5-5.1) mmol/L Chloride 91 L (98-107) mmol/L Carbon Dioxide 29.3 (21.0-32.0) mmol/L Anion Gap 7.7 (3-11) mmol/L BUN 19 H (7-18) mg/dL Creatinine 1.2 H (0.55-1.02) mg/dL Est GFR (CKD-EPI 2020) 47.21 (mL/min/1.73m2) Glucose 173 H (74-106) mg/dL Calcium 9.5 (8.5-10.1) mg/dL Magnesium 1.2 L (1.8-2.4) mg/dL Total Bilirubin 0.6 (0.2-1.0) mg/dL AST 13 L (15-37) U/L ALT 16 (14-59) U/L Alkaline Phosphatase 81 (46-116) U/L Troponin I 5 (<or=51) ng/L Total Protein 7.7 (6.4-8.2) g/dL Albumin 4.1 (3.4-5.0) g/dL TSH 5.08 H (0.36-3.74) uIU/mL Free T4 1.16 (0.76-1.46) ng/dL Urine Color (Yellow) Urine Clarity (Clear) Urine pH (5-8) Ur Specific [place] (1.005-1.025) Urine Protein (Neg-Trace) mg/dL Urine Ketones (Negative) mg/dL Urine Blood (Negative) Urine Nitrite (Negative) Urine Bilirubin (Negative) Urine Urobilinogen (Up to 0.2) mg/dL Ur Leukocyte Esterase (Negative) Urine RBC (0-2) HPF Urine WBC (0-5) HPF Ur Epithelial Cells (Negative) HPF Urine Crystals (Negative) HPF Urine Bacteria (Negative) HPF Urine Casts (Negative) LPF Urine Mucus (Negative) Ur Culture Indicated? Urine Glucose (Negative) mg/dL Intake and Output - 24 Hour Total 04/04/25 10:20 thru 04/04/25 14:15 Intake Total 1150 Balance 1150 Weight 54.431 kg Intake: IV 1150 Falls Risk Assessment History of Falls No History 04/04/25 10:47 Contributing Factors No Factors 04/04/25 10:47 Ambulatory Aids Independent 04/04/25 10:47 Tubes/Lines None 04/04/25 10:47 Gait Evaluation No gait disturbance 04/04/25 10:47 Cognition No cognitive impairment 04/04/25 10:47 Fall Total Score 0 04/04/25 10:47 Level of Risk Standard/Low Risk 04/04/25 10:47 Notes 04/04/25 13:41 Nursing Notes by Erlinda Martino Appointment made for patient Thursday @ 1145 at [facility]. Nursing Note: Initialized on 04/04/25 13:41 - END OF NOTE v v v v v v v v v Sending and/or Receiving Nurses: Please use comment section below to note any information pertinent to the patient hand-off not included above. Information / Comments: Spoke with Jina ED RN for report. Pt came to ED for very high BP, nausea and headache. On arrival pt's BP was 220/120. Pt was given Hydralazine and amlodipine in ED which has helped BP come down some. Recent check of BP was 185/78. Pt was going to be dc'd home with medication management but her third trop bumped significantly from second check so pt was admitted for further observation. Pt was given a 1L bolus of NS and now has NS running at 150/hr. Pt had Mg repleated with 2mg IV and 800 mg of po. Pt is DMII and last BG check was 173. IV to L AC. Reported that pt is ambulatory with steady gait. EKG was wnl and on telemetry she has been running NSR. Report received from:
--- NOTE | 2025-04-04 17:06 | HPE_ITS ---
Date of service: 04/04/25 Time of Service: 17:06 Assessment and Plan Assessment and plan (1) Hypertensive crisis: Status: Acute Assessment and plan: Patient given hydralyzine in ED for BP 209/78 Given recent admission in February for hypertensive crisis (on nicardipine drip), admitted for observation (2) Vomiting: Status: Acute Assessment and plan: suspect secondary to GLP 1 - this has been stopped (3) Hypertension: Assessment and plan: Per records and patient her blood pressure has been poorly controlled since HCTZ stopped during her post-op course after spinal surgery at [facility] in November 2024. HCTZ was at 50mg/day and was stopped due to hyponatremia. Continues to take amlodipine and metoprolol (4) Diabetes mellitus: Assessment and plan: Glucose 176 hold metormin SSI FS AC HS; continue home basal insulin (5) Hypothyroidism: Assessment and plan: TSH 5.08 not contributing to HTN PCP to follow up (6) Spongiotic dermatitis: Status: Acute Assessment and plan: Mild clinically. Managing with skin care. (7) Hypomagnesemia: Status: Acute Assessment and plan: 1.2 - repleted in ED Monitor (8) Hyponatremia: Status: Acute Assessment and plan: Sodium 128 NS 125 ml/h monitor (9) DVT prophylaxis: Status: Deleted Assessment and plan: enoxaparin History of Present Illness History of Present Illness Chief Complaint: Headache, nausea, vomiting, and dizziness for several weeks. Narrative: 74-year-old female presents with persistent headache, dizziness, and nausea/vomiting for approximately 4 weeks. Symptoms began abruptly 3 days after initiating Trulicity for diabetes. Prior to that, patient was on Victoza, which was well tolerated but discontinued due to insurance coverage issues. She was previously evaluated in the ED for hypertensive emergency with BP in the 220s systolic range, improved modestly with antihypertensives. She was started on amlodipine 2.5 mg, which she discontinued 3 days ago due to feeling unwell. She has had no recent trauma, no chest pain, no fever or chills. Presents now for re-evaluation due to persistent symptoms. Reports foggy mental status and daily headaches progressing to nausea and vomiting. No hematemesis or melena. Vital Signs (in ED): * T: 37.1?C * HR: 72 bpm * RR: 16 * BP: 229/129 mmHg * SpO2: 98% RA * Pain: 8/10 Labs: * Sodium: 128 * Magnesium: 1.2 * Glucose: 173 * TSH: 5.08 * Troponins: 5 8 23 * Cr: 1.2 ?eGFR 47 (Stage 3a CKD) * CBC: WNL * VBG: pH 7.35, pCO2 54, HCO3 30 * EKG: Non-ischemic, no QTc abnormality Past Medical History: * Hypertension * Type 2 Diabetes Mellitus * Hyperlipidemia * Hypothyroidism * Depression * Bilateral cataracts * Renal artery stenosis (bilateral) * Spongiotic dermatitis with eosinophils * Cheilitis, dysgeusia, dysphagia Past Surgical History: * Cataract surgery * Cholecystectomy * [place] teeth extraction * Tubal ligation * Colonoscopy (2017, IV sedation) * EGD (date unknown) Medications: * Amlodipine 5 mg ? 1 tab PO daily * Magnesium 250 mg ? 1 tab PO TID * Prochlorperazine 5 mg ? 1 tab PO TID PRN * Lisinopril 40 mg ? PO daily * Metoprolol succinate 100 mg ER ? PO daily * Insulin glargine (Lantus) 100u/mL ? 20 units SQ HS * Insulin lispro (Humalog) ? 2?8 units SQ AC per sliding scale * Metformin 1000 mg ? PO BID * Glimepiride 4 mg ? PO daily * Levothyroxine 75 mcg ? PO daily * Aspirin [address] ? PO daily * Atorvastatin 40 mg ? PO QHS * Omeprazole [address] ? PO daily * Acyclovir 400 mg ? PO TID PRN * Calcium 1000 mg ? PO daily * Multivitamin ? PO daily * Triamcinolone 0.1% cream ? topical BID Discontinued: * Trulicity 0.75 mg SQ weekly ? suspected cause of nausea/vomiting Allergies: * Betamethasone (from Lotrisone) * Clotrimazole (from Lotrisone) ? 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 BP > 220 systolic with end-organ effect (elevated troponin) * Adverse Drug Reaction to Trulicity ? GI symptoms started shortly after initiation * Hypomagnesemia and Hyponatremia ? likely secondary to vomiting; supplemented * Type 2 Diabetes Mellitus ? on basal/bolus insulin + orals * Headache, Nausea, Vomiting ? resolving with withdrawal of Trulicity * CKD Stage 3a ? baseline Cr 1.2, GFR 47 * Mild TSH Elevation ? monitor, continue levothyroxine Plan: * Admit for BP control, electrolyte monitoring, and troponin trending * Continue lisinopril, metoprolol, increase amlodipine to 5 mg * Hold Trulicity permanently * Replace magnesium IV and PO * Administer prochlorperazine for nausea * Monitor glucose, continue diabetes regimen * Outpatient vascular referral for carotid stenosis * Follow-up with PCP Dr. Erickson 04/07 @ 11:45 AM * Reassess thyroid function in follow-up Admitted to the medical floor for further testing and treatment. Patient agrees with plan of care. Patient is a full code. Review of Systems Narrative: Constitutional: No fever or chills HEENT: Headache, dizziness Cardiac: No chest pain, no palpitations Respiratory: No SOB, no cough GI: Nausea, vomiting, no diarrhea or constipation : No dysuria or hematuria Neuro: Foggy feeling, no syncope, no focal weakness Psych: No suicidal ideation Skin: History of dermatitis Endocrine: History of hypothyroidism and diabetes PFSH All Active Problems (Updated 04/04/25 @ 17:36 by Josefa De Los Santos NP) Hyponatremia (Acute) Vomiting (Acute) Hypertensive crisis (Acute) Adverse drug effect (Acute) Acute hyponatremia (Acute) Hypomagnesemia (Acute) Nausea & vomiting (Acute) Headache (Acute) Spongiotic dermatitis (Acute) with eosinophils, Dr. Jarquin Renal artery stenosis, [place], bilateral (Acute) Dysgeusia (Acute) Cheilitis (Acute) Dysphagia (Acute) Medical History Diabetes mellitus Depression Hypothyroidism Hyperlipemia Hypertension Bilateral cataracts Surgical History Hx of cataract surgery [place] teeth extracted History of esophagogastroduodenoscopy (EGD) Hx of colonoscopy Hx of cholecystectomy Tubal Ligation, Colonoscopy - IV Sedation (12/19/16) Cholecystectomy Family History Mother CAD (coronary artery disease) Pacemaker Father Diabetes CAD (coronary artery disease) Sister CAD (coronary artery disease) Social History (Updated 02/21/25 @ 15:32 by Edwin Dumas) Smoking/Tobacco Use Status: Former Tobacco Use Quit Date: 11/16/03 Smoking risk assessment performed?: Yes Alcohol Intake: never Drug use: Never Substance use type: does not use Housing: house Do you feel safe at home: Yes Do you feel safe in your relationship?: Yes Additional Social history: lives in her own apartment in [facility] office in [place]. Daughter Maritza linares. Meds Allergies and Home Medications Allergies Allergy/AdvReac Type Severity Reaction Status Date / Time betamethasone (From Allergy Intermediate Skin Rash Unverified 04/04/25 10:33 Lotrisone) clotrimazole (From Lotrisone) Allergy Intermediate Skin Rash Unverified 04/04/25 10:33 Home Medications ?Medication ?Instructions ?Recorded ?Confirmed ?Type aspirin 81 mg tablet,delayed 81 mg PO DAILY 01/29/21 04/04/25 History release calcium 500 mg tablet 1,000 mg PO DAILY 01/29/21 04/04/25 History insulin lispro 100 unit/mL 2 - 8 unit subcut AC 01/29/21 04/04/25 History subcutaneous pen (Humalog KwikPen (U-100) Insulin) levothyroxine 75 mcg tablet 75 mcg PO DAILY 01/29/21 04/04/25 History metformin 1,000 mg tablet 1,000 mg PO BID 01/29/21 04/04/25 History (Glucophage) metoprolol succinate 100 mg 100 mg PO DAILY 01/29/21 04/04/25 History tablet,extended release 24 hr therapeutic multivitamin 1 tab PO DAILY 01/29/21 04/04/25 History omeprazole 40 mg capsule,delayed 40 mg PO DAILY 07/09/23 04/04/25 History release acyclovir 200 mg capsule 400 mg PO TID PRN 08/19/24 04/04/25 History triamcinolone acetonide 0.1 % 1 applic topical BID 08/19/24 04/04/25 History topical cream lisinopril 40 mg tablet 40 mg PO DAILY 02/20/25 04/04/25 History atorvastatin 40 mg tablet 40 mg PO QHS #30 tabs 02/21/25 04/04/25 Rx glimepiride 4 mg tablet 4 mg PO DAILY #0 tabs 02/21/25 04/04/25 Rx insulin glargine 100 unit/mL (3 20 unit (0.2 mL) subcut HS #0 mL 02/21/25 04/04/25 Rx mL) subcutaneous pen (Lantus Solostar U-100 Insulin) amlodipine 5 mg tablet 5 mg PO DAILY #10 tabs 04/04/25 Rx magnesium 250 mg tablet 250 mg PO TID #9 tabs 04/04/25 Rx prochlorperazine maleate 5 mg 5 mg PO TID PRN #12 tabs 04/04/25 Rx tablet (Compazine) Exam Narrative Exam Narrative: General: Alert and oriented x4 HEENT: Oropharynx clear, pupils equal/reactive Neck: No JVD Cardiac: RRR, no murmurs Respiratory: Clear to auscultation GI: Non-tender, no rebound Neuro: CN II?XII intact, negative for cerebellar signs Psych: Calm, appropriate Skin: No acute rashes or lesions noted Results Labs 04/04/25 10:45 04/04/25 10:45 Labs: Laboratory Results - last 24 hr 04/04/25 04/04/25 04/04/25 10:45 11:07 11:51 WBC 5.57 RBC 4.58 Hgb 12.5 Hct 38.4 MCV 84 MCH 27.3 MCHC 32.6 RDW 13.2 Plt Count 293 MPV 9.6 Immature Gran % 0.5 Neutrophils % 54.4 Lymphocytes % 30.2 Monocytes % 10.1 Eosinophils % 3.9 Basophils % 0.9 Nucleated RBC % 0.0 Absolute Neutrophils 3.03 Absolute Lymphocytes 1.68 Absolute Monocytes 0.56 Absolute Eosinophils 0.22 Absolute Basophils 0.05 VBG pH 7.35 VBG pCO2 54 H VBG pO2 22 VBG HCO3 30 H VBG Total CO2 27 VBG O2 Saturation 29 VBG Base Excess 4 H Sodium 128 L Potassium 4.3 Chloride 91 L Carbon Dioxide 29.3 Anion Gap 7.7 BUN 19 H Creatinine 1.2 H Est GFR (CKD-EPI 2020) 47.21 Glucose 173 H Calcium 9.5 Magnesium 1.2 L Total Bilirubin 0.6 AST 13 L ALT 16 Alkaline Phosphatase 81 Troponin I 5 8 Total Protein 7.7 Albumin 4.1 TSH 5.08 H Free T4 1.16 Urine Color Yellow Urine Clarity Clear Urine pH 7.0 Ur Specific [place] 1.015 Urine Protein 100 H Urine Ketones Negative Urine Blood Negative Urine Nitrite Negative Urine Bilirubin Negative Urine Urobilinogen 0.2 Ur Leukocyte Esterase Negative Urine RBC 0-2 Urine WBC 0-2 Ur Epithelial Cells Rare Urine Crystals Negative Urine Bacteria Few Urine Casts Negative Urine Mucus Trace Ur Culture Indicated? No Urine Glucose Negative 04/04/25 13:46 WBC RBC Hgb Hct MCV MCH MCHC RDW Plt Count MPV Immature Gran % Neutrophils % Lymphocytes % Monocytes % Eosinophils % Basophils % Nucleated RBC % Absolute Neutrophils Absolute Lymphocytes Absolute Monocytes Absolute Eosinophils Absolute Basophils VBG pH VBG pCO2 VBG pO2 VBG HCO3 VBG Total CO2 VBG O2 Saturation VBG Base Excess Sodium Potassium Chloride Carbon Dioxide Anion Gap BUN Creatinine Est GFR (CKD-EPI 2020) Glucose Calcium Magnesium Total Bilirubin AST ALT Alkaline Phosphatase Troponin I 23 Total Protein Albumin TSH Free T4 Urine Color Urine Clarity Urine pH Ur Specific [place] Urine Protein Urine Ketones Urine Blood Urine Nitrite Urine Bilirubin Urine Urobilinogen Ur Leukocyte Esterase Urine RBC Urine WBC Ur Epithelial Cells Urine Crystals Urine Bacteria Urine Casts Urine Mucus Ur Culture Indicated? Urine Glucose Last Vital Signs Temp 36.6 C 04/04/25 16:05 Pulse 72 04/04/25 16:05 Resp 17 04/04/25 16:05 BP 172/76 H 04/04/25 16:05 Pulse Ox 99 04/04/25 16:05 Time Spent Time spent with Patient: 40-54 minutes Time was spent: preparing to see the patient(eg.review tests), obtaining and/or reviewing separately otained hiistory, ordering medications,tests, procedures, referring, communicating with other health home care manager rn, indepentently interpreting results, counseling the patient and care coordination
[2025-04-04] MEDS: Atorvastatin 40 MG TAB PO (19:40)
[2025-04-04] MEDS: Insulin Glargine 300 UNITS/3 ML PEN 20 UNITS SC (19:41)
[2025-04-04] MEDS: Enoxaparin 40 MG/0.4 ML SYR SC (19:41)
[2025-04-05] MEDS: Normal Saline 1,000 ML 125 ML IV (02:02)
[2025-04-05 04:12] VITALS: BP 114/57; PULSE 64; RESP 19; TEMP 37.2; O2SAT 98
[2025-04-05] MEDS: Levothyroxine 75 MCG TAB PO (05:27)
[2025-04-05 06:59] LABS: Abs Immature Grans 0.02 10^3/uL (0.0-0.06); Absolute Basophil Count 0.04 10^3/uL (0.0-0.2); Absolute Eosinophil Count 0.23 10^3/uL (0.0-0.7); Absolute Lymphocyte Count 1.38 10^3/uL (1.2-3.4); Absolute Monocyte Count 0.49 10^3/uL (0.1-0.8); Absolute Neutrophil Count 2.52 10^3/uL (1.2-6.7); Basophils % 0.9 %; Eosinophils % 4.9 %; HGB 10.6 g/dL (11.2-15.7); Immature Grans % 0.4 %; Lymphocytes % 29.5 %; MCH 27.5 pg (27.0-33.0); MCHC 33.1 % (32.0-36.0); MCV 83 fL (80-95); MPV 9.6 fL (8.0-11.0); Monocytes % 10.5 %; Neutrophils % 53.8 %; Platelet Count 227 10^3/uL (130-400); RBC 3.85 10^6/uL (3.93-5.22); RDW 13.2 % (11.7-14.6); RDW-SD 39.8 fL; WBC 4.68 10^3/uL (4.4-10.8)
[2025-04-05 07:07] VITALS: BP 123/110; PULSE 66; RESP 18; TEMP 36.2; O2SAT 66
[2025-04-05 07:20] LABS: Anion Gap 5.7 mmol/L (3-11); BUN 18 mg/dL (7-18); CO2 28.3 mmol/L (21.0-32.0); Calcium 8.5 mg/dL (8.5-10.1); Chloride 96 mmol/L (98-107); Estimated GFR 58.75 (mL/min/1.73m2); Glucose 158 mg/dL (74-106); Magnesium 1.3 mg/dL (1.8-2.4); Potassium 4.4 mmol/L (3.5-5.1); Sodium 130 mmol/L (136-145)
[2025-04-05] MEDS: Calcium Carbonate 1.25 GM TAB 2.5 GM PO (07:35)
[2025-04-05] MEDS: Multivitamin TAB 1 TAB PO (07:36)
[2025-04-05] MEDS: Omeprazole 20 MG CAPCR 40 MG PO (07:36)
[2025-04-05] MEDS: Lisinopril 20 MG TAB 40 MG PO (07:36)
[2025-04-05] MEDS: Insulin Aspart 300 UNITS/3 ML PEN SC (07:36)
[2025-04-05] MEDS: Aspirin E.C. 81 MG TABEC PO (07:36)
[2025-04-05] MEDS: Metoprolol CR 100 MG TABCR PO (07:36)
--- NOTE | 2025-04-05 08:30 | PDOC.CMIN ---
Date of service: 04/05/25 Time of Service: 08:30 Care Management Initial Assmt Initial Assessment Reason for Hospitalization: Hyponatremia, hypomagnesemia Functional Status/Living Situation Town of Residence: [facility] Advance Directives Advance Directives: Do you have an Advance Directive: N 02/15/21 09:37 AD On File at [facility]: N 01/28/21 17:35 Date Asked 03/14/25 03/14/25 09:26 AD Date Reviewed COLST On File at [facility] COLST Date Scanned Code Status Resuscitation Status Full Code Portal Pt does not currently have a portal and education provided: Yes Insurance Coverage/Financial Issues Insurance: BC/BS? Care Team Visit Care Team Role Provider Type Josefa De Los Santos NP MD [facility] STAFF PHYSICIAN Erin Erickson Primary Care Provider NON-[facility] STAFF PHYSICIAN Lanette Olson, [facility] Other Providers PILOT CONTROL OPERATOR Franko Madden RDN Other Providers PILOT CONTROL OPERATOR ANJEL Sebastian Emergency Provider PHYSICIANS LUMP RECEIVER Kevin Gomez MD Admit Provider [facility] STAFF PHYSICIAN Attending Provider Discharge Potential Discharge Needs: PCP F/U Appt Anticipated Barriers to Discharge: None Identified Patient/Family Education Needs: Review discharge instructions, discuss Ask Me Three Transportation: Private vehicle Plan: Anticipate Jessica will be discharged home once medically ready. She will follow up with her community providers and discharge plan of care. Luis Miguel will transport via private vehicle by family. CM will continue to follow and adjust the plan as needed. Social Determinants of Health Screening Social Determinants of health last assessed in clinic: 04/05/25 Will the Patient Participate in the Screening?: Yes Do you worry about having a steady place to live?: no Problems where you live: no known problems In the past 12 months, have you had to go without electric, gas, oil or water in your home?: no 1. Within the past 12 months, we worried whether our food would run out before we got money to buy more.: Never true 2. Within the past 12 months, the food we bought just didn't last and we didn't have money to get more.: Never true Has lack of transportation kept you from medical appointments or from doing things needed for daily living?: no Has anyone in your life made you feel unsafe or unsupported?: no How hard is it for you to pay for the very basics like food, housing, medical care, and heating? Would you say it is:: Not hard at all Do you want help finding or keeping work or a job?: I do not need or want help If for any reason you need help with day-to-day activities such as bathing, preparing meals, shopping, managing finances, etc., do you get the help you need?: I don?t need any help How often do you feel lonely or isolated from those around you?: Never Do you speak a language other than Panamanian at home?: Yes Does the patient want assistance with any of the above?: No Health Related Social Needs Health related social needs: education (Z55.6) PFSH All Active Problems (Updated 04/04/25 @ 17:36 by Josefa De Los Santos NP) Hyponatremia (Acute) Vomiting (Acute) Hypertensive crisis (Acute) Adverse drug effect (Acute) Acute hyponatremia (Acute) Hypomagnesemia (Acute) Nausea & vomiting (Acute) Headache (Acute) Spongiotic dermatitis (Acute) with eosinophils, Dr. Jarquin Renal artery stenosis, [place], bilateral (Acute) Dysgeusia (Acute) Cheilitis (Acute) Dysphagia (Acute) Medical History Diabetes mellitus Depression Hypothyroidism Hyperlipemia Hypertension Bilateral cataracts Surgical History Hx of cataract surgery [place] teeth extracted History of esophagogastroduodenoscopy (EGD) Hx of colonoscopy Hx of cholecystectomy Tubal Ligation, Colonoscopy - IV Sedation (12/19/16) Cholecystectomy Family History Mother CAD (coronary artery disease) Pacemaker Father Diabetes CAD (coronary artery disease) Sister CAD (coronary artery disease) Social History (Updated 02/21/25 @ 15:32 by Edwin Dumas) Smoking/Tobacco Use Status: Former Tobacco Use Quit Date: 11/16/03 Smoking risk assessment performed?: Yes Alcohol Intake: never Drug use: Never Substance use type: does not use Housing: house Do you feel safe at home: Yes Do you feel safe in your relationship?: Yes Additional Social history: lives in her own apartment in [facility] office in [place]. Daughter Maritza linares.
[2025-04-05 09:39] VITALS: BP 143/83
--- NOTE | 2025-04-05 09:51 | W.INDIABCONS ---
Date of service: 04/05/25 Diabetes Inpatient Consult Reason for Visit: received consult re: diabetes education/mgt DESCRIPTION/ASSESSMENT: Pt is 74yo female being treated for HTN crisis, vomiting, hyponatremia, hypomagnesemia. Ordered for heart healthy and diabetes consistent diet - I modified this to just consistent CHO as HH too restrictive and pt with wt loss hx (about 9kg over the last 6 years).
[2025-04-05 10:00] VITALS: PULSE 65
[2025-04-05] MEDS: MAGNESIUM SULFATE 2 GM/50 ML BAG IV_INF (10:46)
--- NOTE | 2025-04-05 11:08 | PDOC.CMDIS ---
Date of service: 04/05/25 Time of Service: 11:14 LACE Index Scoring Tool Questions: Length of Stay (in days): 1 Was the patient admitted via the E.D.?: Yes E.D. Visits: 2 Answers: Total Score: 6 Risk of Readmission: Low Risk Care Management Discharge Plan Reason for Hospitalization: Hyponatremia, hypomagnesemia Discharge Plan: Luis Miguel will be discharged home today with no new services. She will follow up with her community providers and continue per her discharge plan of care. Per ED, a [facility] [place] been [facility]. Luis Miguel will transport via private vehicle by her daughter. Patient/Family Education Needs: Review of discharge instructions, activity, limitations and plan of care. Discuss Ask Me Three. SDOH Health Related Social Needs: Health related social needs food insecurity (Z59.41), problems with daily activities (Z73.9)
--- NOTE | 2025-04-05 13:09 | DSE_ITS ---
Date of service: 04/05/25 Time of Service: 13:09 DS: Diagnosis Discharge Diagnosis (1) Hypomagnesemia: Status: Acute (2) Hyponatremia: Status: Acute Discharge Plan Disposition Patient Disposition: Home Condition: Fair Discharge Details Reason For Visit: Hyponatremia, hypomagnesemia Admit Date/Time: 04/04/25 15:23 Admit Provider: Kevin Gomez Attending Provider: Kevin Gomez Primary Care Provider: Erin Erickson Hospital Course Hospital Course: This is a 74-year-old female who was admitted for hypertensive crisis and related symptoms of nausea, vomiting, and dizziness. The patient reports persistent headache, dizziness, and nausea for approximately 4 weeks, beginning 3 days after the initiation of Trulicity for diabetes management. She has a history of hypertensive emergency with a BP in the 220s systolic and was started on amlodipine 2.5 mg. The patient presented to the ED with BP of 229/129 mmHg, Her symptoms of vomiting and nausea were suspected to be related to Trulicity. Additionally, the patient was found to have mild hypomagnesemia and hyponatremia, which were addressed during the hospitalization. Trulicity was discontinued. She was treated with IV fluids, antihypertensive medications, and electrolyte repletion. Patient is tolerating oral fluids and solids. She denies nausea, denies headache. Her BP and electrolytes were stabilized, and she was discharged with appropriate follow-up care. Hospital Course: * Hypertensive Crisis: * The patient's BP was initially elevated to 229/129 mmHg. Hydralazine was administered in the ED to manage her BP, and the patient was admitted for further observation and BP control. Her BP was successfully managed with a combination of lisinopril, metoprolol, and amlodipine. * Vomiting: * Vomiting was suspected to be secondary to the newly initiated GLP-1 receptor agonist, Trulicity. The medication was discontinued, and the patient?s symptoms of nausea and vomiting have resolved. Compazine Rx sent by ED provider. * Hypertension: * The patient's hypertension was poorly controlled due to the discontinuation of HCTZ following spinal surgery earlier this year, which led to hyponatremia. Her antihypertensive regimen was adjusted, and she will continue with amlodipine and metoprolol. BP is monitored closely. Amlodipine increased to 5 mg daily by ED provider. * Diabetes Mellitus: * The patient's blood glucose was 176 mg/dL on admission. Metformin was held due to her acute illness, and insulin therapy was adjusted. Sliding-scale insulin was used to manage her glucose levels, and she was continued on basal insulin. Return to home medications - no changes. * Hypothyroidism: * TSH was mildly elevated at 5.08 but was not contributing to her hyp ertension or other acute issues. Her levothyroxine was continued as prescribed and will be managed by her PCP. * Spongiotic Dermatitis: * The patient's dermatitis was mild, and skin care was provided. * Electrolyte Imbalances (Hypomagnesemia and Hyponatremia): * The patient presented with a sodium of 128 and magnesium of 1.2. Both electrolytes were corrected during the hospitalization. Magnesium supplementation was continued post-discharge. * Renal Function: * The patient has a history of chronic kidney disease (Stage 3a). Her creatin ine was elevated at 1.2 with an estimated GFR of 47. Renal function was monitored. * Medications: * Amlodipine 5 mg: Continue 1 tablet daily at home. (Increased from 2.5 mg by ED provider) * Trulicity: Hold until seen by Primary Care Provider (PCP). * Metoprolol 100 mg ER: Continue 1 tablet daily. * Lisinopril 40 mg: Continue 1 tablet daily. * Magnesium 250 mg: Continue 1 tablet three times daily. (sent by ED provider) * Prochlorperazine 5 mg: Take 1 tablet as needed for nausea. (sent by ED provider) * Insulin Glargine (Lantus) 20 units: Continue at bedtime. * Insulin Lispro (Humalog): Continue per sliding scale. * Levothyroxine 75 mcg: Continue 1 tablet daily. * Follow-up: * Primary Care Provider: Follow-up with Dr. Erickson on 04/07/25 at 11:45 AM for ongoing care of hypertension, diabetes, and thyroid function. Discuss the reinitiation of Trulicity at that time. * Vascular Surgery: Referral for follow-up of carotid stenosis and renal artery stenosis to [facility] has been sent (imaging from 02/21/25). * Endocrinology: Follow-up for diabetes and thyroid management as needed * Diet & Lifestyle: * Diet: Continue a low-sodium, balanced diet to manage BP and diabetes. Monitor blood glucose closely. * Activity: Gradual return to normal activities as tolerated. Avoid strenuous activity until cleared by the PCP. * Patient Education: * Hypertension Management: Educated on the importance of BP monitoring and adherence to prescribed antihypertensive medications. * Diabetes Care: Reinforced proper insulin use, blood glucose monitoring, and adherence to the diabetes management plan. * Medication Management: Emphasized the need to avoid any non-prescribed medications that may impact BP or diabetes control, including [id number] ter medications and herbal supplements. Home Meds and New Rx's Prescriptions: New magnesium 250 mg tablet 250 mg PO TID Qty: 9 0RF prochlorperazine maleate [Compazine] 5 mg tablet 5 mg PO TID PRNQty: 12 0RF amlodipine 5 mg tablet 5 mg PO DAILY Qty: 10 0RF Continued omeprazole 40 mg capsule,delayed release(DR/EC) 40 mg PO DAILY acyclovir 200 mg capsule 400 mg PO TID PRN triamcinolone acetonide 0.1 % cream 1 applic topical BID metoprolol succinate 100 mg Tablet Extended Release 24 Hr 100 mg PO DAILY calcium 500 mg Tablet 1,000 mg PO DAILY therapeutic multivitamin Tablet 1 tab PO DAILY aspirin 81 mg Tablet,Delayed Release (Dr/Ec) 81 mg PO DAILY levothyroxine 75 mcg Tablet 75 mcg PO DAILY metformin [Glucophage] 1,000 mg Tablet 1,000 mg PO BID insulin lispro [Humalog KwikPen Insulin] 100 unit/mL Insulin Pen 2 - 8 unit SUBCUT AC Rx Instructions: TID FOR CORRECTION OF HIGH BG >150 lisinopril 40 mg tablet 40 mg PO DAILY Patient Comments: TAKE ONE TABLET BY MOUTH EVERY DAY atorvastatin 40 mg tablet 40 mg PO QHS Qty: 30 1RF insulin glargine [Lantus Solostar U-100 Insulin] 100 unit/mL (3 mL) insulin pen 20 unit SUBCUT HS Qty: 0 0RF glimepiride 4 mg Tablet 4 mg PO DAILY Qty: 0 0RF Discontinued Trulicity 0.75 mg/0.5 mL pen injector 0.75 mg subcut QWEEK amlodipine 2.5 mg Tablet 2.5 mg PO DAILY Qty: 30 1RF Patient Comments: pt states this medication doesnt help and she feels terrible taking it Discharge Instructions Instructions: High blood pressure in adults, Adverse Drug Reactions, Adult (DC), Hyponatremia, Hypomagnesemia Additional Instructions: Take amlodipine 5 mg daily (increased from 2.5 mg by the ED provider). Start magnesium supplementation (as ordered by the emergency department provider) Have your electrolytes checked next week (these have been ordered) Your images have been sent to [facility] as well as a referral to vascular surgery for your carotid stenosis. Trulicity (dulaglutide) can cause side effects like nausea, vomiting, and headache in some people. These side effects are more common when you first start the medication or after a dose increase. They typically go away as your body gets used to the medication, but some people may experience them for a longer period. Other common side effects include: * Diarrhea * Abdominal pain * Loss of appetite * Fatigue It's a good idea to talk to Dr Erickson about this on Thursday. They may be able to adjust your dosage or recommend ways to manage these symptoms. Hold trulicity until then. Follow up with Dr Erickson as planned on Thursday. Stand Alone Forms: Nursing Discharge Form Referrals: Erin Erickson [Primary Care Provider] - 04/07/25 11:45 am (Carotid stenosis, (vascular referral to [facility] sent) hypertension - ED increased her amlodipine, hypomag, ED sent Rx for mag, hyponatremia, improved to 130 on discharge - out patient labs ordered for next week. ) Activity:: Activity as Tolerated Equipment/Supplies:: No Equipment Needed Diet:: Heart healthy diabetic Discharge Orders Discharge Orders: Discharge Order (Routine); Ordered 04/05/25 Ordered By: Josefa De Los Santos Other Ambulatory Orders: Comprehensive Metabolic Panel (Routine) Timeframe: 1 Week Facility: [facility] - Location: Laboratory Outpatient - [facility] Ordered By: Josefa De Los Santos Magnesium (Routine) Timeframe: 1 Week Facility: [facility] - Location: Laboratory Outpatient - [facility] Ordered By: Josefa De Los Santos Discharge Data Discharge Date/Time-TO BE ENTERED AT DEPARTURE: 04/05/25 13:52 DS: Summary Time Spent with Patient providing and/or coordinating discharge services: Greater than 30 minutes Status at Discharge Functional status at discharge: independent ambulation Overall status at discharge: patient is back to baseline Mental Status: mental status grossly normal Speech and Movement: speech and movement normal Mood: congruent mood Affect: normal affect Quality:SDOH Health Related Social Needs: Health related social needs food insecurity (Z59.41), problems with daily activities (Z73.9) Exam Narrative Exam Narrative: General: Alert and oriented x4 HEENT: Oropharynx clear, pupils equal/reactive Neck: No JVD Cardiac: RRR, no murmurs Respiratory: Clear to auscultation GI: Non-tender, no rebound Neuro: CN II?XII intact, negative for cerebellar signs Psych: Calm, appropriate Skin: No acute rashes or lesions noted Psych Mental Status: mental status grossly normal Speech and Movement: speech and movement normal Mood: congruent mood Affect: normal affect DS: Data Vitals/I&O Vitals and I&O: Vital Signs Temperature 36.2 C L 04/05/25 07:07 Temperature Source Tympanic 04/05/25 07:07 Pulse 65 04/05/25 10:00 Pulse Rhythm Regular 04/04/25 18:37 Pulse 63 04/04/25 14:10 Respiratory Rate 18 04/05/25 07:07 Respiratory Effort Normal 04/04/25 18:37 Respiratory Depth Normal 04/04/25 18:37 Respiratory Pattern Normal 04/04/25 10:47 Blood Pressure 143/83 H 04/05/25 09:39 Blood Pressure Mean 103 04/05/25 09:39 Pulse Oximetry 66 L 04/05/25 07:07 Oxygen Delivery Method Room Air 04/05/25 07:07 Oxygen Flow Rate 0 04/05/25 07:07 Pain Level 0 04/05/25 09:39 Intake & Output 04/04/25 04/05/25 04/05/25 23:59 11:59 23:59 Intake Total 3050 / 3150 3240 / 3240 Output Total 500 / 500 Balance 3050 / 3150 2740 / 2740 Weight 54.431 kg Intake: IV 3050 / 3150 3000 / 3000 Oral 240 / 240 Output: Urine 500 / 500 Other: Urine Color Yellow Yellow Urine Appearance Clear Clear Urine Odor Normal Comment pt self reported Stool Size Small Stool Characteristics Formed Brown Data Completed and Pending Labs on day of discharge: Labs from last 24 hours 04/05/25 06:38: WBC 4.68, RBC 3.85 L, Hgb 10.6 L, Hct 32.0 L, MCV 83, MCH 27.5, MCHC 33.1, RDW 13.2, Plt Count 227, MPV 9.6, Immature Gran % 0.4, Neutrophils % 53.8, Lymphocytes % 29.5, Monocytes % 10.5, Eosinophils % 4.9, Basophils % 0.9, Nucleated RBC % 0.0, Absolute Neutrophils 2.52, Absolute Lymphocytes 1.38, Absolute Monocytes 0.49, Absolute Eosinophils 0.23, Absolute Basophils 0.04, Sodium 130 L, Potassium 4.4, Chloride 96 L, Carbon Dioxide 28.3, Anion Gap 5.7, BUN 18, Creatinine 1.0, Est GFR (CKD-EPI 2020) 58.75, Glucose 158 H, Calcium 8.5, Magnesium 1.3 L 04/04/25 13:46: Troponin I 23 PFSH All Active Problems (Updated 04/05/25 @ 13:14 by Josefa De Los Santos NP) Hyponatremia (Acute) Vomiting (Acute) Hypertensive crisis (Acute) Adverse drug effect (Acute) Acute hyponatremia (Acute) Hypomagnesemia (Acute) Nausea & vomiting (Acute) Headache (Acute) Spongiotic dermatitis (Acute) with eosinophils, Dr. Jarquin Renal artery stenosis, [place], bilateral (Acute) Dysgeusia (Acute) Cheilitis (Acute) Dysphagia (Acute) Medical History Diabetes mellitus Depression Hypothyroidism Hyperlipemia Hypertension Bilateral cataracts Surgical History Hx of cataract surgery [place] teeth extracted History of esophagogastroduodenoscopy (EGD) Hx of colonoscopy Hx of cholecystectomy Tubal Ligation, Colonoscopy - IV Sedation (12/19/16) Cholecystectomy Family History Mother CAD (coronary artery disease) Pacemaker Father Diabetes CAD (coronary artery disease) Sister CAD (coronary artery disease) Social History (Updated 02/21/25 @ 15:32 by Edwin Dumas) Smoking/Tobacco Use Status: Former Tobacco Use Quit Date: 11/16/03 Smoking risk assessment performed?: Yes Alcohol Intake: never Drug use: Never Substance use type: does not use Housing: house Do you feel safe at home: Yes Do you feel safe in your relationship?: Yes Additional Social history: lives in her own apartment in [facility] in [place]. Daughter Maritza close. Time Spent with Patient Time Spent with Patient: 45-69 minutes Time was spent: preparing to see the patient(eg.review tests), ordering medications,tests, procedures, referring, communicating with other health child care team lead, indepentently interpreting results, counseling the patient and care coordination
== END 2025-04-05 13:52 | disposition home or self-care (01) ==
LOC: ER 14:05 → MS 21:43
PROVIDERS: Admitting Provider Hospitalist; Emergency Provider Physician Assistant; PCP Family Medicine; Responsible Provider Nurse Practitioner Family; Visit Provider Hospitalist
DX: I16.9 Hypertensive crisis, unspecified (principal); E87.1 Hypo-osmolality and hyponatremia; T38.3X5A Adverse effect of insulin and oral hypoglycemic [antidiabetic] drugs, initial encounter; R11.2 Nausea with vomiting, unspecified; E03.9 Hypothyroidism, unspecified; I12.9 Hypertensive chronic kidney disease with stage 1 through stage 4 chronic kidney disease, or unspecified chronic kidney disease; E11.22 Type 2 diabetes mellitus with diabetic chronic kidney disease; R42 Dizziness and giddiness; L30.8 Other specified dermatitis; E83.42 Hypomagnesemia; Z79.899 Other long term (current) drug therapy; R13.10 Dysphagia, unspecified; I70.1 Atherosclerosis of renal artery; Z79.4 Long term (current) use of insulin; Z79.84 Long term (current) use of oral hypoglycemic drugs; Z79.85 Long-term (current) use of injectable non-insulin antidiabetic drugs; Z87.891 Personal history of nicotine dependence; K13.0 Diseases of lips; R43.2 Parageusia; N18.31 Chronic kidney disease, stage 3a; R51.9 Headache, unspecified
CPT/HCPCS: 00123; 36415; 80048; 80053; 82805; 93005; 96361; 96365; 96366; 96367; 96372; 96375; 99285; J1650; 70551; 74018; 81003; 81015; 83735; 84439; 84443; 84484; 85025; 93010; 99222; 99239; G0378; J0131; J0360; J0780; J1815; J3475

== ENCOUNTER 2025-05-17 20:55 | Outpatient (REF) | payer MEDICARE, SELFPAY | END 2025-05-17 20:56 | disposition home or self-care (01) | LOC: NCHCN 20:55 | PROVIDERS: PCP Family Medicine; Visit Provider Family Medicine | DX: R30.0 Dysuria (principal) | CPT/HCPCS: 87086 ==

== ENCOUNTER 2025-08-21 19:13 | Outpatient (REF) | payer MEDICARE, SELFPAY ==
[2025-08-21 19:44] LABS: COMMENT (LAB VIEW ONLY) 40.54 mg/dL; Microalb ug/mg Crea 64.9 ug/mg Cr
== END 2025-08-21 19:14 | disposition home or self-care (01) ==
LOC: NCHCN 19:13
PROVIDERS: PCP Family Medicine; Visit Provider Family Medicine
DX: E11.21 Type 2 diabetes mellitus with diabetic nephropathy (principal)
CPT/HCPCS: 82043; 82570